=== PATIENT | female | born 1965 | race Caucasian/White ===

== ENCOUNTER 2021-09-07 16:03 | Emergency (ER) | payer SELFPAY ==
[2021-09-07] VITALS (8 sets, daily range): BP systolic 116–138; BP diastolic 60–84; PULSE 90–114; RESP 12–18; TEMP 36.9; O2SAT 91–95; BMI 22.0
[2021-09-07 17:12] LABS: Add Manual Diff / Slide Review NO; Basophils Absolute Auto 100 /uL (0-100); Basophils Percent Auto 1.6 % (0-2); Eosinophils Absolute Auto 100 /uL (0-450); Eosinophils Percent Auto 0.9 % (2-4); Hematocrit 34.8 % (36-46); Hemoglobin 11.6 g/dL (12.0-16.0); Lymphocytes Absolute Auto 1200 /uL (1100-4500); Mean Corpuscular HGB Conc 33.4 % (30-36); Mean Corpuscular Hemoglobin 32.6 PG (26-34); Mean Corpuscular Volume 97.5 fL (80-100); Monocytes Absolute Auto 1000 /uL (0-900); Monocytes Percent Auto 12.6 % (3-14); Neutrophils Absolute Auto 5400 /uL (1500-7000); Neutrophils Percent Auto 69.9 % (50-75); Platelet Count 157 X10^3/uL (150-400); Red Blood Cell Count 3.56 X10^6/uL (4.0-5.2); Red Cell Distribution Width 15.1 % (11.6-14.8); White Blood Cell Count 7.7 X10^3/uL (4.5-11.0)
[2021-09-07 17:26] LABS: INR 1.6 (0.9-1.3); Prothrombin Time 17.4 SECONDS (10.1-12.7)
[2021-09-07 17:29] LABS: PTT Partial Thromboplastin Tim 41 SECONDS (26.4-36.2)
--- NOTE | 2021-09-07 17:29 | DI.US.S_ITS ---
PROCEDURE: US ABDOMEN LIMITED INDICATIONS: eval for GB pathology TECHNIQUE: Real-time focused scanning was performed of the abdomen, with image documentation. COMPARISON: [facility], CT, CT ABDOMEN PELVIS W CON, 09/07/2021, 17:50. FINDINGS: Liver: Increased echogenicity with nodular contour. Measures approximately 16.4 cm in length. No detectable flow within the portal vein, which may be secondary to poor penetration versus thrombus. Gallbladder: Wall thickening, measuring 3.9 mm. Layering sludge within the gallbladder. The CBD measures up to 3.6 mm. Pancreas: Not well seen. Ascites is noted. IMPRESSION: 1. Increase echogenicity of the liver, suggesting hepatic steatosis. 2. Nodular contour of the liver, suggesting cirrhosis. 3. Poor penetration versus portal vein thrombus. 4. Gallbladder wall thickening, which is nonspecific. 5. Layering sludge. Dictated by: Jono Kiser M.D. on 09/07/2021 at 18:52 Approved by: Jono Kiser M.D. on 09/07/2021 at 19:00
--- NOTE | 2021-09-07 17:29 | DI.RAD.S_ITS ---
PROCEDURE: XR ANKLE LT MIN 3V INDICATIONS: pain after fall TECHNIQUE: 3 views of the ankle were acquired. COMPARISON: None. FINDINGS: Bones: No fractures or dislocations. Ankle mortise is normally aligned. No suspicious bony lesions. The talar dome demonstrates no isabel abnormality. Soft tissues: Generalized soft tissue swelling is seen. IMPRESSION: Soft tissue swelling is seen, without an acute bony abnormality seen by plain film. If there is point tenderness (or other clinical suspicion for a fracture not seen on these images) then a dedicated CT or a short-term followup plain film series could be considered for further evaluation, as clinically appropriate. Dictated by: Angelo Baez M.D. on 09/07/2021 at 16:58 Approved by: Angelo Baez M.D. on 09/07/2021 at 16:59
--- NOTE | 2021-09-07 17:30 | DI.CT.S_ITS ---
PROCEDURE: CT ABDOMEN PELVIS W CON INDICATIONS: Abdominal distension after fall TECHNIQUE: After the administration of intravenous contrast, axial sections acquired from the lung bases to the pubic symphysis. Coronal and sagittal reformats were performed. For radiation dose reduction, the following was used: automated exposure control, adjustment of mA and/or kV according to patient size. COMPARISON: None. FINDINGS: Image quality: Excellent. Lung bases: Unremarkable. Heart: No significant findings. ABDOMEN: Liver: Liver is diffusely hypoattenuating with coarsened parenchymal texture but no evidence of focal mass lesion. Portal vein is patent. The intrahepatic IVC however is quite stenotic, in multiple venous collateral vessels are noted adjacent to the distal esophagus, and adjacent to the spleen6. Large tangle of collateral mesenteric vessels noted in the right lower quadrant as well Gallbladder: Unremarkable. Biliary ducts: Unremarkable. Pancreas: Unremarkable. Spleen: Unremarkable. Adrenal Glands: Unremarkable. Kidneys and Ureters: Unremarkable. Stomach and Bowel: Within the cecum, there is a well-defined cystic structure measuring 5 x 3.2 cm which extends into the appendix, with appendiceal distention up to 1.4 cm. Peritoneum: Large amount of free fluid present in the abdomen and pelvis Ventral Wall: No hernias. Abdominal Nodes: No retroperitoneal or mesenteric adenopathy by size criteria. Vessels: Aorta and inferior vena cava are normal in size. PELVIS: Pelvic Organs: Unremarkable. Bladder: Unremarkable. Pelvic Nodes: No enlarged lymph nodes. Miscellaneous: No hernias are seen. Bones: Unremarkable. IMPRESSION: 1. Irregular hepatic parenchyma, large volume ascites, and mesenteric/para esophageal collateral vessels are all consistent with hepatic cirrhosis and portal venous hypertension. Additionally, however, the intrahepatic IVC appears are quite stenotic and this could reflect sequelae of hepatic venous outflow obstruction as well. 2. Well-defined cystic structure in the cecum extending into the appendix associated with fluid distension of the appendix, without periappendiceal inflammatory change. Differential would include appendiceal mucocele Approved by: Cuba Rodas M.D. on 09/07/2021 at 17:59
[2021-09-07 17:35] LABS: Alanine Aminotransferase 26 IU/L (<35); Albumin 3.3 g/dL (3.5-5.0); Albumin Globulin Ratio 0.7 (1.0-2.8); Alkaline Phosphatase 327 U/L (38-126); Ammonia (NH3) 9 umol/L (9-30); Aspartate Aminotransferase 226 IU/L (14-36); BUN Creatinine Ratio 11.5 (6-22); Bilirubin Total 7.5 mg/dL (0.2-1.3); Blood Urea Nitrogen 9 mg/dL (7-17); Calcium 8.3 mg/dL (8.4-10.2); Carbon Dioxide 29 mmol/L (22-32); Chloride 100 mmol/L (98-107); Estimated Glomerular Filt Rate > 60.0 mL/min (>60); Glucose 109 mg/dL (70-100); HEMOLYSIS < 15 (0-50); Potassium 3.6 mmol/L (3.4-5.1); Sodium 139 mmol/L (137-145); Total Protein 8.3 g/dL (6.3-8.2)
--- NOTE | 2021-09-07 18:53 | ED.ABDPAIN ---
HPI - Abdominal Pain General Chief Complaint: Trauma Stated Complaint: distensed belly after fall 2 weeks ago Time Seen by Provider: 09/07/21 18:44 Source: patient Mode of arrival: Ambulatory Limitations: no limitations History of Present Illness HPI narrative: Patient is a 56-year-old female with no past medical history but does admit to drinking vodka cranberry 1-3 drinks daily presenting today with increased abdominal distention. She actually says that 9-10 days ago she slipped and fell down the stairs. She was outside on the porch and fell down a few stairs after caring some wood. She took her boyfriend with her down the stairs. She hurt her left ankle but is still ambulatory on it no head injury no loss of consciousness. She has not had any nausea or vomiting. However over last 2 days she has had increased abdominal distension, boyfriend thought her eyes looked yellow as well. She says he has lower extremity edema. Her left ankle still hurts to walk she is worried that she may have internal bleeding. Has some shortness of breath. sHe says she feels again but knows that she is not. He has no prior history of ascites or cirrhosis. Related Data Allergies Allergy/AdvReac Type Severity Reaction Status Date / Time No Known Drug Allergies Allergy Verified 09/07/21 16:36 Review of Systems Review of Systems Narrative: GENERAL: Denies chills, fatigue, malaise, fever, sweats, travel HEENT: Denies sinus pain, ear pain, sore throat, difficulty swallowing, neck pain RESPIRATORY: Denies dyspnea, cough, wheezing, hemoptysis, sputum. CARDIOVASCULAR: Denies chest pain, palpitations, orthopnea, edema GASTROINTESTINAL: Abdominal distension : Denies dysuria, frequency, incontinence, hematuria, urinary retention, flank pain. MUSCULOSKELETAL: Denies weakness, joint pain, or bony pain SKIN: No rash, no erythema, no pruritus NEUROLOGIC: Denies weakness, dizziness, headache, numbness, change in speech, confusion PSYCHIATRIC: No concerning psychosocial issues. 12 point review of systems is negative except for those stated above and HPI Patient History Social History Smoking Status: Never smoker Smoking Status: Never smoker alcohol intake frequency: 0-2 drinks per day Substance Use Type: does not use Exam Initial Vital Signs Initial Vital Signs: Vital Signs Temperature 98.5 F 11/24/21 16:32 Pulse Rate 114 H 09/07/21 16:32 Respiratory Rate 18 09/07/21 16:32 Blood Pressure 136/84 09/07/21 16:32 Pulse Oximetry 95 09/07/21 16:32 GENERAL: Alert 56-year-old female appears mildly jaundiced awake alert and oriented x4 in no acute distress. HEENT: Head atraumatic,EOMI, pupils reactive, face symmetric, moist mucous membranes CARDIOVASCULAR: Regular rate and rhythm without murmurs, rubs or gallops. RESPIRATORY: Breath sounds equal bilaterally, no wheezes rales or rhonchi. ABDOMEN: Soft, distension,+ fluid wave : No CVA tenderness EXTREMITIES: Normal range of motion, no clubbing or edema. Neurovascularly intact NEUROLOGICAL: Alert and oriented x4.Normal gait and speech. SKIN: Jaundiced no erythema no abscess Procedures Paracentesis Local Anesthetic: lidocaine 1% Amount of anesthesia used (mL): 3 Fluid: clear and sent to lab for analysis Post Procedure Exam: awake, alert, normal BP, normal HR and normal SpO2 Patient Tolerated Procedure: Well Complications: none (At site needed 3 sutures to stop leakage and bleeding) Course Orders Ordered: ED Orders 09/07/21 17:03 Ammonia (NH3) Stat Complete Blood Count AUTO DIFF Stat Comprehensive Metabolic Panel Stat ETOH [Ethanol (ETOH)] Stat Lactate (Lactic Acid) Stat Partial Thromboplastin Time Stat Prothrombin Time INR Stat 09/07/21 17:29 US abdomen limited Stat XR ankle LT min 3V Stat 09/07/21 17:30 CT abdomen pelvis w con Stat 09/07/21 21:15 Albumin Body Fluid Stat Body Fluid Culture Stat Cell Count w Diff Body Fluid Stat 09/07/21 21:40 Ethanol (ETOH) Stat Vital Signs Vital signs: Vital Signs - 8 hr 09/07/21 19:47 09/07/21 20:00 09/07/21 20:30 Pulse Rate 108 H 106 H 107 H Respiratory Rate 12 15 14 Blood Pressure 138/80 127/68 124/72 Pulse Oximetry 94 93 94 09/07/21 21:00 09/07/21 21:30 09/07/21 22:00 Pulse Rate 109 H 111 H 112 H Respiratory Rate 15 14 15 Blood Pressure 128/71 116/66 119/60 Pulse Oximetry 94 91 92 09/07/21 22:30 Pulse Rate 90 Respiratory Rate 14 Blood Pressure 116/60 Pulse Oximetry 93 MDM - Abdominal Pain Lab Data Result diagrams: 09/07/21 17:03 09/07/21 17:03 Labs: Lab Results 09/07/21 09/07/21 09/07/21 Range/Units 17:03 17:03 17:03 WBC 7.7 (4.5-11.0) X10^3/uL RBC 3.56 L (4.0-5.2) X10^6/uL Hgb 11.6 L (12.0-16.0) g/dL Hct 34.8 L (36-46) % MCV 97.5 (80-100) fL MCH 32.6 (26-34) PG MCHC 33.4 (30-36) % RDW 15.1 H (11.6-14.8) % Plt Count 157 (150-400) X10^3/uL Neut % (Auto) 69.9 (50-75) % Lymph % (Auto) 15.0 L (25-40) % [place] % (Auto) 12.6 (3-14) % Eos % (Auto) 0.9 L (2-4) % Baso % (Auto) 1.6 (0-2) % Neut # (Auto) 5400 (4679-3678) /uL Lymph # (Auto) 1200 (9534-8372) /uL [place] # (Auto) 1000 H (0-900) /uL Eos # (Auto) 100 (0-450) /uL Baso # (Auto) 100 (0-100) /uL PT 17.4 H (10.1-12.7) SECONDS INR 1.6 H (0.9-1.3) APTT 41 H (26.4-36.2) SECONDS Sodium 139 (137-145) mmol/L Potassium 3.6 (3.4-5.1) mmol/L Chloride 100 (98-107) mmol/L Carbon Dioxide 29 (22-32) mmol/L BUN 9 (7-17) mg/dL Creatinine 0.78 (0.52-1.04) mg/dL Estimated GFR > 60.0 (>60) mL/min BUN/Creatinine Ratio 11.5 (6-22) Glucose 109 H (70-100) mg/dL Lactate (0.7-2.1) mmol/L Calcium 8.3 L (8.4-10.2) mg/dL Total Bilirubin 7.5 H (0.2-1.3) mg/dL AST 226 H (14-36) IU/L ALT 26 (<35) IU/L Alkaline Phosphatase 327 H (38-126) U/L Ammonia (9-30) umol/L Total Protein 8.3 H (6.3-8.2) g/dL Albumin 3.3 L (3.5-5.0) g/dL Globulin 5.0 H (1.7-4.1) g/dL Albumin/Globulin Ratio 0.7 L (1.0-2.8) Fluid Color Fluid Appearance Fluid RBC /uL Fld Tot Nucleated Cell /uL Fluid Polynuclear WBCs % Fluid Mononuclear WBCs % Fluid Eosinophils % Fluid Other Cells % Body Fluid Clot Fluid Albumin g/dL Ethyl Alcohol ( - 10) mg/dL 09/07/21 09/07/21 09/07/21 Range/Units 17:03 17:03 17:03 WBC (4.5-11.0) X10^3/uL RBC (4.0-5.2) X10^6/uL Hgb (12.0-16.0) g/dL Hct (36-46) % MCV (80-100) fL MCH (26-34) PG MCHC (30-36) % RDW (11.6-14.8) % Plt Count (150-400) X10^3/uL Neut % (Auto) (50-75) % Lymph % (Auto) (25-40) % [place] % (Auto) (3-14) % Eos % (Auto) (2-4) % Baso % (Auto) (0-2) % Neut # (Auto) (4783-7080) /uL Lymph # (Auto) (1862-5855) /uL [place] # (Auto) (0-900) /uL Eos # (Auto) (0-450) /uL Baso # (Auto) (0-100) /uL PT (10.1-12.7) SECONDS INR (0.9-1.3) APTT (26.4-36.2) SECONDS Sodium (137-145) mmol/L Potassium (3.4-5.1) mmol/L Chloride (98-107) mmol/L Carbon Dioxide (22-32) mmol/L BUN (7-17) mg/dL Creatinine (0.52-1.04) mg/dL Estimated GFR (>60) mL/min BUN/Creatinine Ratio (6-22) Glucose (70-100) mg/dL Lactate 3.2 H (0.7-2.1) mmol/L Calcium (8.4-10.2) mg/dL Total Bilirubin (0.2-1.3) mg/dL AST (14-36) IU/L ALT (<35) IU/L Alkaline Phosphatase (38-126) U/L Ammonia 9 (9-30) umol/L Total Protein (6.3-8.2) g/dL Albumin (3.5-5.0) g/dL Globulin (1.7-4.1) g/dL Albumin/Globulin Ratio (1.0-2.8) Fluid Color Fluid Appearance Fluid RBC /uL Fld Tot Nucleated Cell /uL Fluid Polynuclear WBCs % Fluid Mononuclear WBCs % Fluid Eosinophils % Fluid Other Cells % Body Fluid Clot Fluid Albumin g/dL Ethyl Alcohol 192 H ( - 10) mg/dL 09/07/21 09/07/21 09/07/21 Range/Units 21:15 21:40 21:40 WBC (4.5-11.0) X10^3/uL RBC (4.0-5.2) X10^6/uL Hgb (12.0-16.0) g/dL Hct (36-46) % MCV (80-100) fL MCH (26-34) PG MCHC (30-36) % RDW (11.6-14.8) % Plt Count (150-400) X10^3/uL Neut % (Auto) (50-75) % Lymph % (Auto) (25-40) % [place] % (Auto) (3-14) % Eos % (Auto) (2-4) % Baso % (Auto) (0-2) % Neut # (Auto) (4021-3819) /uL Lymph # (Auto) (2052-1058) /uL [place] # (Auto) (0-900) /uL Eos # (Auto) (0-450) /uL Baso # (Auto) (0-100) /uL PT (10.1-12.7) SECONDS INR (0.9-1.3) APTT (26.4-36.2) SECONDS Sodium (137-145) mmol/L Potassium (3.4-5.1) mmol/L Chloride (98-107) mmol/L Carbon Dioxide (22-32) mmol/L BUN (7-17) mg/dL Creatinine (0.52-1.04) mg/dL Estimated GFR (>60) mL/min BUN/Creatinine Ratio (6-22) Glucose (70-100) mg/dL Lactate 2.3 H (0.7-2.1) mmol/L Calcium (8.4-10.2) mg/dL Total Bilirubin (0.2-1.3) mg/dL AST (14-36) IU/L ALT (<35) IU/L Alkaline Phosphatase (38-126) U/L Ammonia (9-30) umol/L Total Protein (6.3-8.2) g/dL Albumin (3.5-5.0) g/dL Globulin (1.7-4.1) g/dL Albumin/Globulin Ratio (1.0-2.8) Fluid Color Yellow Fluid Appearance Clear Fluid RBC < 1000 /uL Fld Tot Nucleated Cell 91 /uL Fluid Polynuclear WBCs 1 % Fluid Mononuclear WBCs 80 % Fluid Eosinophils 0 % Fluid Other Cells 19 % Body Fluid Clot No clots present Fluid Albumin < 1.0 g/dL Ethyl Alcohol 157 H ( - 10) mg/dL Imaging Data US - abdomen: Radiologist's Impression: PROCEDURE: US ABDOMEN LIMITED ? INDICATIONS:? eval for GB pathology ? TECHNIQUE:? Real-time focused scanning was performed of the abdomen, with image documentation.? ? COMPARISON:? [facility], CT, CT ABDOMEN PELVIS W CON, 09/07/2021, 17:50. ? FINDINGS:? Liver:? Increased echogenicity with nodular contour.? Measures approximately 16.4 cm in length. No detectable flow within the portal vein, which may be secondary to poor penetration versus thrombus. ? Gallbladder:? Wall thickening, measuring 3.9 mm.? Layering sludge within the gallbladder. The CBD measures up to 3.6 mm. ? Pancreas:? Not well seen. ? Ascites is noted. ? IMPRESSION:? 1. Increase echogenicity of the liver, suggesting hepatic steatosis. 2. Nodular contour of the liver, suggesting cirrhosis.? 3. Poor penetration versus portal vein thrombus.? 4. Gallbladder wall thickening, which is nonspecific.? 5.? Layering sludge.? ? Dictated by: Jono Kiser M.D. on 09/07/2021 at 18:52 ? ? Approved by: Jono Kiser M.D. on 09/07/2021 at 19:00 ? CT scan - abdomen/pelvis: Radiologist's Impression: PROCEDURE:? CT ABDOMEN PELVIS W CON ? INDICATIONS:? Abdominal distension after fall ? TECHNIQUE:? After the administration of intravenous contrast, axial sections acquired from the lung bases to the pubic symphysis.? Coronal and sagittal reformats were performed.? For radiation dose reduction, the following was used:? automated exposure control, adjustment of mA and/or kV according to patient size.? ? COMPARISON:? None. ? FINDINGS:? Image quality:? Excellent.? ? Lung bases:? Unremarkable. Heart:? No significant findings. ? ABDOMEN: Liver:? Liver is diffusely hypoattenuating with coarsened parenchymal texture but no evidence of focal mass lesion.? Portal vein is patent.? The intrahepatic IVC however is quite stenotic, in multiple venous collateral vessels are noted adjacent to the distal esophagus, and adjacent to the spleen6.? Large tangle of collateral mesenteric vessels noted in the right lower quadrant as well Gallbladder:? Unremarkable.? ? Biliary ducts:? Unremarkable.? ? Pancreas:? Unremarkable.? ? Spleen:? Unremarkable.? ? Adrenal Glands:? Unremarkable.? ? Kidneys and Ureters:? Unremarkable.? ? ? Stomach and Bowel:? Within the cecum, there is a well-defined cystic structure measuring 5 x 3.2 cm which extends into the appendix, with appendiceal distention up to 1.4 cm. Peritoneum:? Large amount of free fluid present in the abdomen and pelvis ? Ventral Wall: ? No hernias.? Abdominal Nodes:? No retroperitoneal or mesenteric adenopathy by size criteria.? Vessels:? Aorta and inferior vena cava are normal in size.? ? PELVIS: Pelvic Organs:? Unremarkable.? ? Bladder:? Unremarkable.? ? Pelvic Nodes: No enlarged lymph nodes.? Miscellaneous: No hernias are seen. ? ? ? Bones:? Unremarkable.? IMPRESSION:? ? 1. Irregular hepatic parenchyma, large volume ascites, and mesenteric/para esophageal collateral vessels are all consistent with hepatic cirrhosis and portal venous hypertension.? Additionally, however, the intrahepatic IVC appears are quite stenotic and this could reflect sequelae of hepatic venous outflow obstruction as well. ? 2. Well-defined cystic structure in the cecum extending into the appendix associated with fluid distension of the appendix, without periappendiceal inflammatory change.? Differential would include appendiceal mucocele? Approved by: Cuba Rodas M.D. on 09/07/2021 at 17:59? Extremity x-ray #1: Radiologist's Impression: PROCEDURE:? XR ANKLE LT MIN 3V ? INDICATIONS:? pain after fall ? TECHNIQUE:? 3 views of the ankle were acquired.? ? COMPARISON:? None. ? FINDINGS:? ? Bones:? No fractures or dislocations.? Ankle mortise is normally aligned.? No suspicious bony lesions.? The talar dome demonstrates no isabel abnormality.? ? Soft tissues:? Generalized soft tissue swelling is seen. ? ? IMPRESSION:? Soft tissue swelling is seen, without an acute bony abnormality seen by plain film. ? If there is point tenderness (or other clinical suspicion for a fracture not seen on these images) then a dedicated CT or a short-term followup plain film series could be considered for further evaluation, as clinically appropriate. ? MDM Narrative Medical decision making narrative: Patient likely has cirrhosis with portal vein hypertension secondary to alcohol use with new onset ascites. She states that she really does not drink excessively and does not even drink every night, however her current alcohol level is 192. Abdomen is distended at paracentesis is easily performed revealing clear yellow fluid with SAAG 3.3. Cytology and culture are pending. She tolerated procedure very well. She is new to the area with out close follow-up. I have discussed with her that she needs to cut back her alcohol use and to do it slowly so that she does not go through withdrawal. Ultrasound do show evidence of cirrhosis portal venous hypertension. Patient was discharged however after reviewing his imaging more carefully there is concern for possible portal vein thrombosis. She has never previously had ascites. Patient's called in the morning and recommended to come back for specific study of portal vein and Doppler. Discharge Plan Departure Patient Disposition: Home Clinical Impression: Abdominal ascites Instructions: DI for Ascites, Abdominal Paracentesis Activity Restrictions/Additional Instructions: *You have been diagnosed with aside *What to do: You have fluid on her abdomen which is unrelated to your fall. Is more likely related to alcohol use. I recommend decreasing alcohol use slowly, so that you do not have a withdrawal seizure. He will need to have sutures taken out in about 5 days You may change her dressing in about 3 days you may shower with it. This fluid will reaccumulate. You will need to have close follow-up with GI. *Continue to take medications as directed *Follow up with your primary care provider in 2-3 days Please start calling and setting up for primary care and GI. *Return to ER if you should have increasing abdominal pain, fever, seizures or any new, worsening or concerning symptoms Referrals: [facility] [Outside] Jorge Fitzpatrick MD [Non-Staff] - Justin Rushing MD [Physician] -
[2021-09-07 19:07] LABS: Ethanol (ETOH) 192 mg/dL; Lactate (Lactic Acid) 3.2 mmol/L (0.7-2.1)
[2021-09-07 20:57] LABS: Reflexed Lactate in 2 Hours Y
[2021-09-07 21:52] LABS: Albumin Body Fluid < 1.0 g/dL
[2021-09-07 21:58] LABS: Body Fluid Tot Nucleated Cells 91 /uL
[2021-09-07 21:59] LABS: Body Fluid Red Blood Cells < 1000 /uL
[2021-09-07 22:00] LABS: Body Fluid Appearance CLEAR; Body Fluid Clotted? NO CLOTS PRESENT; Body Fluid Color YELLOW
[2021-09-07 22:02] LABS: Ethanol (ETOH) 157 mg/dL; Lactate 2HR (Lactic Acid Rflx) 2.3 mmol/L (0.7-2.1)
[2021-09-07 22:19] LABS: Eosinophils Body Fluid 0 %; Mononuclear WBC Body Fluid 80 %; Polynuclear WBC Body Fluid 1 %
[2021-09-07 22:20] LABS: Other Cells Body Fluid 19 %
== END 2021-09-07 23:02 | disposition home or self-care (01) ==
PROVIDERS: Emergency Medicine; Emergency Provider Emergency Medicine
DX: R18.8 Other ascites (principal); Y90.6 Blood alcohol level of 120-199 mg/100 ml; F10.929 Alcohol use, unspecified with intoxication, unspecified
CPT/HCPCS: 36415; 49082; 73610; 74177; 76705; 80053; 80320; 82042; 82140; 83605; 85025; 85610; 85730; 87070; 87075; 87205; 89051; 99284; Q9967

== ENCOUNTER 2021-09-08 12:35 | Emergency (ER) | payer OTHER, SELFPAY ==
[2021-09-08 12:50] VITALS: BP 154/74; PULSE 126; RESP 20; TEMP 36.2; O2SAT 97; BMI 21.2
--- NOTE | 2021-09-08 12:50 | ED_ITS ---
HPI - General Adult General Chief complaint: Recheck/Abnormal Lab/Rx Stated complaint: R/O Possible Liver Blood Clots Time Seen by Provider: 09/08/21 12:36 History of Present Illness HPI narrative: 56-year-old woman with no significant previously diagnosed medical issues, alcohol use disorder who presented to the emergency room yesterday with complaints of ascites and lower extremity edema with some ankle pain after recent fall. Were gave yesterday demonstrated hyperbilirubinemia with a bili at 7.5 elevated AST, ALT out [place]. Lactic acid was elevated as well. Alcohol level was 157. With the abnormal liver studies and ultrasound of the abdomen was ordered that showed increased echogenicity of the liver with a nodular contour suggesting cirrhosis. Poor penetration verses possible portal vein thrombosis. Nonspecific gallbladder wall thickening and layering sludge. CT scan followed and showed a patent portal vein however the intrahepatic inferior vena cava was quite stenotic with multiple venous collateral vessels noted along the distal esophagus an adjacent to the spleen with a ?large tangle of collateral mesenteric vessels noted in the right upper quadrant as well. Also noted was irregular hepatic parenchyma large volume ascites. Paracentesis was performed, unclear how much fluid was removed. After additional review there remains concern for possible portal venous thrombosis and we called the patient and asked her to come back for specific portal vein study with Doppler Related Data Allergies Allergy/AdvReac Type Severity Reaction Status Date / Time No Known Drug Allergies Allergy Verified 09/07/21 16:36 Review of Systems Review of Systems Narrative: Denies fevers, cough, chills, vomiting, diarrhea. Specifically no bloody vomiting or black diarrhea. She notes that her abdominal ascites has not significantly changed. She is not having any dizziness and not currently having any alcohol cravings Remainder of complete review of systems is otherwise unremarkable except for that included in the HPI. Patient History Medical History (Updated 09/08/21 @ 15:16 by Yajaira Galloway MD) Abdominal ascites Cirrhosis Social History Smoking Status: Never smoker Smoking Status: Never smoker alcohol intake frequency: 0-2 drinks per day Substance Use Type: does not use Exam Narrative Exam Narrative: General: Alert appropriate in no acute distress Respiratory: Able to speak in full sentences, no obvious respiratory distress Skin: Mild jaundice, mild scleral icterus, telangiectasias over her skin. Neurologic: Grossly intact no obvious asymmetries or abnormalities Psych: appropriate insight and affect, cooperative Initial Vital Signs Initial Vital Signs: Vital Signs Temperature 97.2 F L 09/08/21 12:50 Pulse Rate 126 H 09/08/21 12:50 Respiratory Rate 20 09/08/21 12:50 Blood Pressure 154/74 H 09/08/21 12:50 Pulse Oximetry 97 09/08/21 12:50 Course Orders Ordered: ED Orders 09/08/21 12:56 Ammonia (NH3) Stat Complete Blood Count AUTO DIFF Stat Comprehensive Metabolic Panel Stat ETOH [Ethanol (ETOH)] Stat Lactate (Lactic Acid) Stat Lipase Stat Magnesium Stat 09/08/21 13:18 COVID19 - ADMIT (GASKET MAKER swab/PCR) Stat 09/08/21 13:35 Blood Culture Stat 09/08/21 13:48 US abdomen limited Stat Discontinued Medications Lorazepam (Lorazepam 0.5 Mg Tablet) 2 mg PO NOW ONE Stop: 09/08/21 12:59 Last Admin: 09/08/21 13:08 Dose: 2 mg Documented by: LESLEY Vital Signs Vital signs: Vital Signs - 8 hr 09/08/21 12:50 09/08/21 13:00 09/08/21 13:30 Temperature 97.2 F L Pulse Rate 126 H 108 H 113 H Respiratory Rate 20 Blood Pressure 154/74 H 142/69 H 149/84 H Pulse Oximetry 97 97 96 09/08/21 14:00 09/08/21 14:30 Temperature Pulse Rate 110 H 106 H Respiratory Rate Blood Pressure 136/73 134/77 Pulse Oximetry 96 96 Medical Decision Making Lab Data Result diagrams: 09/08/21 12:56 09/08/21 12:56 Labs: Lab Results 09/08/21 09/08/21 09/08/21 Range/Units 12:56 12:56 12:56 WBC 8.7 (4.5-11.0) X10^3/uL RBC 3.58 L (4.0-5.2) X10^6/uL Hgb 11.7 L (12.0-16.0) g/dL Hct 35.0 L (36-46) % MCV 97.8 (80-100) fL MCH 32.7 (26-34) PG MCHC 33.4 (30-36) % RDW 15.5 H (11.6-14.8) % Plt Count 156 (150-400) X10^3/uL Neut % (Auto) 74.9 (50-75) % Lymph % (Auto) 13.2 L (25-40) % [place] % (Auto) 11.0 (3-14) % Eos % (Auto) 0.2 L (2-4) % Baso % (Auto) 0.7 (0-2) % Neut # (Auto) 6500 (0688-0451) /uL Lymph # (Auto) 1200 (1209-5073) /uL [place] # (Auto) 1000 H (0-900) /uL Eos # (Auto) 0 (0-450) /uL Baso # (Auto) 100 (0-100) /uL Sodium 136 L (137-145) mmol/L Potassium 3.8 (3.4-5.1) mmol/L Chloride 102 (98-107) mmol/L Carbon Dioxide 25 (22-32) mmol/L BUN 8 (7-17) mg/dL Creatinine 0.70 (0.52-1.04) mg/dL Estimated GFR > 60.0 (>60) mL/min BUN/Creatinine Ratio 11.4 (6-22) Glucose 88 (70-100) mg/dL Lactate (0.7-2.1) mmol/L Calcium 8.1 L (8.4-10.2) mg/dL Magnesium (1.6-2.3) mg/dL Total Bilirubin 7.3 H (0.2-1.3) mg/dL AST 203 H (14-36) IU/L ALT 23 (<35) IU/L Alkaline Phosphatase 299 H (38-126) U/L Ammonia 13 (9-30) umol/L Total Protein 7.9 (6.3-8.2) g/dL Albumin 3.3 L (3.5-5.0) g/dL Globulin 4.6 H (1.7-4.1) g/dL Albumin/Globulin Ratio 0.7 L (1.0-2.8) Lipase (23-300) U/L Ethyl Alcohol 39 H ( - 10) mg/dL SARS-CoV-2 (PCR) (Negative) 09/08/21 09/08/21 09/08/21 Range/Units 12:56 12:56 13:18 WBC (4.5-11.0) X10^3/uL RBC (4.0-5.2) X10^6/uL Hgb (12.0-16.0) g/dL Hct (36-46) % MCV (80-100) fL MCH (26-34) PG MCHC (30-36) % RDW (11.6-14.8) % Plt Count (150-400) X10^3/uL Neut % (Auto) (50-75) % Lymph % (Auto) (25-40) % [place] % (Auto) (3-14) % Eos % (Auto) (2-4) % Baso % (Auto) (0-2) % Neut # (Auto) (9995-0185) /uL Lymph # (Auto) (1053-7356) /uL [place] # (Auto) (0-900) /uL Eos # (Auto) (0-450) /uL Baso # (Auto) (0-100) /uL Sodium (137-145) mmol/L Potassium (3.4-5.1) mmol/L Chloride (98-107) mmol/L Carbon Dioxide (22-32) mmol/L BUN (7-17) mg/dL Creatinine (0.52-1.04) mg/dL Estimated GFR (>60) mL/min BUN/Creatinine Ratio (6-22) Glucose (70-100) mg/dL Lactate 2.8 H (0.7-2.1) mmol/L Calcium (8.4-10.2) mg/dL Magnesium 1.6 (1.6-2.3) mg/dL Total Bilirubin (0.2-1.3) mg/dL AST (14-36) IU/L ALT (<35) IU/L Alkaline Phosphatase (38-126) U/L Ammonia (9-30) umol/L Total Protein (6.3-8.2) g/dL Albumin (3.5-5.0) g/dL Globulin (1.7-4.1) g/dL Albumin/Globulin Ratio (1.0-2.8) Lipase 1022 H (23-300) U/L Ethyl Alcohol ( - 10) mg/dL SARS-CoV-2 (PCR) Negative (Negative) MDM Narrative Medical decision making narrative: 56-year-old woman with a history of newly diagnosed ascites presumably from alcoholic cirrhosis with probable portal vein hypertension causing significant hepatic abnormalities. She is new to the area and will be reaching out for both the primary care physician by calling [facility] and setting up appointments to gastroenterology. Workup yesterday in retrospect was concerning for possible portal vein thrombosis. She was called and asked to return today for ultrasound with Doppler. This was performed and her portal vein was patent. Findings reviewed with the patient along with the importance of stopping drinking, using the Ativan that was prescribed with her emergency department visit last night. Questions were answered and she is safe for home discharge Discharge Plan Departure Patient Disposition: Home Clinical Impression: Abdominal ascites, Cirrhosis, Alcohol use disorder Instructions: DI for Cirrhosis Activity Restrictions/Additional Instructions: Thank you for coming back today. We wanted make sure that you did not have a portal vein thrombosis. Your ultrasound today does show an open portal vein. You do need to follow-up with a primary care physician. You can call [phone] to see which providers in [place] may be accepting new patients. You can call [facility] gastroenterology and let them know your in the emergency department diagnosed with new ascites with cirrhosis and need to be seen and evaluated. Phone numbers below Please do all the can to stay away from alcohol completely. If you have worsening symptoms please feel free to return to the ER Referrals: Jorge Fitzpatrick MD [Non-Staff] -
[2021-09-08 13:00] VITALS: BP 142/69; PULSE 108; O2SAT 97
[2021-09-08 13:05] LABS: Add Manual Diff / Slide Review NO; Basophils Absolute Auto 100 /uL (0-100); Basophils Percent Auto 0.7 % (0-2); Eosinophils Absolute Auto 0 /uL (0-450); Eosinophils Percent Auto 0.2 % (2-4); Hemoglobin 11.7 g/dL (12.0-16.0); Lymphocytes Absolute Auto 1200 /uL (1100-4500); Lymphocytes Percent Auto 13.2 % (25-40); Mean Corpuscular HGB Conc 33.4 % (30-36); Mean Corpuscular Hemoglobin 32.7 PG (26-34); Mean Corpuscular Volume 97.8 fL (80-100); Monocytes Absolute Auto 1000 /uL (0-900); Neutrophils Absolute Auto 6500 /uL (1500-7000); Neutrophils Percent Auto 74.9 % (50-75); Platelet Count 156 X10^3/uL (150-400); Red Blood Cell Count 3.58 X10^6/uL (4.0-5.2); Red Cell Distribution Width 15.5 % (11.6-14.8); White Blood Cell Count 8.7 X10^3/uL (4.5-11.0)
[2021-09-08] MEDS: LORazepam 0.5 MG TABLET 2 MG PO (13:08)
[2021-09-08 13:15] LABS: Ammonia (NH3) 13 umol/L (9-30); Lipase 1022 U/L (23-300); Magnesium 1.6 mg/dL (1.6-2.3)
[2021-09-08 13:16] LABS: Alanine Aminotransferase 23 IU/L (<35); Albumin 3.3 g/dL (3.5-5.0); Albumin Globulin Ratio 0.7 (1.0-2.8); Alkaline Phosphatase 299 U/L (38-126); Aspartate Aminotransferase 203 IU/L (14-36); BUN Creatinine Ratio 11.4 (6-22); Bilirubin Total 7.3 mg/dL (0.2-1.3); Blood Urea Nitrogen 8 mg/dL (7-17); Calcium 8.1 mg/dL (8.4-10.2); Carbon Dioxide 25 mmol/L (22-32); Chloride 102 mmol/L (98-107); Estimated Glomerular Filt Rate > 60.0 mL/min (>60); Ethanol (ETOH) 39 mg/dL; Globulin 4.6 g/dL (1.7-4.1); Glucose 88 mg/dL (70-100); HEMOLYSIS 34 (0-50); Potassium 3.8 mmol/L (3.4-5.1); Sodium 136 mmol/L (137-145); Total Protein 7.9 g/dL (6.3-8.2)
[2021-09-08 13:17] LABS: Lactate (Lactic Acid) 2.8 mmol/L (0.7-2.1)
[2021-09-08 13:30] VITALS: BP 149/84; PULSE 113; O2SAT 96
--- NOTE | 2021-09-08 13:48 | DI.US.S_ITS ---
PROCEDURE: US ABDOMEN LIMITED INDICATIONS: POSSIBLE PORTAL VEIN THROMBOSIS TECHNIQUE: Real-time focused scanning was performed of the abdomen, with image documentation. COMPARISON: [facility], , US ABDOMEN LIMITED, 09/07/2021, 18:05. FINDINGS: Liver: The liver is enlarged measuring 20.5 cm. Hepatic parenchymal density is increased consistent with cirrhosis. The main portal vein is 1.9 cm with hepatopetal flow. Gallbladder/biliary: Layering gallbladder sludge is seen. No gallbladder wall thickening. The common bile duct measures 6.3 mm. Pancreas: Not well seen due to overlying bowel gas. Miscellaneous: Ascites is present. IMPRESSION: 1. Cirrhosis with sequela of portal venous hypertension including ascites. 2. Ascites. Dictated by: Kyle Breen M.D. on 09/08/2021 at 15:09 Approved by: Kyle Breen M.D. on 09/08/2021 at 15:11
[2021-09-08 14:00] VITALS: BP 136/73; PULSE 110; O2SAT 96
[2021-09-08 14:30] VITALS: BP 134/77; PULSE 106; O2SAT 96
[2021-09-08 14:36] LABS: COVID19 - ADMIT (NP swab/PCR) Negative (Negative)
[2021-09-08 15:00] LABS: Reflexed Lactate in 2 Hours Y
--- NOTE | 2021-09-08 15:33 | PC.NURSE ---
Went to check on patient at discharge and patient did stumble and admitted to feeling off balance. Educated patient not to drive and to get ride from significant other. Patient acknowledged this teaching. Notified Provider and Charge of education.
== END 2021-09-08 15:35 | disposition home or self-care (01) ==
PROVIDERS: Emergency Provider Emergency Medicine
DX: R18.8 Other ascites (principal); K74.60 Unspecified cirrhosis of liver; F10.10 Alcohol abuse, uncomplicated; Y90.1 Blood alcohol level of 20-39 mg/100 ml; Z20.822 Contact with and (suspected) exposure to COVID-19
CPT/HCPCS: 36415; 76705; 80053; 80320; 82140; 83605; 83690; 83735; 85025; 87040; 87635; 99283; 99284; C9803

== ENCOUNTER 2021-09-12 14:41 | Emergency (ER) | payer SELFPAY ==
[2021-09-12 14:44] VITALS: BP 125/58; PULSE 98; RESP 20; TEMP 36.5; O2SAT 98
--- NOTE | 2021-09-12 18:14 | PC.NURSE ---
I called patient to bring her back to a room and no answer from the lobby. charge aware
== END 2021-09-12 18:14 | disposition left against medical advice (07) ==
PROVIDERS: Emergency Provider Emergency Medicine
DX: Z53.21 Procedure and treatment not carried out due to patient leaving prior to being seen by health care provider (principal)
CPT/HCPCS: 99281

== ENCOUNTER 2021-09-13 13:18 | Emergency (ER) | payer SELFPAY ==
[2021-09-13 13:28] VITALS: BP 160/65; PULSE 108; RESP 15; TEMP 36.3; O2SAT 97; BMI 21.9
--- NOTE | 2021-09-13 15:07 | ED.RECABL ---
HPI - Recheck/Abnormal Lab/Rx General Chief Complaint: Recheck/Abnormal Lab/Rx Stated Complaint: stomach distended, ankle swollen Time Seen by Provider: 09/13/21 14:41 Source: patient Mode of arrival: Ambulatory Limitations: no limitations History of Present Illness HPI narrative: Patient seen here last week September 07 in September 08. New onset of ascites. History of alcohol use. She has stopped drinking since last week. She is here for evaluation of abdominal swelling and ankle swelling. Reviewed images with her. Regarding ultrasounds and x-rays. She does not want any ultrasound of the leg or CT scan the leg. She states feels better with walking on the ankle. However she is amenable for crutches to alleviate pressure on the ankle. Patient states her abdomen isn't quite as distended as last week. She did get paracentesis done. Laboratory studies reviewed from last week. They are reassuring. Patient here today to inquire about any medicines to help alleviate for ascites. I told her I will speak with Gastroenterology with [facility]. 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 Otherwise no new complaints. Related Data Previous Rx's Medication Instructions Recorded lorazepam 1 mg tablet (Ativan) 1 mg PO TID PRN #10 tab 09/08/21 furosemide 40 mg tablet (Lasix) 40 mg PO DAILY #20 tab 09/13/21 spironolactone 100 mg tablet 100 mg PO DAILY #20 tab 09/13/21 (Aldactone) Allergies Allergy/AdvReac Type Severity Reaction Status Date / Time No Known Drug Allergies Allergy Verified 09/13/21 13:27 Review of Systems Review of Systems Narrative: GENERAL: Denies chills, fatigue, malaise, fever, sweats. HEENT: Denies sinus pain, ear pain, sore throat RESPIRATORY: Denies dyspnea, cough CARDIOVASCULAR: Denies chest pain, palpitations GASTROINTESTINAL: Denies nausea, vomiting, abdominal pain : Denies dysuria, frequency, hematuria MUSCULOSKELETAL: Positive muscle or bony pain SKIN: Denies rash, skin lesions NEUROLOGIC: Denies weakness, numbness ROS Unobtainable: All systems reviewed & are unremarkable except as noted in HPI and below Patient History Medical History Abdominal ascites Cirrhosis Social History Smoking Status: Never smoker Smoking Status: Never smoker alcohol intake frequency: other Substance Use Type: does not use Exam Narrative Exam Narrative: GENERAL: in no distress, not toxic not dyspneic HEAD: Normocephalic. EYES: Pupils equal round slight icterus bilaterally. ENT: Mucous membranes moist. NECK: Trachea midline. CARDIOVASCULAR: Regular rate and rhythm without murmurs RESPIRATORY: Clear to auscultation. Breath sounds equal bilaterally. No wheezes, rales, or rhonchi. GASTROINTESTINAL: Abdomen soft, non-tender, no peritoneal signs, abdomen is slightly distended. Left lower quadrant stitches are clean dry intact. EXTREMITIES: No gross deformities. Left ankle mild edema with healing bruise. Able to flex and extend with ankle. No gross deformity. NEURO: AOx4. Awake alert oriented x4. Clear speech. SKIN: Warm and dry. No jaundice PSYCH: Not anxious, is cooperative Initial Vital Signs Initial Vital Signs: Vital Signs Temperature 97.4 F L 09/13/21 13:28 Pulse Rate 108 H 09/13/21 13:28 Respiratory Rate 15 09/13/21 13:28 Blood Pressure 160/65 H 09/13/21 13:28 Pulse Oximetry 97 09/13/21 13:28 Course Course Course Narrative: No new issues during course of stay Reevaluation(s) Reevaluation #1: Patient is not on any laboratory studies or imaging. She wanted to inquire about medications to alleviate swelling. Informed her weight 5 more days to have stitches removed from the left lower quadrant of the abdomen. It has only been 5 days. Consultations Consultation #1: I spoke with [facility] Gastroenterology on-call, Dr. Willson, recommends Lasix 40 mg daily, Aldactone 100 mg daily. Vital Signs Vital signs: Vital Signs - 8 hr 09/13/21 13:28 09/13/21 15:24 Temperature 97.4 F L Pulse Rate 108 H 100 H Respiratory Rate 15 16 Blood Pressure 160/65 H 141/87 H Pulse Oximetry 97 99 MDM - Recheck/Abnormal Lab/Rx Differential Diagnosis Differential diagnosis: Likely other (Ascites, wound check on the abdomen) MDM Narrative Medical decision making narrative: Appropriate for discharge home. Patient enquiring for diuretics. I did contact Gastroenterology for medication suggestions. Patient agrees with treatment plan. Does agree with crutches. Understands return 5 days for stitch removal. Return precautions reviewed with her. Not toxic at discharge. Discharge Plan Departure Patient Disposition: Home Clinical Impression: Abdominal ascites, Edema, peripheral Instructions: DI for Ascites Activity Restrictions/Additional Instructions: Be sure to call previous referrals for Gastroenterology from her previous visits. Call today. Use crutches to alleviate stress on your ankle to reduce swelling. Ice and elevate leg/ankle 20 minutes at a time for any swelling. May use compression stockings to help alleviate swelling. Return if worsening questions or concerns. Call provided orthopedic office regarding your ankle injury from previous visit. Call for appointment. Prescriptions: New furosemide [Lasix] 40 mg tablet 40 mg PO DAILY Qty: 20 0RF spironolactone [Aldactone] 100 mg tablet 100 mg PO DAILY Qty: 20 0RF No Action lorazepam [Ativan] 1 mg tablet 1 mg PO TID PRN (Reason: alcohol withdrawal) Qty: 10 0RF Referrals: Jorge Fitzpatrick MD [Non-Staff] - Eve Mccrary MD [Physician] -
[2021-09-13 15:24] VITALS: BP 141/87; PULSE 100; RESP 16; O2SAT 99
== END 2021-09-13 15:27 | disposition home or self-care (01) ==
PROVIDERS: Emergency Provider Emergency Medicine
DX: R18.8 Other ascites (principal)
CPT/HCPCS: 99281; 99282

== ENCOUNTER 2021-09-18 12:05 | Emergency (ER) | payer SELFPAY ==
[2021-09-18 12:38] VITALS: BP 129/89; PULSE 106; RESP 20; TEMP 37.2; O2SAT 95; BMI 20.8
--- NOTE | 2021-09-18 12:53 | ED.RECABL ---
HPI - Recheck/Abnormal Lab/Rx General Chief Complaint: Recheck/Abnormal Lab/Rx Stated Complaint: NEED TO REMOVE LT SIDE STITCHES Time Seen by Provider: 09/18/21 12:53 Source: patient Mode of arrival: Family Vehicle Limitations: no limitations History of Present Illness HPI narrative: 56-year-old woman presents for removal of 2 sutures that are at a left lower quadrant paracentesis site. Related Data Previous Rx's Medication Instructions Recorded lorazepam 1 mg tablet (Ativan) 1 mg PO TID PRN #10 tab 09/08/21 furosemide 40 mg tablet (Lasix) 40 mg PO DAILY #20 tab 09/13/21 spironolactone 100 mg tablet 100 mg PO DAILY #20 tab 09/13/21 (Aldactone) Allergies Allergy/AdvReac Type Severity Reaction Status Date / Time No Known Drug Allergies Allergy Verified 09/18/21 12:45 Patient History Medical History Abdominal ascites Cirrhosis Social History Smoking Status: Never smoker Smoking Status: Never smoker alcohol intake frequency: other Substance Use Type: does not use Exam Narrative Exam Narrative: Mild jaundice Mild ascites no abdominal pain 2 sutures removed from the left lower quadrant, healing nicely no persistent peritoneal drainage Initial Vital Signs Initial Vital Signs: Vital Signs Temperature 98.9 F 09/18/21 12:38 Pulse Rate 106 H 09/18/21 12:38 Respiratory Rate 20 09/18/21 12:38 Blood Pressure 129/89 09/18/21 12:38 Pulse Oximetry 95 09/18/21 12:38 Course Vital Signs Vital signs: Vital Signs - 8 hr 09/18/21 12:38 Temperature 98.9 F Pulse Rate 106 H Respiratory Rate 20 Blood Pressure 129/89 Pulse Oximetry 95 MDM - Recheck/Abnormal Lab/Rx MDM Narrative Medical decision making narrative: Sutures removed Discharge Plan Departure Patient Disposition: Home Clinical Impression: Encounter for removal of sutures Instructions: DI for Suture Removal Prescriptions: No Action furosemide [Lasix] 40 mg tablet 40 mg PO DAILY Qty: 20 0RF spironolactone [Aldactone] 100 mg tablet 100 mg PO DAILY Qty: 20 0RF lorazepam [Ativan] 1 mg tablet 1 mg PO TID PRN (Reason: alcohol withdrawal) Qty: 10 0RF
[2021-09-18 13:34] VITALS: PULSE 102; O2SAT 96
== END 2021-09-18 13:35 | disposition home or self-care (01) ==
PROVIDERS: Emergency Provider Emergency Medicine
DX: Z48.1 Encounter for planned postprocedural wound closure (principal)
CPT/HCPCS: 99281

== ENCOUNTER 2022-06-13 20:43 | Observation (INO) | payer OTHER, SELFPAY ==
[2022-06-13] VITALS (10 sets, daily range): BP systolic 118–142; BP diastolic 63–68; PULSE 76–100; RESP 16–48; TEMP 37.2; O2SAT 84–100; BMI 23.3
--- NOTE | 2022-06-13 20:48 | DI.CT.S_ITS ---
PROCEDURE: CT HEAD/BRAIN WO CON INDICATIONS: altered, multiple syncopal episodes TECHNIQUE: Noncontrast 4.5 mm thick angled axial sections acquired from the foramen magnum to the vertex, with coronal and sagittal reformats. For radiation dose reduction, the following was used: automated exposure control, adjustment of mA and/or kV according to patient size. COMPARISON: None. FINDINGS: Image quality: Excellent. CSF spaces: Basal cisterns are patent. No extra-axial fluid collections. Ventricles are normal in size and shape. Brain: No intracranial hemorrhage, mass, or mass effect. Grant-white matter interface appears preserved. Skull and face: Calvarium and visualized facial bones are intact, without suspicious lesions. Sinuses: Visualized sinuses and mastoids are clear. IMPRESSION: 1. No acute intracranial abnormality. Dictated by: Thiago Fuller M.D. on 06/13/2022 at 22:58 Approved by: Thiago Fuller M.D. on 06/13/2022 at 22:59
--- NOTE | 2022-06-13 20:48 | DI.RAD.S_ITS ---
PROCEDURE: XR CHEST 1V INDICATIONS: sepsis, syncope TECHNIQUE: One view of the chest was acquired. COMPARISON: None. FINDINGS: Surgical changes and devices: None. Lungs and pleura: Lungs are clear. No pleural effusions or pneumothorax. Mediastinum: Mediastinal contours appear normal. Heart size is normal. Bones and chest wall: No suspicious bony lesions. Overlying soft tissues appear unremarkable. IMPRESSION: 1. No acute cardiopulmonary disease. Dictated by: Thiago Fuller M.D. on 06/13/2022 at 23:18 Approved by: Thiago Fuller M.D. on 06/13/2022 at 23:18
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
[2022-06-13 21:30] LABS: COVID19 -Nasal RAPID Negative (Negative)
[2022-06-13 21:45] LABS: Add Manual Diff / Slide Review NO; Basophils Absolute Auto 100 /uL (0-100); Basophils Percent Auto 1.4 % (0-2); Eosinophils Absolute Auto 100 /uL (0-450); Eosinophils Percent Auto 2.4 % (2-4); Hematocrit 30.8 % (36-46); Hemoglobin 10.2 g/dL (12.0-16.0); Lymphocytes Absolute Auto 700 /uL (1100-4500); Lymphocytes Percent Auto 15.7 % (25-40); Mean Corpuscular HGB Conc 33.1 % (30-36); Mean Corpuscular Hemoglobin 29.2 PG (26-34); Mean Corpuscular Volume 88.2 fL (80-100); Monocytes Absolute Auto 1100 /uL (0-900); Monocytes Percent Auto 22.5 % (3-14); Neutrophils Absolute Auto 2700 /uL (1500-7000); Platelet Count 122 X10^3/uL (150-400); Red Blood Cell Count 3.49 X10^6/uL (4.0-5.2); Red Cell Distribution Width 17.3 % (11.6-14.8); White Blood Cell Count 4.7 X10^3/uL (4.5-11.0)
[2022-06-13 21:55] LABS: Alanine Aminotransferase 24 IU/L (<35); Albumin 3.5 g/dL (3.5-5.0); Albumin Globulin Ratio 0.9 (1.0-2.8); Alkaline Phosphatase 91 U/L (38-126); Aspartate Aminotransferase 84 IU/L (14-36); BUN Creatinine Ratio 22.1 (6-22); Bilirubin Total 2.5 mg/dL (0.2-1.3); Blood Urea Nitrogen 23 mg/dL (7-17); Calcium 8.4 mg/dL (8.4-10.2); Carbon Dioxide 20 mmol/L (22-32); Chloride 107 mmol/L (98-107); Creatine Kinase 602 U/L (30-135); Estimated Glomerular Filt Rate > 60 mL/min (>60); Globulin 3.8 g/dL (1.7-4.1); Glucose 85 mg/dL (70-100); HEMOLYSIS < 15 (0-50); INR 1.6 (0.9-1.3); Lactate (Lactic Acid) 1.8 mmol/L (0.7-2.1); Potassium 3.3 mmol/L (3.4-5.1); Prothrombin Time 18.5 SECONDS (10.1-12.7); Sodium 138 mmol/L (137-145); Total Protein 7.3 g/dL (6.3-8.2)
[2022-06-13 21:57] LABS: Acetaminophen < 10 ug/mL (10-30); Ethanol (ETOH) < 10 mg/dL; Salicylate < 1.0 mg/dL (<20)
[2022-06-13 22:01] LABS: Ammonia (NH3) 16 umol/L (9-30)
[2022-06-13 22:06] LABS: Troponin I 0.015 ng/mL (0.01-0.034)
[2022-06-13 22:10] LABS: CKMB % Relative Index 0.9 % (1.5-5.0); Creatine Kinase MB 5.49 ng/mL (<2.37)
[2022-06-13 22:11] LABS: Procalcitonin 0.25 ng/mL (<0.5)
[2022-06-14] VITALS (7 sets, daily range): BP systolic 119–137; BP diastolic 60–76; PULSE 76–100; RESP 17–23; TEMP 36.6–37.2; O2SAT 94–97; BMI 22.8
[2022-06-14] MEDS: HALOPERIDOL 5 MG/ML VIAL 2 MG IV (00:23)
[2022-06-14 00:44] LABS: Magnesium 1.8 mg/dL (1.6-2.3)
[2022-06-14] MEDS: THIAMINE 200 MG in SODIUM CHLORIDE 0.9% 100 ML 408 MG IV (01:02)
--- NOTE | 2022-06-14 01:54 | PC.NURSE ---
Pt still having hallucinations- states there are animals and pople in her room when pt is alone in her room. Pt asking what is reality vs not. This RN helping reorient pt to reality and what is hallucinations vs not. Pt receptive to this and remains easily redirectable. Pt cooperative with staff and answers orientation questions appropriately. Pt not diaphoretic, nauseated, endorsing anxiety or pain at this time.
--- NOTE | 2022-06-14 02:45 | DI.MRI.S_ITS ---
PROCEDURE: MR HEAD/BRAIN W CON INDICATIONS: Acute delirium, syncope TECHNIQUE: Postcontrast fat saturated axial, sagittal, and coronal sequences of the brain are performed.. COMPARISON: [facility], CT, CT HEAD/BRAIN WO CON, 06/13/2022, 20:55. FINDINGS: Image quality: Excellent. CSF spaces: Ventricles are normal in size and shape. Basal cisterns are patent. No extra-axial fluid collections. Brain: No intracranial bleeds or mass effects. Grant-white matter interface appears intact. No abnormal intracranial enhancement. Skull and face: Calvarial marrow enhancement is normal. Orbits appear normal. Sinuses: Sinuses and mastoids are clear. IMPRESSION: IV contrast enhanced only examination is within normal limits Dictated by: Isac Spangler M.D. on 06/14/2022 at 10:41 Approved by: Isac Spangler M.D. on 06/14/2022 at 10:42
[2022-06-14] MEDS: LACTATED RINGERS 1,000 ML 42 ML IV (03:20)
[2022-06-14 05:30] LABS: Add Manual Diff / Slide Review NO; Basophils Absolute Auto 100 /uL (0-100); Basophils Percent Auto 1.2 % (0-2); Eosinophils Absolute Auto 100 /uL (0-450); Eosinophils Percent Auto 2.6 % (2-4); Hematocrit 29.9 % (36-46); Hemoglobin 10.1 g/dL (12.0-16.0); Lymphocytes Absolute Auto 1300 /uL (1100-4500); Lymphocytes Percent Auto 27.7 % (25-40); Mean Corpuscular HGB Conc 33.7 % (30-36); Mean Corpuscular Hemoglobin 29.3 PG (26-34); Mean Corpuscular Volume 86.9 fL (80-100); Monocytes Absolute Auto 900 /uL (0-900); Monocytes Percent Auto 18.8 % (3-14); Neutrophils Absolute Auto 2300 /uL (1500-7000); Neutrophils Percent Auto 49.7 % (50-75); Platelet Count 125 X10^3/uL (150-400); Red Blood Cell Count 3.44 X10^6/uL (4.0-5.2); Red Cell Distribution Width 17.8 % (11.6-14.8); White Blood Cell Count 4.7 X10^3/uL (4.5-11.0)
[2022-06-14 05:34] LABS: INR 1.6 (0.9-1.3); Prothrombin Time 18.6 SECONDS (10.1-12.7)
[2022-06-14 05:48] LABS: Gamma Glutamyl Transpeptidase 185 U/L (12-43)
[2022-06-14 05:51] LABS: Alanine Aminotransferase 24 IU/L (<35); Albumin 3.2 g/dL (3.5-5.0); Albumin Globulin Ratio 0.9 (1.0-2.8); Alkaline Phosphatase 83 U/L (38-126); Amylase 49 U/L (30-110); Aspartate Aminotransferase 82 IU/L (14-36); BUN Creatinine Ratio 20.4 (6-22); Bilirubin Total 2.4 mg/dL (0.2-1.3); Blood Urea Nitrogen 19 mg/dL (7-17); Calcium 8.5 mg/dL (8.4-10.2); Carbon Dioxide 24 mmol/L (22-32); Chloride 109 mmol/L (98-107); Estimated Glomerular Filt Rate > 60 mL/min (>60); Globulin 3.5 g/dL (1.7-4.1); Glucose 73 mg/dL (70-100); HEMOLYSIS < 15 (0-50); Lactate Dehydrogenase 482 U/L (313-618); Lipase 133 U/L (23-300); Magnesium 1.8 mg/dL (1.6-2.3); Potassium 3.6 mmol/L (3.4-5.1); Sodium 140 mmol/L (137-145); Total Protein 6.7 g/dL (6.3-8.2)
[2022-06-14 05:54] LABS: Troponin I 0.012 ng/mL (0.01-0.034)
[2022-06-14 05:59] LABS: NT-proBNP (BNP-Adult 18+) 275 pg/mL (<125)
--- NOTE | 2022-06-14 06:51 | PC.NURSE ---
Admit/NOC Shift Note- Patient arrived to room via stretcher at 0305. Patient confused with hallucinations, and implusiviness, patient unable to answer admit questions at this time. siezure pads p[laced on bed. CIWA at 0 at this time. Bed alarm activated and patient room in view of nurses station for safety. Bed alarm activated. Call woodall within reach. Will continue to monitor.
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
--- NOTE | 2022-06-14 07:55 | DI.US.S_ITS ---
PROCEDURE: US ABDOMEN LIMITED INDICATIONS: CIRRHOSIS, LOOK FOR ASCITES AND AT LIVER PER TECHNIQUE: Real-time scanning was performed of the abdominal and retroperitoneal organs, with image documentation. COMPARISON: [facility], CT, CT ABDOMEN PELVIS W CON, 09/07/2021, 17:50. [facility], US, US ABDOMEN LIMITED, 09/08/2021, 14:23. FINDINGS: Liver: Upper limits normal in size measuring 17.4 cm in length. Heterogeneous echotexture. Liver surface appears nodular. There is hepatofugal (reversed) flow in the main portal vein. Concern for nonocclusive thrombus in the main portal vein. No obvious hepatic mass. Gallbladder: Contracted. Suspect small stones and/or sludge. Normal gallbladder wall thickness. No pericholecystic fluid. Negative sonographic Maxwell's sign. Biliary ducts: Intrahepatic bile ducts are non-dilated. Extrahepatic bile duct caliber measures 6 mm. Normal is 6-7 mm or less in diameter, or 10 mm or less post-cholecystectomy. Pancreas: Visualized portions of the pancreas are sonographically normal. Pancreatic head is not well seen. Miscellaneous: No free abdominal fluid identified. IMPRESSION: 1. Cirrhotic liver morphology. No obvious hepatic mass. 2. Suspect nonocclusive thrombus in the main portal vein. Portal vein demonstrates hepatofugal (reversed flow) consistent with portal hypertension. -This could be further evaluated with multiphase liver CT. 3. No ascites identified. 4. Contracted gallbladder. Likely small stones and/or sludge. Dictated by: Rell Arcos M.D. on 06/14/2022 at 9:53 Approved by: Rell Arcos M.D. on 06/14/2022 at 10:06
[2022-06-14] MEDS: ENOXAPARIN 40 MG/0.4 ML SYRINGE SUBCUT (09:09)
[2022-06-14] MEDS: cefTRIAXone 2,000 MG in SODIUM CHLORIDE 0.9% 100 ML 200 MG IV (09:10)
[2022-06-14] MEDS: MULTIVITAMIN 1 TABLET 1 TAB PO (09:10)
[2022-06-14] MEDS: LACTULOSE 20 GM/30 ML SOLUTION PO ×2 (09:10→20:02)
[2022-06-14] MEDS: FOLIC ACID 1 MG TABLET PO (09:10)
[2022-06-14] MEDS: THIAMINE 100 MG TABLET PO (09:10)
--- NOTE | 2022-06-14 10:11 | DI.CT.S_ITS ---
PROCEDURE: CT CHEST, MULTIPHASE ABDOMEN/LIVER, PELVIS W/WO CON INDICATIONS: assess for esophageal/gastric varices, portal v thrombus TECHNIQUE: Non-contrast images of the abdomen were obtained. After the administration of intravenous contrast, 5 mm thick sections acquired from the lung apices to the symphysis in portal venous phase. Arterial and delayed phase images of the abdomen also obtained. 5 mm coronal and sagittal reformats were performed, with additional 7 mm MIP reformats through the lungs. For radiation dose reduction, the following was used: automated exposure control, adjustment of mA and/or kV according to patient size. COMPARISON: [facility], CT, CT ABDOMEN PELVIS W CON, 09/07/2021, 17:50. [facility], US, US ABDOMEN LIMITED, 06/14/2022, 9:15. FINDINGS: Image quality: Excellent. CHEST: Lungs and pleura: No consolidation or substantial ground-glass opacity. 3 millimeter nodule lateral right upper lobe (8/51). No pleural effusions or pneumothorax. Central and peripheral airways appear patent and normal in caliber. Mediastinum: Heart size is normal. No pericardial effusion. No mediastinal or hilar adenopathy by size criteria. Thoracic aorta and central pulmonary arteries are normal in size. Esophagus is normal in caliber. No hiatal hernia. Chest wall: No axillary or supraclavicular adenopathy by size criteria. ABDOMEN: Solid organs: Morphologic changes of cirrhosis are present as before. No suspicious focal liver lesion identified. Gallbladder is largely collapsed with tiny layering stones/gravel present. Biliary system is non dilated. Pancreas enhances normally. Spleen is normal in size and enhancement. No adrenal nodules. Kidneys demonstrate normal size and enhancement, without hydronephrosis. Mildly hyperdense material present within both renal collecting systems on the noncontrast images, nonspecific. Peritoneum and bowel: Bowel loops demonstrate normal wall thickness and caliber. Trace perihepatic free fluid. No free air. Nodes and vessels: No retroperitoneal or mesenteric adenopathy by size criteria. Aorta and inferior vena cava are normal in size. No portal vein thrombus visualized. Upper abdominal varices are present including adjacent to the lower esophagus, at the gastrohepatic ligament, near the splenic hilum, left retroperitoneal, left abdomen. Probable portal-systemic shunt involving branches of the superior mesenteric vein and the right ovarian vein with a mass/collection of varices at the right lower abdomen/upper pelvis as before. Miscellaneous: No ventral hernias. PELVIS: Genitourinary: Bladder wall thickness is normal. Miscellaneous: No inguinal hernias or adenopathy. Bones: No suspicious bony lesions. No vertebral body compression fractures. IMPRESSION: 1. Abdominal/pelvic varices are present as above. 2. No portal vein thrombus visualized. 3. Morphologic changes of cirrhosis. No suspicious focal liver lesion is visualized. 4. Cholelithiasis. 5. A 3 millimeter pulmonary nodule is present at the right upper lobe. Have the patient is considered low risk, imaging follow-up is not necessary per Fleischner society guidelines. If the patient is considered high risk, an optional 12 month follow-up chest CT could be obtained. 6. Mildly hyperdense material is present within both renal collecting systems on the noncontrast images, nonspecific. If the patient has received intravenous contrast for a recent study, this could represent excretion of previously administered contrast. Otherwise, the etiology or significance of this finding is uncertain. Correlation with patient's symptoms and urinalysis for hematuria may be helpful. No hydronephrosis. Dictated by: Rene Loya M.D. on 06/14/2022 at 11:56 Approved by: Rene Loya M.D. on 06/14/2022 at 12:53
[2022-06-14 10:25] LABS: UR Morphine/Opiate cutoff 300 Negative (Negative); Ur Creatinine Normal (Normal); Ur Specific Gravity Normal (Normal); Urine Amphetamines Negative (Negative); Urine Cocaine Negative (Negative); Urine Methamphetamines Negative (Negative); Urine pH Normal (Normal)
[2022-06-14 10:26] LABS: Urine Barbiturates Negative (Negative); Urine Benzodiazepines Negative (Negative); Urine MDMA Negative (Negative); Urine Methadone Negative (Negative); Urine Oxycodone Negative (Negative); Urine Phencyclidine Negative (Negative); Urine Tricyclic Antidepressant Negative (Negative)
[2022-06-14] MEDS: METHYLPREDNISOLONE IV (12:03)
[2022-06-14] MEDS: SODIUM CHLORIDE 0.9% IV (12:03)
[2022-06-14 12:34] LABS: Troponin I < 0.012 ng/mL (0.01-0.034)
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
--- NOTE | 2022-06-14 16:45 | PC.NURSE ---
Pt AxOx3-4 and calm and cooperative. VSS, pt denies pain, CIWA score was -1. Pt has MRI, US abd, and CT chest and abd today. There was found some clotts on her portal so pt may transfer to ICU tomorrow per MD. Pt is eating well and drinking well. No AMS, syncope episode. Pt's orientation has improved so much since she was admitted. Otherwis, no changes. Continue monitor.
[2022-06-15 01:40] VITALS: BP 122/65; PULSE 78; RESP 18; TEMP 36.8; O2SAT 96
--- NOTE | 2022-06-15 01:50 | PC.NURSE ---
Pt awakened by AIRPORT LOCATION MANAGER for vitals check. Pt with disorganized thinking-walking around the room and checking the drawers trying to find the happy birthday banner agreed that if she can't find it then there is nothing she can do about it. Calm and cooperative but appears very distracted though re-directable. VS checked, Pt returned to bed and fresh sheet and blanket placed on Pt for comfort. Pt denies needs at this time but agrees to call for assistance as needed. Bed alarm on for safety. Oriented to place, self.
[2022-06-15 05:40] VITALS: BP 132/64; PULSE 75; RESP 18; TEMP 36.8; O2SAT 96
[2022-06-15 05:47] LABS: INR 1.6 (0.9-1.3); Prothrombin Time 18.1 SECONDS (10.1-12.7)
[2022-06-15 05:48] LABS: Add Manual Diff / Slide Review NO; Basophils Absolute Auto 100 /uL (0-100); Basophils Percent Auto 1.8 % (0-2); Eosinophils Absolute Auto 0 /uL (0-450); Eosinophils Percent Auto 0.4 % (2-4); Hematocrit 31.6 % (36-46); Hemoglobin 10.4 g/dL (12.0-16.0); Lymphocytes Absolute Auto 800 /uL (1100-4500); Lymphocytes Percent Auto 18.4 % (25-40); Mean Corpuscular Hemoglobin 29.1 PG (26-34); Mean Corpuscular Volume 88.2 fL (80-100); Monocytes Absolute Auto 800 /uL (0-900); Monocytes Percent Auto 17.8 % (3-14); Neutrophils Absolute Auto 2800 /uL (1500-7000); Neutrophils Percent Auto 61.6 % (50-75); Platelet Count 147 X10^3/uL (150-400); Red Blood Cell Count 3.58 X10^6/uL (4.0-5.2); Red Cell Distribution Width 17.5 % (11.6-14.8); White Blood Cell Count 4.6 X10^3/uL (4.5-11.0)
[2022-06-15 05:52] LABS: Alanine Aminotransferase 25 IU/L (<35); Albumin 3.4 g/dL (3.5-5.0); Albumin Globulin Ratio 0.9 (1.0-2.8); Alkaline Phosphatase 81 U/L (38-126); Aspartate Aminotransferase 72 IU/L (14-36); BUN Creatinine Ratio 17.3 (6-22); Bilirubin Total 1.5 mg/dL (0.2-1.3); Blood Urea Nitrogen 13 mg/dL (7-17); Calcium 8.5 mg/dL (8.4-10.2); Carbon Dioxide 23 mmol/L (22-32); Chloride 108 mmol/L (98-107); Estimated Glomerular Filt Rate > 60 mL/min (>60); Globulin 3.9 g/dL (1.7-4.1); Glucose 99 mg/dL (70-100); HEMOLYSIS < 15 (0-50); Potassium 3.5 mmol/L (3.4-5.1); Sodium 139 mmol/L (137-145); Total Protein 7.3 g/dL (6.3-8.2)
[2022-06-15 08:00] VITALS: BP 137/56; PULSE 81; RESP 16; TEMP 36.9; O2SAT 97
[2022-06-15] MEDS: ENOXAPARIN 40 MG/0.4 ML SYRINGE SUBCUT (08:40)
[2022-06-15] MEDS: FOLIC ACID 1 MG TABLET PO (08:40)
[2022-06-15] MEDS: MULTIVITAMIN 1 TABLET 1 TAB PO (08:40)
[2022-06-15] MEDS: THIAMINE 100 MG TABLET PO (08:40)
[2022-06-15] MEDS: cefTRIAXone 1,000 MG in SODIUM CHLORIDE 0.9% 100 ML 200 MG IV (08:40)
[2022-06-15] MEDS: LACTULOSE 20 GM/30 ML SOLUTION PO (08:41)
[2022-06-15] MEDS: POTASSIUM CHLORIDE 20 MEQ TAB 40 MEQ PO (09:15)
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
--- NOTE | 2022-06-15 12:30 | PC.NURSE ---
Pt is AxOx4, independent and cooperative. VSS, orientation is intact and CIWA-0. Pt is medically stable and denies pain. Pt is eating well and voiding well. D/c instruction given to pt and significant other. Pt is now ready d/c home.
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
== END 2022-06-15 13:23 | disposition home or self-care (01) ==
LOC: ED 06-14 02:35 → AC 06-14 03:54 → ICU 06-20 08:12
PROVIDERS: Student in an Organized Health Care Education/Training Program; Admitting Provider Nurse Practitioner Family; Emergency Provider Emergency Medicine; Referring Provider Emergency Medicine; Visit Provider Nurse Practitioner Family
DX: K72.00 Acute and subacute hepatic failure without coma (principal); K70.30 Alcoholic cirrhosis of liver without ascites; N39.0 Urinary tract infection, site not specified; F10.139 Alcohol abuse with withdrawal, unspecified; Y90.0 Blood alcohol level of less than 20 mg/100 ml; Z20.822 Contact with and (suspected) exposure to COVID-19
CPT/HCPCS: 36415; 70450; 70552; 71045; 71260; 74177; 76705; 80053; 80305; 80320; 80329; 82140; 82150; 82550; 82553; 82977; 83605; 83615; 83690; 83735; 83880; 84145; 84484; 85025; 85610; 87040; 87086; 87635; 93005; 96365; 96366; 96367; 96372; 96375; 99284; C9803; G0378; G0480; J0696; J1630; J1650; J2930; Q9967

== ENCOUNTER → 2022-10-27 10:15 | Outpatient (CLI) | payer OTHER, MEDICAID, SELFPAY ==
[2022-06-14 03:16] VITALS: BMI 22.8
== END ==
PROVIDERS: Visit Provider Student in an Organized Health Care Education/Training Program
DX: N39.0 Urinary tract infection, site not specified (principal)
CPT/HCPCS: 81002; 87077; 87086; 87186

== ENCOUNTER → 2023-05-14 14:41 | Outpatient (CLI) | payer OTHER, SELFPAY ==
[2022-06-14 03:16] VITALS: BMI 22.8
== END ==
PROVIDERS: Visit Provider Nurse Practitioner Family
DX: N39.0 Urinary tract infection, site not specified (principal)
CPT/HCPCS: 87077; 87086; 87186

== ENCOUNTER 2023-06-17 21:52 | Emergency (ER) | payer OTHER, SELFPAY ==
[2022-06-14 03:16] VITALS: BMI 22.8
[2023-06-17 22:04] VITALS: BP 133/72; PULSE 100; RESP 18; TEMP 36.6; O2SAT 94; BMI 21.2
[2023-06-17 22:09] VITALS: O2SAT 95
[2023-06-17 22:10] VITALS: BP 135/66; PULSE 95; O2SAT 92
--- NOTE | 2023-06-17 22:29 | PC.NURSE ---
Pt reports itching her left leg sometime tonight then subsequently has had a small, pinpoint spot on her left outer thigh begin to bleed and has continued to bleed. Pt tried pressure, ice, and bandages but nothing has stopped the bleeding. Pt is lightheaded. Denies SOB, chest pain or any blood thinners including aspirin. Pressure bandage applied by this RN. After 5 minutes bandage was showing some blood so this RN applied more pressure bandage and leg is elevated on pillows. Encouraged to use call light for needs.
[2023-06-17 22:30] VITALS: PULSE 90; O2SAT 94
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
[2023-06-17 23:00] VITALS: PULSE 89; O2SAT 93
== END 2023-06-17 23:30 | disposition home or self-care (01) ==
PROVIDERS: Emergency Provider Emergency Medicine
DX: S71.112A Laceration without foreign body, left thigh, initial encounter (principal); X58.XXXA Exposure to other specified factors, initial encounter
CPT/HCPCS: 99281; 99282

== ENCOUNTER → 2023-07-19 17:19 | Outpatient (CLI) | payer SELFPAY ==
[2022-06-14 03:16] VITALS: BMI 22.8
--- NOTE | 2023-07-19 17:23 | DI.RAD.S_ITS ---
PROCEDURE: XR FOOT LT MIN 3V INDICATIONS: Left foot pain TECHNIQUE: 3 views of the foot were acquired. COMPARISON: None. FINDINGS: Bones: No fractures or dislocations. Normal alignment on nonweightbearing view. Mild 1st MTP joint space narrowing. Remainder of the joint spaces are maintained. No suspicious bony lesions. Soft tissues: No tibiotalar joint effusion. Achilles tendon appears normal. No significant soft tissue swelling or radiopaque foreign body. IMPRESSION: No acute osseous abnormality. Dictated by: Elizabeth Viera M.D. on 07/20/2023 at 9:09 Approved by: Elizabeth Viera M.D. on 07/20/2023 at 9:12
== END ==
PROVIDERS: Referring Provider Nurse Practitioner Family; Visit Provider Nurse Practitioner Family
DX: M79.672 Pain in left foot (principal)
CPT/HCPCS: 73630

== ENCOUNTER → 2024-03-02 09:26 | Outpatient (CLI) | payer OTHER, SELFPAY ==
[2022-06-14 03:16] VITALS: BMI 22.8
== END ==
PROVIDERS: Visit Provider Physician Assistant Medical
DX: R10.9 Unspecified abdominal pain (principal); R30.0 Dysuria
CPT/HCPCS: 87077; 87086; 87186

== ENCOUNTER → 2024-08-07 15:46 | Outpatient (CLI) | payer BC, SELFPAY ==
[2022-06-14 03:16] VITALS: BMI 22.8
== END ==
PROVIDERS: Visit Provider Physician Assistant Medical
DX: R30.0 Dysuria (principal); N30.01 Acute cystitis with hematuria
CPT/HCPCS: 87077; 87086; 87186

== ENCOUNTER → 2024-10-15 10:19 | Outpatient (CLI) | payer SELFPAY ==
[2022-06-14 03:16] VITALS: BMI 22.8
== END ==
PROVIDERS: Visit Provider Nurse Practitioner Family
DX: J02.9 Acute pharyngitis, unspecified (principal)
CPT/HCPCS: 87070

== ENCOUNTER 2024-12-25 18:29 | Emergency (ER) | payer BC, SELFPAY ==
[2022-06-14 03:16] VITALS: BMI 22.8
[2024-12-25] VITALS (12 sets, daily range): BP systolic 109–136; BP diastolic 53–73; PULSE 77–107; RESP 15–18; TEMP 36.3; O2SAT 91–97; BMI 21.6
--- NOTE | 2024-12-25 18:45 | DI.RAD.S_ITS ---
PROCEDURE: XR CHEST 1V INDICATIONS: chest pain TECHNIQUE: One view of the chest was acquired. COMPARISON: [facility], CR, XR CHEST 1V, 06/13/2022, 20:55. FINDINGS: Surgical changes and devices: None. Lungs and pleura: Lungs are clear. No pleural effusions or pneumothorax. Mediastinum: Mediastinal contours appear normal. Heart size is normal. Bones and chest wall: No suspicious bony lesions. Overlying soft tissues appear unremarkable. IMPRESSION: No acute cardiopulmonary abnormality is seen. Dictated by: Rell Arcos M.D. on 12/25/2024 at 19:19 Approved by: Rell Arcos M.D. on 12/25/2024 at 19:20
--- NOTE | 2024-12-25 18:46 | DI.CT.S_ITS ---
PROCEDURE: CT HEAD/BRAIN WO CON INDICATIONS: fall. + LOC, laceration TECHNIQUE: Noncontrast 4.5 mm thick angled axial sections acquired from the foramen magnum to the vertex, with coronal and sagittal reformats. For radiation dose reduction, the following was used: automated exposure control, adjustment of mA and/or kV according to patient size. COMPARISON: [facility], CT, CT HEAD/BRAIN WO CON, 06/13/2022, 20:55. FINDINGS: Image quality: Diagnostic. CSF spaces: Basal cisterns are patent. No extra-axial fluid collections. Ventricles are normal in size and shape. Brain: No midline shift. No intracranial masses or hemorrhage. Grant-white matter interface is normal. Skull and face: Calvarium and visualized facial bones are intact, without suspicious lesions. Left parietal occipital scalp hematoma. Sinuses: Visualized sinuses and mastoids are clear. IMPRESSION: 1. No acute intracranial process. 2. Left parietal occipital scalp hematoma. Dictated by: Giselle Weldon M.D. on 12/25/2024 at 19:59 Approved by: Giselle Weldon M.D. on 12/25/2024 at 19:59
--- NOTE | 2024-12-25 18:52 | EKG_ITS ---
[address] [address] Test Date: 2024-12-25 Pat Name: Alba Barboza Department: Room: Gender: Female Compliance Advisor: [place]ISH : [id number] Requested By: Order Number: [id number] Reading MD: Eric Cook Measurements Intervals [place] Rate: 67 P: 54 TN: 176 QRS: 7 QRSD: 88 T: 7 QT: 418 QTc: 441 Interpretive Statements Normal sinus rhythm Possible Inferior infarct , age undetermined Cannot rule out Anterior infarct , age undetermined Electronically Signed On 12-27-2024 18:28:55 PDT by Eric Cook
--- NOTE | 2024-12-25 19:41 | PC.NURSE ---
Pt refusing IV and labs at this time. States I just fell and bumped my head. Dr. Mckeon made aware. Pt to imaging at this time via ED stretcher with oil bay technician.
--- NOTE | 2024-12-25 20:26 | ED.GENADULT ---
HPI - General Adult General Chief complaint: Syncope Stated complaint: Fall, hit head, no blood thinners Time Seen by Provider: 12/25/24 20:26 Source: patient Mode of arrival: Ambulatory History of Present Illness HPI narrative: patient is a 59-year-old female with a past medical history of alcohol abuse, hypertension, recurrent falls, comes into the ED from home for evaluation of mechanical trip and fall. She states that she slipped in the tub fell hit the back of her head, states that she did have about 10 minutes of LOC, states that she is currently on antibiotics for UTI, she states that she does drink alcoholic beverages more than 3 times a day did admit to drinking today. Her only complaint at this time is that she had bleeding to the back of her head. She states that she is only here because she needs the back of her head fixed. She states that she did not have any syncopal or presyncopal symptoms before or after the fall. She states that it was purely mechanical trip and fall. Related Data Previous Rx's Medication Instructions Recorded amoxicillin 500 mg capsule 500 mg PO TID #21 caps 12/08/24 sulfamethoxazole 800 1 tab PO BID #14 tabs 12/08/24 mg-trimethoprim 160 mg tablet (Bactrim DS) tolterodine 2 mg capsule,extended 2 mg PO BEDTIME #30 caps 12/08/24 release 24 hr (Detrol LA) Allergies Allergy/AdvReac Type Severity Reaction Status Date / Time No Known Drug Allergies Allergy Verified 12/25/24 18:40 Review of Systems Review of Systems Narrative: General: Mechanical trip and fall, Denies fever, chills, weight loss HEENT: Bleeding from back of head, after mechanical trip and fall Denies headache, eye drainage, eye irritation, head trauma, sore throat, voice change Cardiovascular: Denies any chest pain, palpitations, tachycardia Respiratory: Denies any shortness of breath, cough, wheeze, stridor GI/: Denies any abdominal pain, nausea, vomiting, diarrhea, bright red blood per rectum, melanotic stools, urinary frequency, urinary retention, dysuria, hematuria MSK: Denies any joint pain, muscle pains, swelling Skin: Denies any rashes, lesions, discoloration Neuro: Denies any headache, lightheadedness, dizziness, fainting, weakness Psych: Denies SI/HI Patient History Medical History Stress incontinence Acute maxillary sinusitis Well adult exam Alcohol abuse Portal hypertension Cirrhosis Abdominal ascites Social History household members: significant other Smoking Status: Never smoker Smoking Status: Never smoker alcohol intake frequency: other Alcohol type: wine Exam Narrative Exam Narrative: General: Cooperative, comfortable, well-developed, not in acute distress HEENT: Patient with 1 cm laceration not actively bleeding to the posterior aspect of the head, ecchymosis noted to the left side of the face however no palpable step-offs, extraocular eye motions all intact. There is no tenderness to palpation of the midline spine. She has no focal deficits Neck: Active full range of motion, atraumatic Chest: Normal to inspection, negative crepitus, no overlying erythema ecchymosis Respiratory: Normal respiratory effort, not in acute respiratory distress, clear to auscultation bilaterally negative cough, wheeze, tachypnea, rhonchi, rales Cardiology: Regular rate rhythm negative gallop, murmur, rubs GI/: Normal to inspection, soft, nonrigid, no tenderness to palpation, exam deferred MSK: Full range of active range of motion of all 4 extremities, atraumatic, there is no tenderness to palpation of any bony prominences Skin: No rashes lesions noted Neuro: NIH of 0, no focal deficits moving all 4 extremities spontaneously Alert awake oriented x3, cranial nerves intact, able to answer all questions appropriately follows commands appropriately Psych: Cooperative, negative suicidal or homicidal ideations Initial Vital Signs Initial Vital Signs: Vital Signs Temperature 97.4 F L 12/25/24 18:32 Pulse Rate 83 12/25/24 18:32 Respiratory Rate 15 12/25/24 18:32 Blood Pressure 113/67 12/25/24 18:32 Pulse Oximetry 97 12/25/24 18:32 Oxygen Delivery Method Room Air 12/25/24 18:32 Procedures Laceration Repair Laceration 1: Time of procedure: 23:03 Site: scalp Side (If applicable): left Size (cm): 1 Description: linear Depth: simple, single layer Local Anesthetic: lidocaine 1% Amount of anesthesia used (mL): 5 Pre-repair: wound explored, irrigated extensively and deep structures intact Skin layer closed with: stevan (2) Course Orders Ordered: ED Orders 12/25/24 18:45 XR chest 1V Stat EKG-12 Lead Stat 12/25/24 18:46 CT head/brain wo con Stat 12/25/24 20:58 Complete Blood Count AUTO DIFF Stat Comprehensive Metabolic Panel Stat ETOH [Ethanol (ETOH)] Stat Lipase Stat Magnesium Stat NT-proBNP (BNP-Adult 18+) Stat PTT Partial Thromboplastin Mikel Stat Prothrombin Time INR Stat Troponin & CK Cardiac Panel Stat Discontinued Medications Aspirin (Aspirin 81 Mg Chew Tab) 324 mg PO NOW ONE Stop: 12/25/24 18:46 Lidocaine HCl (Lidocaine 2% Inj Mdv 20ml) 10 ml INJ INTRA-OP ONE Stop: 12/25/24 20:47 Last Admin: 12/25/24 21:12 Dose: 10 ml Documented By: EVE Vital Signs Vital signs: Vital Signs - 8 hr 12/25/24 18:32 12/25/24 19:37 Temperature 97.4 F L Pulse Rate 83 81 Respiratory Rate 15 18 Blood Pressure 113/67 136/73 Pulse Oximetry 97 97 Oxygen Delivery Method Room Air Room Air Medical Decision Making Differential Diagnosis Differential Diagnosis: Intracranial hemorrhage, closed head injury, scalp laceration Lab Data 12/25/24 20:58 12/25/24 20:58 Labs: Lab Results 12/25/24 Range/Units 20:58 WBC 4.3 L (4.5-11.0) X10^3/uL RBC 3.76 L (4.0-5.2) X10^6/uL Hgb 11.9 L (12.0-16.0) g/dL Hct 35.8 L (36-46) % MCV 95.2 (80-100) fL MCH 31.7 (26-34) PG MCHC 33.3 (30-36) % RDW 16.5 H (11.6-14.8) % Plt Count 55 L (150-400) X10^3/uL Neut % (Auto) 51.5 (50-75) % Lymph % (Auto) 29.1 (25-40) % [place] % (Auto) 17.0 H (3-14) % Eos % (Auto) 0.3 L (2-4) % Baso % (Auto) 2.1 H (0-2) % Neut # (Auto) 2200 (8696-3526) /uL Lymph # (Auto) 1200 (7819-5986) /uL [place] # (Auto) 700 (0-900) /uL Eos # (Auto) 0 (0-450) /uL Baso # (Auto) 100 (0-100) /uL PT 17.2 H (9.4-12.5) SECONDS INR 1.5 H (0.9-1.3) APTT 52 H (25.1-36.5) SECONDS Sodium 143 (137-145) mmol/L Potassium 4.2 (3.4-5.1) mmol/L Chloride 108 H (98-107) mmol/L Carbon Dioxide 27 (22-32) mmol/L BUN 20 H (7-17) mg/dL Creatinine 1.03 (0.52-1.04) mg/dL Estimated GFR > 60 (>60) mL/min BUN/Creatinine Ratio 19.4 (6-22) Glucose 115 H (70-100) mg/dL Calcium 8.7 (8.4-10.2) mg/dL Magnesium 1.5 L (1.6-2.3) mg/dL Total Bilirubin 2.4 H (0.2-1.3) mg/dL AST 109 H (14-36) IU/L ALT 25 (<35) IU/L Alkaline Phosphatase 111 (38-126) U/L Total Creatine Kinase 135 (30-135) U/L Troponin I 0.021 (0.01-0.034) ng/mL NT-Pro-B Natriuret Pep 32 (<125) pg/mL Total Protein 6.5 (6.3-8.2) g/dL Albumin 2.9 L (3.5-5.0) g/dL Globulin 3.6 (1.7-4.1) g/dL Albumin/Globulin Ratio 0.8 L (1.0-2.8) Lipase 438 H (23-300) U/L Ethyl Alcohol 270 H ( - 10) mg/dL Imaging Data CT scan - head: Radiologist's Impression: [address] [address] [address] Scan Report Signed Patient: Alba Barboza MR#: [id number] : 1965 Acct:[id number] Age/Sex: 59 / F Date of Service: 12/25/24 Loc: ED Accession Number: [id number] Procedure: CT head/brain wo con Ordering Provider: Eric Peña D.O. PROCEDURE: CT HEAD/BRAIN WO CON INDICATIONS: fall. + LOC, laceration TECHNIQUE: Noncontrast 4.5 mm thick angled axial sections acquired from the foramen magnum to the vertex, with coronal and sagittal reformats. For radiation dose reduction, the following was used: automated exposure control, adjustment of mA and/or kV according to patient size. COMPARISON: [facility], CT, CT HEAD/BRAIN WO CON, 06/13/2022, 20:55. FINDINGS: Image quality: Diagnostic. CSF spaces: Basal cisterns are patent. No extra-axial fluid collections. Ventricles are normal in size and shape. Brain: No midline shift. No intracranial masses or hemorrhage. Grant-white matter interface is normal. Skull and face: Calvarium and visualized facial bones are intact, without suspicious lesions. Left parietal occipital scalp hematoma. Sinuses: Visualized sinuses and mastoids are clear. IMPRESSION: 1. No acute intracranial process. 2. Left parietal occipital scalp hematoma. Chest x-ray: Radiologist's Impression: [place] [address] XRay Report Signed Patient: Alba Barboza MR#: [id number] : 1965 Acct:[id number] Age/Sex: 59 / F Date of Service: 12/25/24 Loc: ED Accession Number: [id number] Procedure: XR chest 1V Ordering Provider: Eric Peña D.O. PROCEDURE: XR CHEST 1V INDICATIONS: chest pain TECHNIQUE: One view of the chest was acquired. COMPARISON: [facility], CR, XR CHEST 1V, 06/13/2022, 20:55. FINDINGS: Surgical changes and devices: None. Lungs and pleura: Lungs are clear. No pleural effusions or pneumothorax. Mediastinum: Mediastinal contours appear normal. Heart size is normal. Bones and chest wall: No suspicious bony lesions. Overlying soft tissues appear unremarkable. IMPRESSION: No acute cardiopulmonary abnormality is seen. ECG Data Interpretation: EKG interpreted by ED physician sinus at 67 beats per minute QTC [address] changes no STEMI MDM Narrative Medical decision making narrative: 59-year-old female with a past medical history of alcohol abuse, hypertension, recurrent falls secondary to this presents from home for evaluation mechanical trip and fall. Was in the bathroom slipped hit the back of her head she does admit to losing consciousness for about 10 seconds, patient had EKG performed which did not show any ischemic changes CT of the head without any acute fractures or intracranial bleeding did note left parietal hematoma she states that she only came in to fix the cut on the back of her head, she states that she did not have any syncopal or presyncopal symptoms no chest pain shortness of breath prior or before the event. Patient had 1 cm laceration to the posterior aspect of the scalp, did have this repaired with 2 stevan. Lab work was consistent with slightly elevated liver function tests consistent with history of alcohol abuse, alcohol is 270 here however patient has at bedside states will take patient home. She was given strict return precautions she verbalized understanding of this and agrees to being discharged home with outpatient follow up. Discharge Plan Departure Patient Disposition: Home Clinical Impression: Closed head injury, Laceration of scalp, Alcohol abuse Instructions: DI for Laceration Repair -- [place] Activity Restrictions/Additional Instructions: You have 2 stevan that were placed in the emergency department that need to be removed in 5-7 days Please follow up with the primary care doctor Please read the discharge instructions sheet carefully and bring all papers to all doctor follow-up visits, as it may contain information that your doctor may want to see. Disease processes change and evolve, if your symptoms worsen or if you develop any new symptoms that are concerning to you please return for evaluation. Your evaluation today does not show any evidence of any life-threatening/serious illnesses requiring admission to the hospital or surgery. Please follow-up with your doctor for re-evaluation in approximately 1 day. Seek immediate medical attention for any worrisome symptoms. *If you do not have a primary care provider please contact the [facility] Resource line at [phone]. They will ask some questions about your medical history and help get you set up with a doctor in the community. Prescriptions: No Action amoxicillin 500 mg capsule 500 mg PO TID Qty: 21 0RF sulfamethoxazole-trimethoprim [Bactrim DS] 800-160 mg tablet 1 tab PO BID Qty: 14 0RF Rx Instructions: Take at onset of UTI symptoms tolterodine [Detrol LA] 2 mg capsule,extended release 24hr 2 mg PO BEDTIME Qty: 30 2RF Referrals: Doug Trevino DO [Primary Care Provider] - Stand Alone Forms: Patient Portal/API/Survey
[2024-12-25 21:10] LABS: Add Manual Diff / Slide Review NO; Basophils Absolute Auto 100 /uL (0-100); Basophils Percent Auto 2.1 % (0-2); Eosinophils Absolute Auto 0 /uL (0-450); Eosinophils Percent Auto 0.3 % (2-4); Hematocrit 35.8 % (36-46); Hemoglobin 11.9 g/dL (12.0-16.0); Lymphocytes Absolute Auto 1200 /uL (1100-4500); Lymphocytes Percent Auto 29.1 % (25-40); Mean Corpuscular HGB Conc 33.3 % (30-36); Mean Corpuscular Hemoglobin 31.7 PG (26-34); Mean Corpuscular Volume 95.2 fL (80-100); Monocytes Absolute Auto 700 /uL (0-900); Neutrophils Absolute Auto 2200 /uL (1500-7000); Neutrophils Percent Auto 51.5 % (50-75); Platelet Count 55 X10^3/uL (150-400); Red Blood Cell Count 3.76 X10^6/uL (4.0-5.2); Red Cell Distribution Width 16.5 % (11.6-14.8); White Blood Cell Count 4.3 X10^3/uL (4.5-11.0)
[2024-12-25] MEDS: LIDOCAINE 2% INJ MDV 20ML 10 ML INJ (21:12)
[2024-12-25 21:17] LABS: INR 1.5 (0.9-1.3); Prothrombin Time 17.2 SECONDS (9.4-12.5)
[2024-12-25 21:20] LABS: PTT Partial Thromboplastin Tim 52 SECONDS (25.1-36.5)
[2024-12-25 21:23] LABS: Alanine Aminotransferase 25 IU/L (<35); Albumin 2.9 g/dL (3.5-5.0); Albumin Globulin Ratio 0.8 (1.0-2.8); Alkaline Phosphatase 111 U/L (38-126); Aspartate Aminotransferase 109 IU/L (14-36); BUN Creatinine Ratio 19.4 (6-22); Bilirubin Total 2.4 mg/dL (0.2-1.3); Blood Urea Nitrogen 20 mg/dL (7-17); Calcium 8.7 mg/dL (8.4-10.2); Carbon Dioxide 27 mmol/L (22-32); Chloride 108 mmol/L (98-107); Creatine Kinase 135 U/L (30-135); Estimated Glomerular Filt Rate > 60 mL/min (>60); Globulin 3.6 g/dL (1.7-4.1); Glucose 115 mg/dL (70-100); HEMOLYSIS < 15 (0-50); Lipase 438 U/L (23-300); Magnesium 1.5 mg/dL (1.6-2.3); Potassium 4.2 mmol/L (3.4-5.1); Sodium 143 mmol/L (137-145); Total Protein 6.5 g/dL (6.3-8.2)
[2024-12-25 21:26] LABS: Ethanol (ETOH) 270 mg/dL
[2024-12-25 21:34] LABS: NT-proBNP (BNP-Adult 18+) 32 pg/mL (<125); Troponin I 0.021 ng/mL (0.01-0.034)
--- NOTE | 2024-12-25 21:52 | PC.NURSE ---
Ambulatory to restroom without difficulty or assistance
== END 2024-12-25 23:15 | disposition home or self-care (01) ==
PROVIDERS: Emergency Provider Student in an Organized Health Care Education/Training Program; PCP Family Medicine
DX: S06.9X1A Unspecified intracranial injury with loss of consciousness of 30 minutes or less, initial encounter (principal); S01.01XA Laceration without foreign body of scalp, initial encounter; R07.9 Chest pain, unspecified; F10.129 Alcohol abuse with intoxication, unspecified; Y90.8 Blood alcohol level of 240 mg/100 ml or more
CPT/HCPCS: 12001; 70450; 71045; 80053; 80320; 82550; 83690; 83735; 83880; 84484; 85025; 85610; 85730; 93005; 99283; 99284

== ENCOUNTER 2024-12-29 16:18 | Inpatient (IN) | payer BC, SELFPAY ==
[2022-06-14 03:16] VITALS: BMI 22.8
[2024-12-29] VITALS (29 sets, daily range): BP systolic 101–137; BP diastolic 46–63; PULSE 68–96; RESP 11–23; TEMP 36.6; O2SAT 92–98; BMI 21.6
[2024-12-29 17:00] LABS: Add Manual Diff / Slide Review NO; Basophils Absolute Auto 100 /uL (0-100); Basophils Percent Auto 1.3 % (0-2); Eosinophils Absolute Auto 100 /uL (0-450); Eosinophils Percent Auto 1.6 % (2-4); Hematocrit 33.3 % (36-46); Hemoglobin 11.2 g/dL (12.0-16.0); Lymphocytes Absolute Auto 1100 /uL (1100-4500); Lymphocytes Percent Auto 20.6 % (25-40); Mean Corpuscular HGB Conc 33.6 % (30-36); Mean Corpuscular Hemoglobin 32.4 PG (26-34); Mean Corpuscular Volume 96.7 fL (80-100); Monocytes Absolute Auto 1100 /uL (0-900); Neutrophils Absolute Auto 3100 /uL (1500-7000); Neutrophils Percent Auto 56.5 % (50-75); Platelet Count 73 X10^3/uL (150-400); Red Blood Cell Count 3.45 X10^6/uL (4.0-5.2); Red Cell Distribution Width 16.9 % (11.6-14.8); White Blood Cell Count 5.5 X10^3/uL (4.5-11.0)
[2024-12-29 17:13] LABS: Acetaminophen < 10 ug/mL (10-30); Alanine Aminotransferase 27 IU/L (<35); Albumin 3.4 g/dL (3.5-5.0); Albumin Globulin Ratio 0.9 (1.0-2.8); Alkaline Phosphatase 103 U/L (38-126); Aspartate Aminotransferase 97 IU/L (14-36); BUN Creatinine Ratio 15.3 (6-22); Bilirubin Total 3.1 mg/dL (0.2-1.3); Blood Urea Nitrogen 21 mg/dL (7-17); Calcium 8.8 mg/dL (8.4-10.2); Carbon Dioxide 21 mmol/L (22-32); Chloride 101 mmol/L (98-107); Estimated Glomerular Filt Rate 45 mL/min (>60); Ethanol (ETOH) 79 mg/dL; Globulin 3.6 g/dL (1.7-4.1); Glucose 92 mg/dL (70-100); HEMOLYSIS < 15 (0-50); Potassium 3.6 mmol/L (3.4-5.1); Salicylate < 1.0 mg/dL (<20); Sodium 134 mmol/L (137-145)
[2024-12-29 17:30] LABS: Free T4, Direct Thyroxine 1.75 ng/dL (0.78-2.19)
[2024-12-29 17:33] LABS: Appearance Urine UA CLEAR; Bilirubin Urine UA NEGATIVE (NEGATIVE); Color Urine UA YELLOW; Glucose Urine UA NEGATIVE (Negative); Ketones Urine UA NEGATIVE (NEGATIVE); Leukocyte Esterase Urine UA TRACE (NEGATIVE); Nitrite Urine UA NEGATIVE (Negative); Occult Blood Urine UA 3+ (Negative); Protein Urine UA TRACE (Negative)
[2024-12-29 17:40] LABS: Amorphous Sediment Urine 1+; Bacteria Urine Few (2-10); Culture Indicated Urine Cult Not Indicated; RBC Urine 10-30/HPF (0-5/HPF); Squamous Epithelial Cell Urine 1-5 /HPF (0-5/HPF); Urine Volume 10mL (spun); WBC Urine 1-5/HPF (0-5/HPF)
[2024-12-29 17:44] LABS: UR Morphine/Opiate cutoff 300 Negative (Negative); Ur Creatinine Normal (Normal); Ur Specific Gravity Normal (Normal); Urine Amphetamines Negative (Negative); Urine Barbiturates Negative (Negative); Urine Benzodiazepines Positive (Negative); Urine Cocaine Negative (Negative); Urine MDMA Negative (Negative); Urine Methamphetamines Negative (Negative); Urine Phencyclidine Negative (Negative); Urine Tetrahydrocannabinol Negative (Negative); Urine pH Normal (Normal)
[2024-12-29 17:44] LABS: Thyroid Stimulating Hormone 4.18 uIU/mL (0.47-4.68)
[2024-12-29 17:45] LABS: Urine Methadone Negative (Negative); Urine Oxycodone Negative (Negative); Urine Tricyclic Antidepressant Negative (Negative)
--- NOTE | 2024-12-29 18:05 | DI.CT.S_ITS ---
PROCEDURE: CT HEAD/BRAIN WO CON INDICATIONS: hallucinations and falls TECHNIQUE: Noncontrast 4.5 mm thick angled axial sections acquired from the foramen magnum to the vertex, with coronal and sagittal reformats. For radiation dose reduction, the following was used: automated exposure control, adjustment of mA and/or kV according to patient size. COMPARISON: [facility], CT, CT HEAD/BRAIN WO CON, 12/25/2024, 19:13. FINDINGS: Image quality: Diagnostic. CSF spaces: Basal cisterns are patent. No extra-axial fluid collections. The ventricles are symmetric in size and shape. Brain: No intracranial bleeds or masses. There is cerebral volume loss for age, with resultant ventricular and sulcal prominence. There are periventricular and deep white matter chronic small vessel ischemic changes. There is intracranial internal carotid artery atherosclerosis. Skull and face: Decreased size of left scalp hematoma with suture material. Calvarium and visualized facial bones appear intact, without suspicious lesions. Sinuses: Visualized sinuses and mastoids are clear. IMPRESSION: No acute intracranial pathology. Dictated by: Quentin Franco M.D. on 12/29/2024 at 18:34 Approved by: Quentin Franco M.D. on 12/29/2024 at 18:38
[2024-12-29 18:47] LABS: Lactate (Lactic Acid) 2.1 mmol/L (0.7-2.1)
--- NOTE | 2024-12-29 18:47 | ED_ITS ---
HPI - Psych <Kira Crow DO - Last Filed: 01/05/25 08:13> General Chief Complaint: Psychiatric Symptoms Stated Complaint: hallucinations, possible alcohol related, UTI Time Seen by Provider: 12/29/24 18:05 Source: patient and family Mode of arrival: Ambulatory History of Present Illness HPI Narrative: Patient is a 59-year-old female history of alcohol use presenting to day with hallucinations. 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 Has been has noticed increased use of alcohol over the last 1 month studying and taking this course has really been stressful. She reports that she drinks short in a she only had 2 glasses today. She recognizes that she would to cut back. She was seen evaluated 4 days ago, she had a trip and fall at that time. reports that she has been falling a lot more she was unsteady on her feet. She seems to be hearing and seeing things that are there. She thinks that it is due to a UTI. Which has happened in the past. She had an alcohol level 270 on her last ED visit. Related Data Previous Rx's Medication Instructions Recorded tolterodine 2 mg capsule,extended 2 mg PO BEDTIME #30 caps 12/08/24 release 24 hr (Detrol LA) amoxicillin 500 mg tablet 500 mg PO TID #1 tab 01/03/25 folic acid 1 mg tablet 1 mg PO DAILY #30 tabs 01/03/25 sulfamethoxazole 800 1 tab PO BID #1 tab 01/03/25 mg-trimethoprim 160 mg tablet thiamine HCl (vitamin B1) 100 mg 100 mg PO DAILY #30 tabs 01/03/25 tablet Allergies Allergy/AdvReac Type Severity Reaction Status Date / Time No Known Drug Allergies Allergy Verified 12/25/24 18:40 Patient History <Kira Crow DO - Last Filed: 01/05/25 08:13> Medical History Abdominal ascites Acute maxillary sinusitis Alcohol abuse Alcohol withdrawal Cirrhosis Portal hypertension Stress incontinence Well adult exam Social History household members: significant other Smoking Status: Never smoker alcohol intake: current Smoking Status: Never smoker alcohol intake frequency: other Alcohol type: wine Exam <Kira Crow DO - Last Filed: 01/05/25 08:13> Initial Vital Signs Initial Vital Signs: Vital Signs Temperature 97.8 F 12/29/24 16:22 Pulse Rate 68 12/29/24 16:22 Respiratory Rate 18 12/29/24 16:22 Blood Pressure 115/61 12/29/24 16:22 Pulse Oximetry 97 12/29/24 16:22 Oxygen Delivery Method Room Air 12/29/24 16:22 GENERAL: Alert 59-year-old and in [no acute] distress. HEENT: Head atraumatic,EOMI, pupils reactive, face symmetric, [moist] mucous membranes CARDIOVASCULAR: Regular rate and rhythm without murmurs, rubs or gallops. RESPIRATORY: Breath sounds equal bilaterally, no wheezes rales or rhonchi. ABDOMEN: Soft, nontender. Normoactive bowel sounds all 4 quadrants. No guarding or rebound. EXTREMITIES: Normal range of motion, no clubbing or edema. Neurovascularly intact NEUROLOGICAL: Alert and oriented x4.Normal gait and speech. Cranial nerves II through XII grossly intact. SKIN: Warm, dry, no laceration, no petechiae, no rashes or lesions. <Kike Arce MD - Last Filed: 12/31/24 07:44> Initial Vital Signs Initial Vital Signs: Vital Signs Temperature 97.8 F 12/29/24 16:22 Pulse Rate 68 12/29/24 16:22 Respiratory Rate 18 12/29/24 16:22 Blood Pressure 115/61 12/29/24 16:22 Pulse Oximetry 97 12/29/24 16:22 Oxygen Delivery Method Room Air 12/29/24 16:22 Course <Kira Crow DO - Last Filed: 01/05/25 08:13> Orders Ordered: Discontinued Medications Acetaminophen (Acetaminophen 325 Mg Tablet) 650 mg PO Q4H PRN PRN Reason: Fever/Mild Pain (1-3) Last Admin: 12/31/24 08:17 Dose: 650 mg Documented By: Admin: 12/30/24 13:40 Dose: 650 mg Documented By: GRETA Al Hydrox/Mg Hydrox/Simethicone (Mag Hydrox/Alum/Simeth 30 Ml Udc) 30 ml PO Q6HR PRN PRN Reason: Dyspepsia Last Admin: 12/30/24 09:22 Dose: 30 ml Documented By: LEO Clonidine HCl (Clonidine 0.1 Mg Tablet) 0.1 mg PO Q4HR PRN PRN Reason: Alcohol Withdrawal Last Admin: 12/31/24 22:37 Dose: 0.1 mg Documented By: Folic Acid (Folic Acid 1 Mg Tablet) 1 mg PO DAILY [facility] Last Admin: 12/30/24 09:25 Dose: 1 mg Documented By: LEO Folic Acid (Folic Acid 1 Mg Tablet) 1 mg PO DAILY [facility] Last Admin: 01/03/25 09:36 Dose: 1 mg Documented By: Admin: 01/02/25 08:14 Dose: 1 mg Documented By: Admin: 01/01/25 09:30 Dose: 1 mg Documented By: Admin: 12/31/24 08:17 Dose: 1 mg Documented By: REMY Haloperidol (Haloperidol 5 Mg Tablet) 5 mg PO Q1HR PRN PRN Reason: Hallucinations Last Admin: 12/31/24 22:37 Dose: 5 mg Documented By: Ceftriaxone Sodium 1,000 mg/ (Sodium Chloride) 100 mls @ 200 mls/hr IV NOW ONE Stop: 12/29/24 19:01 Last Infusion: 12/29/24 20:22 Dose: Infused Documented By: Admin: 12/29/24 19:18 Dose: 200 mls/hr Documented By: SB Sodium Chloride (Normal Saline 0.45%) 1,000 mls @ 100 mls/hr IV CONT [facility] Last Admin: 01/03/25 04:28 Dose: 100 mls/hr Documented By: Infusion: 01/03/25 03:54 Dose: Infused Documented By: Admin: 01/02/25 17:54 Dose: 100 mls/hr Documented By: Infusion: 01/01/25 07:24 Dose: Infused Documented By: Admin: 12/31/24 21:24 Dose: 100 mls/hr Documented By: Infusion: 12/31/24 08:57 Dose: Infused Documented By: Admin: 12/30/24 22:57 Dose: 100 mls/hr Documented By: Infusion: 12/30/24 21:05 Dose: Infused Documented By: Admin: 12/30/24 11:05 Dose: 100 mls/hr Documented By: GRETA Thiamine HCl 500 mg/ Sodium (Chloride) 105 mls @ 420 mls/hr IV Q8H [facility] Stop: 01/04/25 05:14 Last Infusion: 01/03/25 04:57 Dose: Infused Documented By: Admin: 01/03/25 04:42 Dose: 420 mls/hr Documented By: Infusion: 01/02/25 20:47 Dose: Infused Documented By: Admin: 01/02/25 20:27 Dose: 420 mls/hr Documented By: Infusion: 01/02/25 14:03 Dose: Infused Documented By: Admin: 01/02/25 13:26 Dose: 420 mls/hr Documented By: Infusion: 01/02/25 08:15 Dose: Infused Documented By: Admin: 01/02/25 07:38 Dose: 420 mls/hr Documented By: Infusion: 01/01/25 22:02 Dose: Infused Documented By: Admin: 01/01/25 21:47 Dose: 420 mls/hr Documented By: Infusion: 01/01/25 17:50 Dose: Infused Documented By: Admin: 01/01/25 14:26 Dose: 420 mls/hr Documented By: BT Lorazepam (Lorazepam 2 Mg/Ml Inj) 1 mg IV NOW ONE Stop: 12/29/24 19:01 Last Admin: 12/29/24 19:18 Dose: 1 mg Documented By: SB Lorazepam (Lorazepam 1 Mg Tablet) 2 mg PO Q8HR [facility] Last Admin: 01/01/25 14:02 Dose: Not Given Documented By: Admin: 01/01/25 06:49 Dose: Not Given Documented By: Admin: 12/31/24 20:19 Dose: Not Given Documented By: Admin: 12/31/24 14:14 Dose: Not Given Documented By: Admin: 12/31/24 05:48 Dose: Not Given Documented By: Admin: 12/30/24 22:00 Dose: Not Given Documented By: Admin: 12/30/24 16:10 Dose: Not Given Documented By: GRETA Lorazepam (Lorazepam 2 Mg/Ml Inj) 2 mg IV NOW ONE Stop: 12/30/24 09:14 Last Admin: 12/30/24 09:24 Dose: 2 mg Documented By: LEO Lorazepam (Lorazepam 1 Mg Tablet) 0 mg PO CIWAPRN PRN; Protocol PRN Reason: Alcohol Withdrawal Last Admin: 12/31/24 22:40 Dose: 2 mg Documented By: Multivitamins (Multivitamin 1 Tablet) 1 tab PO DAILY [facility] Last Admin: 12/30/24 11:05 Dose: 1 tab Documented By: GRETA Multivitamins (Multivitamin 1 Tablet) 1 tab PO DAILY [facility] Last Admin: 01/03/25 09:35 Dose: 1 tab Documented By: Admin: 01/02/25 08:14 Dose: 1 tab Documented By: Admin: 01/01/25 09:30 Dose: 1 tab Documented By: Admin: 12/31/24 08:17 Dose: 1 tab Documented By: REMY Naloxone HCl (Naloxone 0.4 Mg/Ml Vial) 0.2 mg IV Q2MIN PRN PRN Reason: Opiate Reversal Ondansetron HCl (Ondansetron 4 Mg/2 Ml Inj) 4 mg IV Q8HR PRN PRN Reason: Nausea And Vomiting Pantoprazole Sodium (Pantoprazole Dr 20 Mg Tablet) 20 mg PO 0600 [facility] Last Admin: 01/03/25 06:10 Dose: 20 mg Documented By: Admin: 01/02/25 07:42 Dose: 20 mg Documented By: Admin: 01/01/25 06:49 Dose: Not Given Documented By: Admin: 12/31/24 05:48 Dose: 20 mg Documented By: Admin: 12/30/24 11:05 Dose: 20 mg Documented By: GRETA Phenobarbital (Phenobarbital 65 Mg/Ml Vial) 130 mg IV NOW ONE Stop: 12/29/24 19:01 Last Admin: 12/29/24 19:18 Dose: 130 mg Documented By: RICCARDO Phenobarbital (Phenobarbital 65 Mg/Ml Vial) 130 mg IV NOW ONE Stop: 12/30/24 02:47 Last Admin: 12/30/24 02:59 Dose: 130 mg Documented By: MAO Phenobarbital (Phenobarbital 32.4 Mg Tablet) 64.8 mg PO Q6H [facility] Stop: 01/01/25 21:01 Phenobarbital (Phenobarbital 32.4 Mg Tablet) 32.4 mg PO Q6H [facility] Stop: 01/02/25 21:01 Phenobarbital (Phenobarbital 32.4 Mg Tablet) 129.6 mg PO NOW ONE Stop: 01/01/25 09:31 Last Admin: 01/01/25 10:54 Dose: Not Given Documented By: REMY Phenobarbital (Phenobarbital 65 Mg/Ml Vial) 65 mg IV Q6H [facility] Stop: 01/01/25 23:01 Last Admin: 01/02/25 01:49 Dose: Not Given Documented By: Admin: 01/01/25 17:50 Dose: 65 mg Documented By: BT Phenobarbital (Phenobarbital 65 Mg/Ml Vial) 32.5 mg IV Q6H [facility] Stop: 01/02/25 23:01 Last Admin: 01/02/25 22:40 Dose: 32.5 mg Documented By: Admin: 01/02/25 17:29 Dose: 32.5 mg Documented By: Admin: 01/02/25 12:06 Dose: 32.5 mg Documented By: Admin: 01/02/25 07:38 Dose: 32.5 mg Documented By: BT Phenobarbital (Phenobarbital 65 Mg/Ml Vial) 130 mg IV NOW ONE Stop: 01/01/25 12:01 Last Admin: 01/01/25 11:55 Dose: 130 mg Documented By: REMY Sodium Chloride (Sodium Chloride 0.9% Flush) 10 ml IV PRN PRN PRN Reason: Flush Sodium Chloride (Sodium Chloride 0.9% Flush) 10 ml IV BID [facility] Last Admin: 01/03/25 09:00 Dose: 10 ml Documented By: Admin: 01/02/25 20:28 Dose: 10 ml Documented By: Admin: 01/02/25 08:14 Dose: 10 ml Documented By: Admin: 01/01/25 21:51 Dose: 10 ml Documented By: Admin: 01/01/25 09:30 Dose: 10 ml Documented By: Admin: 12/31/24 20:19 Dose: 10 ml Documented By: Admin: 12/31/24 08:22 Dose: Not Given Documented By: REMY Thiamine HCl (Thiamine 100 Mg Tablet) 100 mg PO DAILY [facility] Stop: 01/02/25 09:01 Last Admin: 12/30/24 09:25 Dose: 100 mg Documented By: LEO Thiamine HCl (Thiamine 100 Mg Tablet) 100 mg PO DAILY [facility] Stop: 01/03/25 09:01 Last Admin: 01/01/25 09:30 Dose: 100 mg Documented By: Admin: 12/31/24 08:17 Dose: 100 mg Documented By: BT Vital Signs Vital signs: Vital Signs - 8 hr 12/30/24 01:00 12/30/24 01:00 12/30/24 01:20 Pulse Rate 77 70 Respiratory Rate 14 16 Blood Pressure 109/53 L Pulse Oximetry 95 95 Oxygen Delivery Method Room Air 12/30/24 01:30 12/30/24 01:40 12/30/24 01:40 Pulse Rate 73 72 Respiratory Rate 15 15 Blood Pressure 97/51 L Pulse Oximetry 95 95 Oxygen Delivery Method 12/30/24 02:00 12/30/24 02:00 12/30/24 02:30 Pulse Rate 74 75 Respiratory Rate 12 27 H Blood Pressure 98/50 L Pulse Oximetry 95 96 Oxygen Delivery Method 12/30/24 02:56 12/30/24 02:56 12/30/24 03:00 Pulse Rate 97 H Respiratory Rate 13 Blood Pressure 111/51 L 126/59 L Pulse Oximetry 96 Oxygen Delivery Method 12/30/24 03:00 12/30/24 03:30 12/30/24 03:45 Pulse Rate 106 H 86 91 H Respiratory Rate 18 13 18 Blood Pressure Pulse Oximetry 96 94 97 Oxygen Delivery Method Room Air 12/30/24 03:46 12/30/24 03:46 12/30/24 04:00 Pulse Rate 91 H Respiratory Rate 19 Blood Pressure 113/58 L 109/54 L Pulse Oximetry 97 Oxygen Delivery Method Room Air 12/30/24 04:00 12/30/24 04:30 12/30/24 05:00 Pulse Rate 93 H 80 Respiratory Rate 14 14 Blood Pressure 97/53 L Pulse Oximetry 94 94 Oxygen Delivery Method Room Air Room Air 12/30/24 05:00 12/30/24 05:30 12/30/24 06:00 Pulse Rate 94 H 85 Respiratory Rate 20 16 Blood Pressure 97/61 Pulse Oximetry 93 94 Oxygen Delivery Method Room Air 12/30/24 06:00 12/30/24 06:30 12/30/24 07:00 Pulse Rate 99 H 83 83 Respiratory Rate 17 16 14 Blood Pressure Pulse Oximetry 96 93 94 Oxygen Delivery Method 12/30/24 07:00 12/30/24 07:30 12/30/24 08:00 Pulse Rate 80 89 Respiratory Rate 15 17 Blood Pressure 124/58 L Pulse Oximetry 94 96 Oxygen Delivery Method 12/30/24 08:00 12/30/24 08:30 Pulse Rate 80 Respiratory Rate 17 Blood Pressure 123/57 L Pulse Oximetry 97 Oxygen Delivery Method <Kike Arce MD - Last Filed: 12/31/24 07:44> Orders Ordered: Discontinued Medications Acetaminophen (Acetaminophen 325 Mg Tablet) 650 mg PO Q4H PRN PRN Reason: Fever/Mild Pain (1-3) Last Admin: 12/31/24 08:17 Dose: 650 mg Documented By: Admin: 12/30/24 13:40 Dose: 650 mg Documented By: GRETA Al Hydrox/Mg Hydrox/Simethicone (Mag Hydrox/Alum/Simeth 30 Ml Udc) 30 ml PO Q6HR PRN PRN Reason: Dyspepsia Last Admin: 12/30/24 09:22 Dose: 30 ml Documented By: LEO Clonidine HCl (Clonidine 0.1 Mg Tablet) 0.1 mg PO Q4HR PRN PRN Reason: Alcohol Withdrawal Last Admin: 12/31/24 22:37 Dose: 0.1 mg Documented By: Folic Acid (Folic Acid 1 Mg Tablet) 1 mg PO DAILY [facility] Last Admin: 12/30/24 09:25 Dose: 1 mg Documented By: LEO Folic Acid (Folic Acid 1 Mg Tablet) 1 mg PO DAILY [facility] Last Admin: 01/03/25 09:36 Dose: 1 mg Documented By: Admin: 01/02/25 08:14 Dose: 1 mg Documented By: Admin: 01/01/25 09:30 Dose: 1 mg Documented By: Admin: 12/31/24 08:17 Dose: 1 mg Documented By: REMY Haloperidol (Haloperidol 5 Mg Tablet) 5 mg PO Q1HR PRN PRN Reason: Hallucinations Last Admin: 12/31/24 22:37 Dose: 5 mg Documented By: MS Ceftriaxone Sodium 1,000 mg/ (Sodium Chloride) 100 mls @ 200 mls/hr IV NOW ONE Stop: 12/29/24 19:01 Last Infusion: 12/29/24 20:22 Dose: Infused Documented By: Admin: 12/29/24 19:18 Dose: 200 mls/hr Documented By: SB Sodium Chloride (Normal Saline 0.45%) 1,000 mls @ 100 mls/hr IV CONT [facility] Last Admin: 01/03/25 04:28 Dose: 100 mls/hr Documented By: Infusion: 01/03/25 03:54 Dose: Infused Documented By: Admin: 01/02/25 17:54 Dose: 100 mls/hr Documented By: Infusion: 01/01/25 07:24 Dose: Infused Documented By: Admin: 12/31/24 21:24 Dose: 100 mls/hr Documented By: Infusion: 12/31/24 08:57 Dose: Infused Documented By: Admin: 12/30/24 22:57 Dose: 100 mls/hr Documented By: Infusion: 12/30/24 21:05 Dose: Infused Documented By: Admin: 12/30/24 11:05 Dose: 100 mls/hr Documented By: GRETA Thiamine HCl 500 mg/ Sodium (Chloride) 105 mls @ 420 mls/hr IV Q8H [facility] Stop: 01/04/25 05:14 Last Infusion: 01/03/25 04:57 Dose: Infused Documented By: Admin: 01/03/25 04:42 Dose: 420 mls/hr Documented By: Infusion: 01/02/25 20:47 Dose: Infused Documented By: Admin: 01/02/25 20:27 Dose: 420 mls/hr Documented By: Infusion: 01/02/25 14:03 Dose: Infused Documented By: Admin: 01/02/25 13:26 Dose: 420 mls/hr Documented By: Infusion: 01/02/25 08:15 Dose: Infused Documented By: Admin: 01/02/25 07:38 Dose: 420 mls/hr Documented By: Infusion: 01/01/25 22:02 Dose: Infused Documented By: Admin: 01/01/25 21:47 Dose: 420 mls/hr Documented By: Infusion: 01/01/25 17:50 Dose: Infused Documented By: Admin: 01/01/25 14:26 Dose: 420 mls/hr Documented By: BT Lorazepam (Lorazepam 2 Mg/Ml Inj) 1 mg IV NOW ONE Stop: 12/29/24 19:01 Last Admin: 12/29/24 19:18 Dose: 1 mg Documented By: SB Lorazepam (Lorazepam 1 Mg Tablet) 2 mg PO Q8HR [facility] Last Admin: 01/01/25 14:02 Dose: Not Given Documented By: Admin: 01/01/25 06:49 Dose: Not Given Documented By: Admin: 12/31/24 20:19 Dose: Not Given Documented By: Admin: 12/31/24 14:14 Dose: Not Given Documented By: Admin: 12/31/24 05:48 Dose: Not Given Documented By: Admin: 12/30/24 22:00 Dose: Not Given Documented By: Admin: 12/30/24 16:10 Dose: Not Given Documented By: GRETA Lorazepam (Lorazepam 2 Mg/Ml Inj) 2 mg IV NOW ONE Stop: 12/30/24 09:14 Last Admin: 12/30/24 09:24 Dose: 2 mg Documented By: LEO Lorazepam (Lorazepam 1 Mg Tablet) 0 mg PO CIWAPRN PRN; Protocol PRN Reason: Alcohol Withdrawal Last Admin: 12/31/24 22:40 Dose: 2 mg Documented By: Multivitamins (Multivitamin 1 Tablet) 1 tab PO DAILY [facility] Last Admin: 12/30/24 11:05 Dose: 1 tab Documented By: GRETA Multivitamins (Multivitamin 1 Tablet) 1 tab PO DAILY [facility] Last Admin: 01/03/25 09:35 Dose: 1 tab Documented By: Admin: 01/02/25 08:14 Dose: 1 tab Documented By: Admin: 01/01/25 09:30 Dose: 1 tab Documented By: Admin: 12/31/24 08:17 Dose: 1 tab Documented By: REMY Naloxone HCl (Naloxone 0.4 Mg/Ml Vial) 0.2 mg IV Q2MIN PRN PRN Reason: Opiate Reversal Ondansetron HCl (Ondansetron 4 Mg/2 Ml Inj) 4 mg IV Q8HR PRN PRN Reason: Nausea And Vomiting Pantoprazole Sodium (Pantoprazole Dr 20 Mg Tablet) 20 mg PO 0600 [facility] Last Admin: 01/03/25 06:10 Dose: 20 mg Documented By: Admin: 01/02/25 07:42 Dose: 20 mg Documented By: Admin: 01/01/25 06:49 Dose: Not Given Documented By: Admin: 12/31/24 05:48 Dose: 20 mg Documented By: Admin: 12/30/24 11:05 Dose: 20 mg Documented By: GRETA Phenobarbital (Phenobarbital 65 Mg/Ml Vial) 130 mg IV NOW ONE Stop: 12/29/24 19:01 Last Admin: 12/29/24 19:18 Dose: 130 mg Documented By: RICCARDO Phenobarbital (Phenobarbital 65 Mg/Ml Vial) 130 mg IV NOW ONE Stop: 12/30/24 02:47 Last Admin: 12/30/24 02:59 Dose: 130 mg Documented By: MAO Phenobarbital (Phenobarbital 32.4 Mg Tablet) 64.8 mg PO Q6H [facility] Stop: 01/01/25 21:01 Phenobarbital (Phenobarbital 32.4 Mg Tablet) 32.4 mg PO Q6H [facility] Stop: 01/02/25 21:01 Phenobarbital (Phenobarbital 32.4 Mg Tablet) 129.6 mg PO NOW ONE Stop: 01/01/25 09:31 Last Admin: 01/01/25 10:54 Dose: Not Given Documented By: BT Phenobarbital (Phenobarbital 65 Mg/Ml Vial) 65 mg IV Q6H [facility] Stop: 01/01/25 23:01 Last Admin: 01/02/25 01:49 Dose: Not Given Documented By: Admin: 01/01/25 17:50 Dose: 65 mg Documented By: REMY Phenobarbital (Phenobarbital 65 Mg/Ml Vial) 32.5 mg IV Q6H [facility] Stop: 01/02/25 23:01 Last Admin: 01/02/25 22:40 Dose: 32.5 mg Documented By: Admin: 01/02/25 17:29 Dose: 32.5 mg Documented By: Admin: 01/02/25 12:06 Dose: 32.5 mg Documented By: Admin: 01/02/25 07:38 Dose: 32.5 mg Documented By: BT Phenobarbital (Phenobarbital 65 Mg/Ml Vial) 130 mg IV NOW ONE Stop: 01/01/25 12:01 Last Admin: 01/01/25 11:55 Dose: 130 mg Documented By: REMY Sodium Chloride (Sodium Chloride 0.9% Flush) 10 ml IV PRN PRN PRN Reason: Flush Sodium Chloride (Sodium Chloride 0.9% Flush) 10 ml IV BID [facility] Last Admin: 01/03/25 09:00 Dose: 10 ml Documented By: Admin: 01/02/25 20:28 Dose: 10 ml Documented By: Admin: 01/02/25 08:14 Dose: 10 ml Documented By: Admin: 01/01/25 21:51 Dose: 10 ml Documented By: Admin: 01/01/25 09:30 Dose: 10 ml Documented By: Admin: 12/31/24 20:19 Dose: 10 ml Documented By: Admin: 12/31/24 08:22 Dose: Not Given Documented By: REMY Thiamine HCl (Thiamine 100 Mg Tablet) 100 mg PO DAILY [facility] Stop: 01/02/25 09:01 Last Admin: 12/30/24 09:25 Dose: 100 mg Documented By: LEO Thiamine HCl (Thiamine 100 Mg Tablet) 100 mg PO DAILY [facility] Stop: 01/03/25 09:01 Last Admin: 01/01/25 09:30 Dose: 100 mg Documented By: Admin: 12/31/24 08:17 Dose: 100 mg Documented By: REMY Vital Signs Vital signs: Vital Signs - 8 hr 12/30/24 01:00 12/30/24 01:00 12/30/24 01:20 Pulse Rate 77 70 Respiratory Rate 14 16 Blood Pressure 109/53 L Pulse Oximetry 95 95 Oxygen Delivery Method Room Air 12/30/24 01:30 12/30/24 01:40 12/30/24 01:40 Pulse Rate 73 72 Respiratory Rate 15 15 Blood Pressure 97/51 L Pulse Oximetry 95 95 Oxygen Delivery Method 12/30/24 02:00 12/30/24 02:00 12/30/24 02:30 Pulse Rate 74 75 Respiratory Rate 12 27 H Blood Pressure 98/50 L Pulse Oximetry 95 96 Oxygen Delivery Method 12/30/24 02:56 12/30/24 02:56 12/30/24 03:00 Pulse Rate 97 H Respiratory Rate 13 Blood Pressure 111/51 L 126/59 L Pulse Oximetry 96 Oxygen Delivery Method 12/30/24 03:00 12/30/24 03:30 12/30/24 03:45 Pulse Rate 106 H 86 91 H Respiratory Rate 18 13 18 Blood Pressure Pulse Oximetry 96 94 97 Oxygen Delivery Method Room Air 12/30/24 03:46 12/30/24 03:46 12/30/24 04:00 Pulse Rate 91 H Respiratory Rate 19 Blood Pressure 113/58 L 109/54 L Pulse Oximetry 97 Oxygen Delivery Method Room Air 12/30/24 04:00 12/30/24 04:30 12/30/24 05:00 Pulse Rate 93 H 80 Respiratory Rate 14 14 Blood Pressure 97/53 L Pulse Oximetry 94 94 Oxygen Delivery Method Room Air Room Air 12/30/24 05:00 12/30/24 05:30 12/30/24 06:00 Pulse Rate 94 H 85 Respiratory Rate 20 16 Blood Pressure 97/61 Pulse Oximetry 93 94 Oxygen Delivery Method Room Air 12/30/24 06:00 12/30/24 06:30 12/30/24 07:00 Pulse Rate 99 H 83 83 Respiratory Rate 17 16 14 Blood Pressure Pulse Oximetry 96 93 94 Oxygen Delivery Method 12/30/24 07:00 12/30/24 07:30 12/30/24 08:00 Pulse Rate 80 89 Respiratory Rate 15 17 Blood Pressure 124/58 L Pulse Oximetry 94 96 Oxygen Delivery Method 12/30/24 08:00 12/30/24 08:30 Pulse Rate 80 Respiratory Rate 17 Blood Pressure 123/57 L Pulse Oximetry 97 Oxygen Delivery Method MDM - Psych <Kira Crow, - Last Filed: 01/05/25 08:13> Lab Data 12/31/24 05:00 12/29/24 16:47 Labs: Lab Results 12/29/24 12/29/24 12/29/24 Range/Units 16:47 17:20 17:20 WBC 5.5 (4.5-11.0) X10^3/uL RBC 3.45 L (4.0-5.2) X10^6/uL Hgb 11.2 L (12.0-16.0) g/dL Hct 33.3 L (36-46) % MCV 96.7 (80-100) fL MCH 32.4 (26-34) PG MCHC 33.6 (30-36) % RDW 16.9 H (11.6-14.8) % Plt Count 73 L (150-400) X10^3/uL Neut % (Auto) 56.5 (50-75) % Lymph % (Auto) 20.6 L (25-40) % [place] % (Auto) 20.0 H (3-14) % Eos % (Auto) 1.6 L (2-4) % Baso % (Auto) 1.3 (0-2) % Neut # (Auto) 3100 (2938-5190) /uL Lymph # (Auto) 1100 (1872-2417) /uL [place] # (Auto) 1100 H (0-900) /uL Eos # (Auto) 100 (0-450) /uL Baso # (Auto) 100 (0-100) /uL Sodium 134 L (137-145) mmol/L Potassium 3.6 (3.4-5.1) mmol/L Chloride 101 (98-107) mmol/L Carbon Dioxide 21 L (22-32) mmol/L BUN 21 H (7-17) mg/dL Creatinine 1.37 H (0.52-1.04) mg/dL Estimated GFR 45 L (>60) mL/min BUN/Creatinine Ratio 15.3 (6-22) Glucose 92 (70-100) mg/dL Lactate (0.7-2.1) mmol/L Calcium 8.8 (8.4-10.2) mg/dL Total Bilirubin 3.1 H (0.2-1.3) mg/dL AST 97 H (14-36) IU/L ALT 27 (<35) IU/L Alkaline Phosphatase 103 (38-126) U/L Total Protein 7.0 (6.3-8.2) g/dL Albumin 3.4 L (3.5-5.0) g/dL Globulin 3.6 (1.7-4.1) g/dL Albumin/Globulin Ratio 0.9 L (1.0-2.8) TSH 4.18 (0.47-4.68) uIU/mL Free T4 1.75 (0.78-2.19) ng/dL Urine Color Yellow Urine Appearance Clear Urine pH 6.0 Normal (4.5-8.0) Ur Specific [place] 1.020 (1.000-1.035) Urine Protein Trace H (Negative) Urine Glucose (UA) Negative (Negative) g/dL Urine Ketones Negative (NEGATIVE) Urine Occult Blood 3+ H (Negative) Urine Nitrate Negative (Negative) Urine Bilirubin Negative (NEGATIVE) Urine Urobilinogen 1.0 (0.2) E.U./dL Ur Leukocyte Esterase Trace H (NEGATIVE) Urine RBC 10-30/hpf H (0-5/HPF) Urine WBC 1-5/hpf (0-5/HPF) Ur Squamous Epith Cells 1-5 /hpf (0-5/HPF) Amorphous Sediment 1+ Urine Bacteria Few (2-10) H (None) Ur Culture Indicated? Cult not indicated Vol Urine Centrifuged 10ml (spun) Salicylates < 1.0 (<20) mg/dL U Opiates 300ng/mL cut Negative (Negative) Ur Oxycodone Screen Negative (Negative) Urine Methadone Screen Negative (Negative) Acetaminophen < 10 (10-30) ug/mL Ur Barbiturates Screen Negative (Negative) U Tricyclic Antidepress Negative (Negative) Ur Phencyclidine Scrn Negative (Negative) Ur Amphetamines Screen Negative (Negative) U Methamphetamines Scrn Negative (Negative) Ur MDMA Scrn (Ecstasy) Negative (Negative) U Benzodiazepines Scrn Positive H (Negative) Urine Cocaine Screen Negative (Negative) U Marijuana (THC) Screen Negative (Negative) Urine Specific [place] Normal (Normal) Ethyl Alcohol 79 H ( - 10) mg/dL Ur Creatinine Normal (Normal) 12/29/24 12/29/24 Range/Units 18:28 20:18 WBC (4.5-11.0) X10^3/uL RBC (4.0-5.2) X10^6/uL Hgb (12.0-16.0) g/dL Hct (36-46) % MCV (80-100) fL MCH (26-34) PG MCHC (30-36) % RDW (11.6-14.8) % Plt Count (150-400) X10^3/uL Neut % (Auto) (50-75) % Lymph % (Auto) (25-40) % [place] % (Auto) (3-14) % Eos % (Auto) (2-4) % Baso % (Auto) (0-2) % Neut # (Auto) (8904-1716) /uL Lymph # (Auto) (3931-5779) /uL [place] # (Auto) (0-900) /uL Eos # (Auto) (0-450) /uL Baso # (Auto) (0-100) /uL Sodium (137-145) mmol/L Potassium (3.4-5.1) mmol/L Chloride (98-107) mmol/L Carbon Dioxide (22-32) mmol/L BUN (7-17) mg/dL Creatinine (0.52-1.04) mg/dL Estimated GFR (>60) mL/min BUN/Creatinine Ratio (6-22) Glucose (70-100) mg/dL Lactate 2.1 1.4 (0.7-2.1) mmol/L Calcium (8.4-10.2) mg/dL Total Bilirubin (0.2-1.3) mg/dL AST (14-36) IU/L ALT (<35) IU/L Alkaline Phosphatase (38-126) U/L Total Protein (6.3-8.2) g/dL Albumin (3.5-5.0) g/dL Globulin (1.7-4.1) g/dL Albumin/Globulin Ratio (1.0-2.8) TSH (0.47-4.68) uIU/mL Free T4 (0.78-2.19) ng/dL Urine Color Urine Appearance Urine pH (4.5-8.0) Ur Specific [place] (1.000-1.035) Urine Protein (Negative) Urine Glucose (UA) (Negative) g/dL Urine Ketones (NEGATIVE) Urine Occult Blood (Negative) Urine Nitrate (Negative) Urine Bilirubin (NEGATIVE) Urine Urobilinogen (0.2) E.U./dL Ur Leukocyte Esterase (NEGATIVE) Urine RBC (0-5/HPF) Urine WBC (0-5/HPF) Ur Squamous Epith Cells (0-5/HPF) Amorphous Sediment Urine Bacteria (None) Ur Culture Indicated? Vol Urine Centrifuged Salicylates (<20) mg/dL U Opiates 300ng/mL cut (Negative) Ur Oxycodone Screen (Negative) Urine Methadone Screen (Negative) Acetaminophen (10-30) ug/mL Ur Barbiturates Screen (Negative) U Tricyclic Antidepress (Negative) Ur Phencyclidine Scrn (Negative) Ur Amphetamines Screen (Negative) U Methamphetamines Scrn (Negative) Ur MDMA Scrn (Ecstasy) (Negative) U Benzodiazepines Scrn (Negative) Urine Cocaine Screen (Negative) U Marijuana (THC) Screen (Negative) Urine Specific [place] (Normal) Ethyl Alcohol ( - 10) mg/dL Ur Creatinine (Normal) Imaging Data CT scan - head: Radiologist's Impression: PROCEDURE: CT HEAD/BRAIN WO CON INDICATIONS: hallucinations and falls TECHNIQUE: Noncontrast 4.5 mm thick angled axial sections acquired from the foramen magnum to the vertex, with coronal and sagittal reformats. For radiation dose reduction, the following was used: automated exposure control, adjustment of mA and/or kV according to patient size. COMPARISON: [facility], CT, CT HEAD/BRAIN WO CON, 12/25/2024, 19:13. FINDINGS: Image quality: Diagnostic. CSF spaces: Basal cisterns are patent. No extra-axial fluid collections. The ventricles are symmetric in size and shape. Brain: No intracranial bleeds or masses. There is cerebral volume loss for age, with resultant ventricular and sulcal prominence. There are periventricular and deep white matter chronic small vessel ischemic changes. There is intracranial internal carotid artery atherosclerosis. Skull and face: Decreased size of left scalp hematoma with suture material. Calvarium and visualized facial bones appear intact, without suspicious lesions. Sinuses: Visualized sinuses and mastoids are clear. IMPRESSION: No acute intracranial pathology. Dictated by: Quentin Franco M.D. on 12/29/2024 at 18:34 MDM Narrative Medical decision making narrative: MDM CC: Hallucinations Complicating co-morbidities: Alcohol abuse Data collected from: and patient Medical records reviewed: Previous ED visits Differential considered: Sepsis UTI alcohol withdrawal Exam documented above, pertinent findings include: Patient is a awake alert answering questions but does have obvious tremor no significant jaundice abdomen is flat and nontender no lower extremity edema Lab Test results independently reviewed as above. Pertinent findings: WBC 5.5 hemoglobin 11.2 hematocrit 33.3 platelets 73 previously 50 ft Sodium 134 potassium 3.6 chloride 101 carbon dioxide 21 BUN 21 creatinine 1.37 previously 1.0 Lactate 2.1 repeat 1.4 Bilirubin is 3.1, previously 2.4 AST 97, ALT 27 Urine drug screen positive for benzos Alcohol 79 previously 270, Tylenol negative salicylate negative Independently reviewed EKG as above Imaging studies independently reviewed: CT head no acute intracranial process Consultations: [ ] Treatments: [ ] Re-evaluations: [ ] Discussion: Patient 59-year-old female presenting today with hallucinations. She does have some obvious tremors. She was given phenobarb and Ativan which seems to help her sleep. She is having some tremors. No sign of severe sepsis she does have elevated bilirubin liver enzymes consistent with an alcoholic hepatitis. She was nontender no nausea or vomiting. Alcohol level is ND which is lower than what it was previously. Discussion with patient about detox. She initially wanted detox and was willing to go. After discussion with centers they are concerned with her increase number of falls and may not be a good candidate for outpatient detox. Patient is unclear if she wants to stop drinking at this time Patient was sitting up eating some food she was shaking reports that she has shakes when she does not eat however I suspect this is more from alcohol withdrawal and she was having tremors. She was given another dose phenobarbital. Before medication she ambulated to the restroom she did require some help. <Kike Arce MD - Last Filed: 12/31/24 07:44> Lab Data Labs: Lab Results 12/29/24 12/29/24 12/29/24 Range/Units 16:47 17:20 17:20 WBC 5.5 (4.5-11.0) X10^3/uL RBC 3.45 L (4.0-5.2) X10^6/uL Hgb 11.2 L (12.0-16.0) g/dL Hct 33.3 L (36-46) % MCV 96.7 (80-100) fL MCH 32.4 (26-34) PG MCHC 33.6 (30-36) % RDW 16.9 H (11.6-14.8) % Plt Count 73 L (150-400) X10^3/uL Neut % (Auto) 56.5 (50-75) % Lymph % (Auto) 20.6 L (25-40) % Swift % (Auto) 20.0 H (3-14) % Eos % (Auto) 1.6 L (2-4) % Baso % (Auto) 1.3 (0-2) % Neut # (Auto) 3100 (3273-3489) /uL Lymph # (Auto) 1100 (3866-1873) /uL [place] # (Auto) 1100 H (0-900) /uL Eos # (Auto) 100 (0-450) /uL Baso # (Auto) 100 (0-100) /uL Sodium 134 L (137-145) mmol/L Potassium 3.6 (3.4-5.1) mmol/L Chloride 101 (98-107) mmol/L Carbon Dioxide 21 L (22-32) mmol/L BUN 21 H (7-17) mg/dL Creatinine 1.37 H (0.52-1.04) mg/dL Estimated GFR 45 L (>60) mL/min BUN/Creatinine Ratio 15.3 (6-22) Glucose 92 (70-100) mg/dL Lactate (0.7-2.1) mmol/L Calcium 8.8 (8.4-10.2) mg/dL Total Bilirubin 3.1 H (0.2-1.3) mg/dL AST 97 H (14-36) IU/L ALT 27 (<35) IU/L Alkaline Phosphatase 103 (38-126) U/L Total Protein 7.0 (6.3-8.2) g/dL Albumin 3.4 L (3.5-5.0) g/dL Globulin 3.6 (1.7-4.1) g/dL Albumin/Globulin Ratio 0.9 L (1.0-2.8) TSH 4.18 (0.47-4.68) uIU/mL Free T4 1.75 (0.78-2.19) ng/dL Urine Color Yellow Urine Appearance Clear Urine pH 6.0 Normal (4.5-8.0) Ur Specific [place] 1.020 (1.000-1.035) Urine Protein Trace H (Negative) Urine Glucose (UA) Negative (Negative) g/dL Urine Ketones Negative (NEGATIVE) Urine Occult Blood 3+ H (Negative) Urine Nitrate Negative (Negative) Urine Bilirubin Negative (NEGATIVE) Urine Urobilinogen 1.0 (0.2) E.U./dL Ur Leukocyte Esterase Trace H (NEGATIVE) Urine RBC 10-30/hpf H (0-5/HPF) Urine WBC 1-5/hpf (0-5/HPF) Ur Squamous Epith Cells 1-5 /hpf (0-5/HPF) Amorphous Sediment 1+ Urine Bacteria Few (2-10) H (None) Ur Culture Indicated? Cult not indicated Vol Urine Centrifuged 10ml (spun) Salicylates < 1.0 (<20) mg/dL U Opiates 300ng/mL cut Negative (Negative) Ur Oxycodone Screen Negative (Negative) Urine Methadone Screen Negative (Negative) Acetaminophen < 10 (10-30) ug/mL Ur Barbiturates Screen Negative (Negative) U Tricyclic Antidepress Negative (Negative) Ur Phencyclidine Scrn Negative (Negative) Ur Amphetamines Screen Negative (Negative) U Methamphetamines Scrn Negative (Negative) Ur MDMA Scrn (Ecstasy) Negative (Negative) U Benzodiazepines Scrn Positive H (Negative) Urine Cocaine Screen Negative (Negative) U Marijuana (THC) Screen Negative (Negative) Urine Specific [place] Normal (Normal) Ethyl Alcohol 79 H ( - 10) mg/dL Ur Creatinine Normal (Normal) 12/29/24 12/29/24 Range/Units 18:28 20:18 WBC (4.5-11.0) X10^3/uL RBC (4.0-5.2) X10^6/uL Hgb (12.0-16.0) g/dL Hct (36-46) % MCV (80-100) fL MCH (26-34) PG MCHC (30-36) % RDW (11.6-14.8) % Plt Count (150-400) X10^3/uL Neut % (Auto) (50-75) % Lymph % (Auto) (25-40) % Swift % (Auto) (3-14) % Eos % (Auto) (2-4) % Baso % (Auto) (0-2) % Neut # (Auto) (3522-0272) /uL Lymph # (Auto) (2003-5367) /uL [place] # (Auto) (0-900) /uL Eos # (Auto) (0-450) /uL Baso # (Auto) (0-100) /uL Sodium (137-145) mmol/L Potassium (3.4-5.1) mmol/L Chloride (98-107) mmol/L Carbon Dioxide (22-32) mmol/L BUN (7-17) mg/dL Creatinine (0.52-1.04) mg/dL Estimated GFR (>60) mL/min BUN/Creatinine Ratio (6-22) Glucose (70-100) mg/dL Lactate 2.1 1.4 (0.7-2.1) mmol/L Calcium (8.4-10.2) mg/dL Total Bilirubin (0.2-1.3) mg/dL AST (14-36) IU/L ALT (<35) IU/L Alkaline Phosphatase (38-126) U/L Total Protein (6.3-8.2) g/dL Albumin (3.5-5.0) g/dL Globulin (1.7-4.1) g/dL Albumin/Globulin Ratio (1.0-2.8) TSH (0.47-4.68) uIU/mL Free T4 (0.78-2.19) ng/dL Urine Color Urine Appearance Urine pH (4.5-8.0) Ur Specific [place] (1.000-1.035) Urine Protein (Negative) Urine Glucose (UA) (Negative) g/dL Urine Ketones (NEGATIVE) Urine Occult Blood (Negative) Urine Nitrate (Negative) Urine Bilirubin (NEGATIVE) Urine Urobilinogen (0.2) E.U./dL Ur Leukocyte Esterase (NEGATIVE) Urine RBC (0-5/HPF) Urine WBC (0-5/HPF) Ur Squamous Epith Cells (0-5/HPF) Amorphous Sediment Urine Bacteria (None) Ur Culture Indicated? Vol Urine Centrifuged Salicylates (<20) mg/dL U Opiates 300ng/mL cut (Negative) Ur Oxycodone Screen (Negative) Urine Methadone Screen (Negative) Acetaminophen (10-30) ug/mL Ur Barbiturates Screen (Negative) U Tricyclic Antidepress (Negative) Ur Phencyclidine Scrn (Negative) Ur Amphetamines Screen (Negative) U Methamphetamines Scrn (Negative) Ur MDMA Scrn (Ecstasy) (Negative) U Benzodiazepines Scrn (Negative) Urine Cocaine Screen (Negative) U Marijuana (THC) Screen (Negative) Urine Specific [place] (Normal) Ethyl Alcohol ( - 10) mg/dL Ur Creatinine (Normal) MDM Narrative Medical decision making narrative: MDM CC: Hallucinations Complicating co-morbidities: Alcohol abuse Data collected from: and patient Medical records reviewed: Previous ED visits Differential considered: Sepsis UTI alcohol withdrawal Exam documented above, pertinent findings include: Patient is a awake alert answering questions but does have obvious tremor no significant jaundice abdomen is flat and nontender no lower extremity edema Lab Test results independently reviewed as above. Pertinent findings: WBC 5.5 hemoglobin 11.2 hematocrit 33.3 platelets 73 previously 50 ft Sodium 134 potassium 3.6 chloride 101 carbon dioxide 21 BUN 21 creatinine 1.37 previously 1.0 Lactate 2.1 repeat 1.4 Bilirubin is 3.1, previously 2.4 AST 97, ALT 27 Urine drug screen positive for benzos Alcohol 79 previously 270, Tylenol negative salicylate negative Independently reviewed EKG as above Imaging studies independently reviewed: CT head no acute intracranial process Consultations: Spoke with hospitalist, will admit Treatments: phenobarbital Ativan Re-evaluations: See below Discussion: Patient 59-year-old female presenting today with hallucinations. She does have some obvious tremors. She was given phenobarb and Ativan which seems to help her sleep. She is having some tremors. No sign of severe sepsis she does have elevated bilirubin liver enzymes consistent with an alcoholic hepatitis. She was nontender no nausea or vomiting. Alcohol level is ND which is lower than what it was previously. Discussion with patient about detox. She initially wanted detox and was willing to go. After discussion with centers they are concerned with her increase number of falls and may not be a good candidate for outpatient detox. Patient is unclear if she wants to stop drinking at this time Patient was sitting up eating some food she was shaking reports that she has shakes when she does not eat however I suspect this is more from alcohol withdrawal and she was having tremors. She was given another dose phenobarbital. Before medication she ambulated to the restroom she did require some help. December 30, 2024 at 7:00 a.m.. Yazmin: sign out from Dr Crow , patient was given phenobarbital and Ativan, however is high fall risk. Considered admission for possible withdrawals however patient and will need to review with disposition and their desires for admission or discharge home. 7:30 a.m.. Patient resting comfortably. I did awake her and she agrees at this time to wait for for treatment plan. 8:17 a.m.. Spoke with patient and . They both agree for admission for alcohol withdrawal. Patient is not stable for outpatient detox at this time. Patient has had multiple visits in the past 1 week for alcohol-related visits. CIWA score of 0. No auditory or visual hallucinations. 8:30 a.m.. Spoke with hospitalist, dr khan, will admit pt. Currently patient awake alert oriented x4. No hallucinations. CIWA score is 0. Discharge Plan Departure Patient Disposition: Admitted as Observation Clinical Impression: Alcohol withdrawal Qualifiers: Complication of substance-induced condition: with perceptual disturbance Q ualified Code(s): F10.932 - Alcohol use, unspecified with withdrawal with perceptual disturbance UTI (urinary tract infection) Qualifiers: Urinary tract infection type: site unspecified Hematuria presence: with hematuria Qualified Code(s): N39.0 - Urinary tract infection, site not specified Admit Date/Time: 12/30/24 08:37 Admit Provider: Kvng Khan
[2024-12-29] MEDS: PHENobarbital 65 MG/ML VIAL 130 MG IV (19:18)
[2024-12-29] MEDS: cefTRIAXone 1,000 MG in SODIUM CHLORIDE 0.9% 100 ML 200 MG IV (19:18)
[2024-12-29] MEDS: LORazepam 2 MG/ML INJ 1 MG IV (19:18)
--- NOTE | 2024-12-29 19:31 | PC.NURSE ---
Pt tells this RN I do want to go to detox. VECTOR CONTROL ASSISTANT Courtney and provider Mignon made aware.
--- NOTE | 2024-12-29 19:53 | CM.SWNOTE ---
ED FIRING PIN GAUGER Assessment Note: FIRING PIN GAUGER - Clinic Director Assessment FIRING PIN GAUGER - Clinic Director Assessment Start: 12/29/24 19:31 Freq: Status: Active Protocol: Document 12/29/24 19:32 MW (Rec: 12/29/24 19:42 MW Desktop) FIRING PIN GAUGER/Clinic Director Assessment Time Spent with Patient Start date 12/29/24 Visit Start Time 16:22 End date 12/29/24 Visit End Time 16:45 Total time Care Management spent on 23 minutes patient visit-in minutes Mental Health Screening Include Onset, Duration, Intensity Presenting Problem Patient presented to the ED with her for concerns of hallucinations which pt believes to be from severe UTIs. Patient explains she has recurrrent UTIs, she counted 4 in the past to be very severe. Precipitating Event(s) Patient and report having recent falls as recent as , 12/25 which ended with 2 stevan in her scalp. Today, patient reports having a fall today where she experienced a laceration on her hand. Patient states she was having hallucinations as recent as this morning where she had a republican in my house and she has hx of seeing aliens coming from the [place]. Patient reports patient having issues with etoh consumption, She had a BAL 270 on , 12/25 and she has been dry since then. Patient reports having a big glass of wine today, 12/29 at 1400. On average, patient reports drinking 2 glasses of wine/day. No recreational drug use or hard liquor consumption. Patient Strengths Patient is supported by at bedside, she is self-aware. Current Behavioral Health Provider(s) None reported. Include Facility, Provider, Ph. # Psych. Hx Mental Health and Chemical None reported. Dependency Family Hx of Behavioral Abuse None reported. Psychiatric Hospitalizations (date(s)/ None reported. location) Psychosocial information & Support Patient is a 59yo female, Systems resident of [place], with her . School/Work Patient states she is in school. Substance Abuse Screening Include Onset, Duration, Intensity Rehab Facilities? ((Date(s), Location(s) None reported. ) History of Withdrawal? Seizures? No hx reported. Longest Period of Sobriety 10 - 11 months Legal Concerns Legal Matters - Outstanding Issues None reported. Mental Status Orientation (Person/Place/Time) AOx3 Affect (Congruent with Mood?) Full range, congruent with mood Thought Content - Specify/Describe Visual hallucinations: Seeing Obsessions, Delusions, Hallucinations family in the house, seeing dogs in the closet. Hx of seeing aliens coming from the [place] and having a concert on our rocks. Thought Processes (Hylfqzu-Asjbvimu-Yzua Logical, thought blocking, Gqkobuyr-Tjrbcoia-Kentdtknvq- tangential Mvmefxaftizfkk-Smowxjw-Puodgpuqjigk- Thought Blocking) Speech (Zuglwt-Avgz-Vkufzit-Rapid-Soft- Rapid Loud-Pressured) Motor (Zmtswh-Wpmgvxoaa-Ojti-Other) Excessive, shaky Insight (Sotn-Bqis-Skpy/Limited) Fair/limited Judgement (Ceaq-Veda-Wvei/Limited) Poor/limited Impulse Control (Adequate-Impaired) Impaired Memory (Rfwcdrvsr-Yzcqdf-Byxjir, Remote Impaired-Intact) Concentration (Intact-Impaired) Intact Attention (Intact-Impaired) Intact Behavior (Appropriate-Inappropriate) Appropriate Additional Comment Patient is calm, cooperative and communicative during assessment. Risk Assessment Suicidal Ideation (Plan) No Homicidal Ideation (Plan) No Intervention Intervention Reviewed chart and discussed with ED Provider pt's medical status and discharge needs. ED FIRING PIN GAUGER meets with patient. Patient endorses hallucinations and symptoms congruent with ETOH withdrawal . ED FIRING PIN GAUGER and patient discuss goals of care. Patient explains they are agreeable to referral to ETOH detox at this time. At this time, it is the opinion of this FIRING PIN GAUGER that patient would benefit from ETOH detox. FIRING PIN GAUGER informs ED provider, Dr. Crow, who indicates agreement. FIRING PIN GAUGER informs BRIGITTE Rodriguez. Plan RA Plan Once patient is medically clear, ED staff will attempt to find detox placement for patient. JMUANA Cohen
--- NOTE | 2024-12-29 19:57 | CM.SWNOTE ---
ED HEEL ROOM SUPERVISOR Note: ED HEEL ROOM SUPERVISOR initiated bed search for ETOH detox placement. HEEL ROOM SUPERVISOR calls [facility], it was reported that there are beds available. Pt stated preference for [facility]. HEEL ROOM SUPERVISOR sent packet for review. HEEL ROOM SUPERVISOR calls [facility], it was reported that there are beds available. Pt open to this facility only if [place] facility not available. Plan: Pending acceptance at ETOH detox facility, ED staff to coordinate disposition as plan evolves. Courtney Rendon, SALAD MAKER
--- NOTE | 2024-12-29 20:00 | CM.SWNOTE ---
ED PARKING CONTROL OFFICER Note: PARKING CONTROL OFFICER reviewed assessment with provider who is agreeable with pt detox placement, states pt is medically cleared. ED PARKING CONTROL OFFICER initiated bed search for ETOH detox placement. PARKING CONTROL OFFICER calls [facility], it was reported that there are beds available. Pt stated preference for [facility]. PARKING CONTROL OFFICER sent packet for review. PARKING CONTROL OFFICER calls [facility], it was reported that there are beds available. Pt open to this facility only if [place] facility not available. ED PARKING CONTROL OFFICER reviewed above with ED RN, RIVER and pt/pt . Plan: Pending acceptance at ETOH detox facility, ED staff to coordinate disposition as plan evolves. DONTA CohenSW
[2024-12-29 20:09] LABS: Reflexed Lactate in 2 Hours Y
[2024-12-29 20:36] LABS: Lactate 2HR (Lactic Acid Rflx) 1.4 mmol/L (0.7-2.1)
--- NOTE | 2024-12-29 20:59 | PC.NURSE ---
android programmer called [facility] regarding intake /placement; Intake stated the provider would be reviewing the packet shortly
--- NOTE | 2024-12-29 23:38 | PC.NURSE ---
Pt is on the ED phone speaking with in-take screening @ [facility]
[2024-12-30] VITALS (33 sets, daily range): BP systolic 97–138; BP diastolic 47–67; PULSE 68–106; RESP 12–27; TEMP 36.7–36.8; O2SAT 93–100; BMI 21.6
--- NOTE | 2024-12-30 01:01 | PC.NURSE ---
Pt's went home; he took pt's jewelry home with him.
[2024-12-30] MEDS: PHENobarbital 65 MG/ML VIAL 130 MG IV (02:59)
--- NOTE | 2024-12-30 03:26 | PC.NURSE ---
Pt woke tremulous and disoriented. Stated year is 1924. Tolerated food and drink by mouth. Ambulated unsteadily to BR with stand-by assist. Pt was incontinent of urine; linens and clothes changed. Pt actively hallucinating; she inquired about a child in the room with her (pt is alone in room.) Dr Crow aware of above. Pt medicated with phenobarb for WD symptoms per order.
[2024-12-30] MEDS: MAG HYDROX/ALUM/SIMETH 30 ML UDC PO (09:22)
[2024-12-30] MEDS: LORazepam 2 MG/ML INJ IV (09:24)
[2024-12-30] MEDS: FOLIC ACID 1 MG TABLET PO (09:25)
[2024-12-30] MEDS: THIAMINE 100 MG TABLET PO (09:25)
[2024-12-30] MEDS: SODIUM CHLORIDE 0.45% 1,000 ML 100 ML IV ×2 (11:05→22:57)
[2024-12-30] MEDS: PANTOPRAZOLE DR 20 MG TABLET PO (11:05)
[2024-12-30] MEDS: MULTIVITAMIN 1 TABLET 1 TAB PO (11:05)
[2024-12-30] MEDS: ACETAMINOPHEN 325 MG TABLET 650 MG PO (13:40)
--- NOTE | 2024-12-30 14:04 | P.HP_ITS ---
History of Present Illness History of Present Illness Date Patient Seen: 12/30/24 Chief complaint: hallucinations, possible alcohol related, UTI Narrative: Chief complaint: Tremors hallucinosis secondary to alcohol withdrawal History of present illness: 59-year-old female history of heavy alcohol use head hallucinosis the day prior to today of presentation to the emergency department on 12/29 she was trying to cut back to 2 glasses of wine a day when these symptoms started. She had a fall with a closed head injury 4 days prior to this visit to the emergency room which prompted her to reduce her alcohol intake. Her previous alcohol level was 270 on 12/25 Patient was given 2 doses of phenobarbital and benzodiazepines with good resolution of symptoms and no further hallucinosis. Patient will be referred to admission for alcohol withdrawal and detoxification. Review of systems: No fever chills headache diplopia No difficulty swallowing No chest pain or shortness of breath The paresthesia or paresis Physical exam: Alert female with facial stigmata of alcoholism Neck no JVD Heart rate and rhythm regular Lungs clear Abdomen nondistended bowel sounds present nontender Extremities no cyanosis clubbing edema Patient alert and oriented x4 Neurologic nonfocal [facility] Medical History (Updated 12/30/24 @ 08:44 by Kvng Schultz MD) Alcohol withdrawal Stress incontinence Acute maxillary sinusitis Well adult exam Alcohol abuse Portal hypertension Cirrhosis Abdominal ascites Social History household members: significant other Smoking Status: Never smoker alcohol intake: current Meds Home Medications and Allergies Home Medications Medication Instructions Recorded Confirmed Type amoxicillin 500 mg capsule 500 mg PO TID #21 caps 12/08/24 12/30/24 Rx sulfamethoxazole 800 1 tab PO BID #14 tabs 12/08/24 12/30/24 Rx mg-trimethoprim 160 mg tablet (Bactrim DS) tolterodine 2 mg capsule,extended 2 mg PO BEDTIME #30 caps 12/08/24 12/30/24 Rx release 24 hr (Detrol [place]) Allergies Allergy/AdvReac Type Severity Reaction Status Date / Time No Known Drug Allergies Allergy Verified 12/25/24 18:40 Exam Vital Signs (past 8 hours): - 12/30/24 06:30 12/30/24 07:00 12/30/24 07:00 Temperature Pulse Rate 83 83 Respiratory Rate 16 14 Blood Pressure 124/58 L Pulse Oximetry 93 94 Oxygen Flow Rate 03/18/25 07:30 12/30/24 08:00 12/30/24 08:00 Temperature Pulse Rate 80 89 Respiratory Rate 15 17 Blood Pressure 123/57 L Pulse Oximetry 94 96 Oxygen Flow Rate 12/30/24 08:30 12/30/24 09:00 12/30/24 09:00 Temperature Pulse Rate 80 77 Respiratory Rate 17 13 Blood Pressure 138/62 Pulse Oximetry 97 96 Oxygen Flow Rate 12/30/24 09:27 12/30/24 09:27 12/30/24 09:30 Temperature Pulse Rate 75 81 Respiratory Rate 19 19 Blood Pressure 130/63 Pulse Oximetry 97 98 Oxygen Flow Rate 12/30/24 09:44 12/30/24 10:00 Temperature 98.0 F Pulse Rate 80 76 Respiratory Rate 18 14 Blood Pressure 130/58 L Pulse Oximetry 98 Oxygen Flow Rate 0 Oxygen Delivery Method Room Air Oxygen Flow Rate 0 Objective Labs 12/29/24 16:47 12/29/24 16:47 Labs: Laboratory Results - last 24 hr 12/29/24 12/29/24 12/29/24 16:47 17:20 17:20 WBC 5.5 RBC 3.45 L Hgb 11.2 L Hct 33.3 L MCV 96.7 MCH 32.4 MCHC 33.6 RDW 16.9 H Plt Count 73 L Neut % (Auto) 56.5 Lymph % (Auto) 20.6 L Fisher % (Auto) 20.0 H Eos % (Auto) 1.6 L Baso % (Auto) 1.3 Neut # (Auto) 3100 Lymph # (Auto) 1100 Fisher # (Auto) 1100 H Eos # (Auto) 100 Baso # (Auto) 100 Sodium 134 L Potassium 3.6 Chloride 101 Carbon Dioxide 21 L BUN 21 H Creatinine 1.37 H Estimated GFR 45 L BUN/Creatinine Ratio 15.3 Glucose 92 Lactate Calcium 8.8 Total Bilirubin 3.1 H AST 97 H ALT 27 Alkaline Phosphatase 103 Total Protein 7.0 Albumin 3.4 L Globulin 3.6 Albumin/Globulin Ratio 0.9 L TSH 4.18 Free T4 1.75 Urine Color Yellow Urine Appearance Clear Urine pH 6.0 Normal Ur Specific [place] 1.020 Urine Protein Trace H Urine Glucose (UA) Negative Urine Ketones Negative Urine Occult Blood 3+ H Urine Nitrate Negative Urine Bilirubin Negative Urine Urobilinogen 1.0 Ur Leukocyte Esterase Trace H Urine RBC 10-30/hpf H Urine WBC 1-5/hpf Ur Squamous Epith Cells 1-5 /hpf Amorphous Sediment 1+ Urine Bacteria Few (2-10) H Ur Culture Indicated? Cult not indicated Vol Urine Centrifuged 10ml (spun) Salicylates < 1.0 U Opiates 300ng/mL cut Negative Ur Oxycodone Screen Negative Urine Methadone Screen Negative Acetaminophen < 10 Ur Barbiturates Screen Negative U Tricyclic Antidepress Negative Ur Phencyclidine Scrn Negative Ur Amphetamines Screen Negative U Methamphetamines Scrn Negative Ur MDMA Scrn (Ecstasy) Negative U Benzodiazepines Scrn Positive H Urine Cocaine Screen Negative U Marijuana (THC) Screen Negative Urine Specific [place] Normal Ethyl Alcohol 79 H Ur Creatinine Normal 12/29/24 12/29/24 18:28 20:18 WBC RBC Hgb Hct MCV MCH MCHC RDW Plt Count Neut % (Auto) Lymph % (Auto) Fisher % (Auto) Eos % (Auto) Baso % (Auto) Neut # (Auto) Lymph # (Auto) Fisher # (Auto) Eos # (Auto) Baso # (Auto) Sodium Potassium Chloride Carbon Dioxide BUN Creatinine Estimated GFR BUN/Creatinine Ratio Glucose Lactate 2.1 1.4 Calcium Total Bilirubin AST ALT Alkaline Phosphatase Total Protein Albumin Globulin Albumin/Globulin Ratio TSH Free T4 Urine Color Urine Appearance Urine pH Ur Specific [place] Urine Protein Urine Glucose (UA) Urine Ketones Urine Occult Blood Urine Nitrate Urine Bilirubin Urine Urobilinogen Ur Leukocyte Esterase Urine RBC Urine WBC Ur Squamous Epith Cells Amorphous Sediment Urine Bacteria Ur Culture Indicated? Vol Urine Centrifuged Salicylates U Opiates 300ng/mL cut Ur Oxycodone Screen Urine Methadone Screen Acetaminophen Ur Barbiturates Screen U Tricyclic Antidepress Ur Phencyclidine Scrn Ur Amphetamines Screen U Methamphetamines Scrn Ur MDMA Scrn (Ecstasy) U Benzodiazepines Scrn Urine Cocaine Screen U Marijuana (THC) Screen Urine Specific [place] Ethyl Alcohol Ur Creatinine Assessment & Plan Assessment & Plan narrative: Acute alcohol withdrawal with hallucinosis and delirium with response to phenobarbital and lorazepam in the emergency department. -CIWA protocol as well as scheduled taper prophylaxis with benzodiazepine therapy -IV thiamine for prophylaxis against development Wernicke-Korsakoff syndrome -had discussion with acute inpatient alcohol rehab and alcoholics anonymous to which the patient seemed receptive Acute alcoholic hepatitis -monitor liver enzymes DVT prophylaxis with mechanical only due to risk of fall and previous head trauma status post suture laceration with stevan Full code blue Time-Based Coding :: Seventy-five minutes spent with patient and on the chart (including review of chart, obtaining history, exam, reviewing outside data, placing orders, documenting exam and treatment plan, and counseling patient) on 12/30/2024
[2024-12-31 02:00] VITALS: BP 117/54; PULSE 72; RESP 20; TEMP 36.6; O2SAT 96
[2024-12-31 05:21] LABS: Add Manual Diff / Slide Review NO; Basophils Absolute Auto 100 /uL (0-100); Basophils Percent Auto 1.9 % (0-2); Eosinophils Absolute Auto 100 /uL (0-450); Eosinophils Percent Auto 3.4 % (2-4); Hematocrit 31.4 % (36-46); Hemoglobin 10.7 g/dL (12.0-16.0); Lymphocytes Absolute Auto 1100 /uL (1100-4500); Lymphocytes Percent Auto 36.2 % (25-40); Mean Corpuscular HGB Conc 34.1 % (30-36); Mean Corpuscular Hemoglobin 32.6 PG (26-34); Mean Corpuscular Volume 95.8 fL (80-100); Monocytes Absolute Auto 700 /uL (0-900); Monocytes Percent Auto 23.9 % (3-14); Neutrophils Absolute Auto 1100 /uL (1500-7000); Neutrophils Percent Auto 34.6 % (50-75); Platelet Count 71 X10^3/uL (150-400); Red Blood Cell Count 3.28 X10^6/uL (4.0-5.2); White Blood Cell Count 3.1 X10^3/uL (4.5-11.0)
[2024-12-31] MEDS: PANTOPRAZOLE DR 20 MG TABLET PO (05:48)
[2024-12-31] MEDS: FOLIC ACID 1 MG TABLET PO (08:17)
[2024-12-31] MEDS: ACETAMINOPHEN 325 MG TABLET 650 MG PO (08:17)
[2024-12-31] MEDS: THIAMINE 100 MG TABLET PO (08:17)
[2024-12-31] MEDS: MULTIVITAMIN 1 TABLET 1 TAB PO (08:17)
[2024-12-31 10:00] VITALS: BP 104/54; PULSE 77; RESP 10; TEMP 36.6; O2SAT 94
--- NOTE | 2024-12-31 11:25 | DIET.CONS ---
Dietary Consultation Note Admission Date: 12/30/2024 08:37 Assessment: 59 y F admitted for alcohol withdrawal. Dietitian consulted for malnutrition. Attempted to meet with pt x2 yesterday and once this morning. Pt sleeping heavily. EMR reviewed. Pt with hx of alcohol abuse with likely inadequate protein or nutrient dense intake secondary to excessive EtOH intake. Ht: 172.72 cm Wt: 64.41 kg BMI: 21.6 UBW: 69.938 kg on 08/07/24 (-8% weight loss in 5 months, non-severe), 67.755 kg on 12/08/24 (-5% weight loss within 1 month, severe) Last BM: () MNA: Dat Score: 21 Diet: 12/30/24 Lunch General (Regular) Diet Diet Modifications: Safety Tray needed?: No Nutrition Percent Meal Consumed 75% 12/30/24 18:00 Percent Meal Consumed 50% 12/30/24 14:36 Labs: RBC 3.28 X10^6/uL (4.0-5.2) L 12/31/24 05:00 Hgb 10.7 g/dL (12.0-16.0) L 12/31/24 05:00 Hct 31.4 % (36-46) L 12/31/24 05:00 Creatinine 1.37 mg/dL (0.52-1.04) H 12/29/24 16:47 Lactate 1.4 mmol/L (0.7-2.1) 12/29/24 20:18 Nutrition Diagnosis: Unintentional weight loss r/t likely inadequate protein or nutrient dense intake secondary to excessive EtOH intake aeb 5% weight loss in 1 month (severe) Interventions: -Will continue to monitor PO intakes and add ONS if x2 PO intakes are <75% EER: 1900 kcals (30 kcals/kg per BMI) 75 g protein (1.2g/kg per hepatitis) Electronically Signed by: Erma Anthony 12/31/24 11:25 Clinical Dietitian [address] [id number]
--- NOTE | 2024-12-31 12:15 | CM.DANOTE ---
Discharge Planning/Care Management CM Discharge Assessment Start: 12/31/24 12:09 Freq: Status: Active Protocol: Document 12/31/24 12:09 JAMAR (Rec: 12/31/24 12:15 JW [id number]) Discharge Planning Assessment Assigned Manager Primary ZECHARIAH Amor DPOA/Assigned Designee Name zuly Condon Contact Information [phone] Advance Directives? Yes Advance Directives on File Yes: already in system from previous admissions History Provided By Patient,Significant Other, Medical Record Has Patient been admitted in last 30 No days? Comment In the ER 12/25/24 Prior Living Arrangements House Household Members significant other Type of transporation used prior to Drives own vehicle admit Independent with ADL's Yes Is patient alert and oriented? Yes Patient/Family Preference Drug/Alcohol Rehab Comment SO wants patient to go to D/A rehab, patient denies being an alcoholic, says she plans to cut down. Barriers to Discharge No Discharge Plan Home Transportation Arrangement Family or significant other. Referrals Initiated None needed,Other Additional Comment Following closely in case this changes. ED Psychiatric Symptoms Assessment Start: 12/29/24 16:32 Freq: Q2H Status: Discharge Protocol: Document 12/29/24 17:26 SB (Rec: 12/29/24 17:35 SB [id number]) Psychiatric Symptoms Assessment Symptoms/Complaint hallucinations Onset ongoing, worsening today Duration Changing Over Time History Of Same Yes: pt reports hallucinations when she has a UTI Context Unknown Improves With Nothing Worsens With Alcohol Associated Psychiatric Symptoms Auditory Hallucinations,Visual Hallucinations Associated Symptoms Nausea,Vomiting Details of Plan Brought in by pt's . This RN speaks to pt while he is out of the room. Pt reports visual and auditory hallucinations such as seeing aliens come down and land while she is on her balcony and talking to rocks. Pt also reports seeing people have a democrat in my house. Asked if she or the people/ aliens she is seeing asks her to harm self or others and she denies. Denies SI/HI. Pt is visibly shaky. Reports n/v yesterday. Has a small lac to her RIGHT palm of hand. Bruising on her RIGHT arm and LEFT flank. Pt reports multiple falls because of my shoes. She intially denies pain, but once up walking states pain in hips and shins. She is A&Ox4 and not currently hallucinating. Last fall this am. Denies hitting head. Denies LOC. States she tripped coming off last step at home. Is ambulatory in the department. Unsteady on feet. Level of Observation Intermittent Room placement non-ligature mitigated room Level of Consciousness Alert,Awake,Follows Commands Patient Orientation Name,Age,Birthday,Month,Date, Year,Day of Week,Place, Situation Patient Behavior/Mood Anxious Ability to Follow Directions Good Patient Cognition Impaired Yes: hx of hallucinations, states recent drinking Affect Description Angry,Anxious Patient Appearance Well Groomed Hallucination Type Auditory,Visual Delusion Description Bizarre Thought Process: Other Depressive Symptoms Difficulty Sleeping,Increased Irritability Suicidal Ideation None Suicide Plan No Plan Homicidal Ideation None Nausea/Vomiting None Document 12/29/24 19:26 SB (Rec: 12/29/24 19:34 SB [id number]) Psychiatric Symptoms Assessment Symptoms/Complaint hallucinations Duration Changing Over Time History Of Same Yes Context Recent Alcohol Abuse Worsens With Alcohol Associated Psychiatric Symptoms Auditory Hallucinations,Visual Hallucinations Details of Plan Pt currently denies auditory and visual hallucinations. She is CIWA of 11. Medicated as per DEC. Pt reports to this RN she would like to go to detox . TABLEAU ARCHITECT and provider made aware. Level of Observation Intermittent Level of Consciousness Alert,Awake,Follows Commands Patient Orientation Name,Age,Birthday,Month,Year, Day of Week,Place,Situation Patient Behavior/Mood Anxious Ability to Follow Directions Good Affect Description Anxious Patient Appearance Well Groomed Hallucination Type Command,Visual Delusion Description Bizarre Depressive Symptoms Difficulty Sleeping,Increased Irritability Suicidal Ideation None Suicide Plan No Plan Homicidal Ideation None Nausea/Vomiting None Document 12/29/24 21:00 [facility] (Rec: 12/29/24 21:09 [facility] [id number]) Psychiatric Symptoms Assessment Symptoms/Complaint Altered Mental Status Duration Changing Over Time History Of Same Yes Context Recent Alcohol Abuse Associated Psychiatric Symptoms Auditory Hallucinations,Visual Hallucinations Details of Plan Pt is currently experiencing auditory & visual hallucinations, making note of her two dogs being present in room. Per , they do not have dogs even at home. Still agreable to detox at this time. Level of Observation Intermittent Level of Consciousness Alert,Awake,Follows Commands Patient Orientation Name,Age,Birthday,Month,Date, Year,Day of Week,Place, Situation Patient Behavior/Mood Anxious,Impulsive Ability to Follow Directions Good Affect Description Anxious Patient Appearance Well Groomed Hallucination Type Auditory,Command,Visual Delusion Description Bizarre Thought Process: Disorganized Depressive Symptoms Difficulty Concentrating, Difficulty Sleeping,Difficulty Making Decisions,Increased Anxiety Suicidal Ideation None Suicide Plan No Plan Homicidal Ideation None Nausea/Vomiting None Document 12/29/24 23:00 SB (Rec: 12/29/24 23:24 SB [id number]) Psychiatric Symptoms Assessment Symptoms/Complaint Altered Mental Status Onset hallucinations periodically Duration Changing Over Time History Of Same Yes Context Recent Alcohol Abuse Associated Psychiatric Symptoms Auditory Hallucinations,Visual Hallucinations Details of Plan Pt reports feeling more calm after admin of meds. She has intermittent hallucinations. Tremors have decreased. Is still agreeable to treament at detox. Level of Observation Intermittent Room placement non-ligature mitigated room Level of Consciousness Alert,Awake,Follows Commands Patient Orientation Name,Age,Birthday,Month,Date, Place,Situation Patient Behavior/Mood Cooperative Affect Description Calm Hallucination Type Auditory,Visual Delusion Description Bizarre Depressive Symptoms Difficulty Concentrating, Increased Anxiety Suicidal Ideation None Suicide Plan No Plan Homicidal Ideation None Nausea/Vomiting None Document 12/30/24 01:00 SB (Rec: 12/30/24 01:25 SB [id number]) Psychiatric Symptoms Assessment Symptoms/Complaint Altered Mental Status Onset intermittent hallucinations Duration Changing Over Time History Of Same Yes Context Recent Alcohol Abuse Associated Psychiatric Symptoms Auditory Hallucinations,Visual Hallucinations Details of Plan Pt resting. Respirations observed. Remains on monitor. Spoke with [facility]. Plan to revaluate in morning due to bed availability. Level of Observation Intermittent Room placement non-ligature mitigated room Level of Consciousness Follows Commands Patient Behavior/Mood Cooperative Affect Description Calm Hallucination Type Auditory,Visual Suicidal Ideation None Suicide Plan No Plan Homicidal Ideation None Nausea/Vomiting None Document 12/30/24 03:00 KW (Rec: 12/30/24 03:31 KW [id number]) Psychiatric Symptoms Assessment Symptoms/Complaint Altered Mental Status Context Recent Alcohol Abuse Improves With Medication Associated Psychiatric Symptoms Visual Hallucinations Associated Symptoms Confusion Level of Observation Intermittent Room placement non-ligature mitigated room Level of Consciousness Alert,Disoriented,Follows Commands Patient Orientation Name,Age,Birthday,Month,Date, Place,Situation Patient Behavior/Mood Cooperative Ability to Follow Directions Good Affect Description Nervous Patient Appearance Well Groomed Hallucination Type Visual Suicidal Ideation None Nausea/Vomiting None Document 12/30/24 05:07 LS (Rec: 12/30/24 05:07 LS Desktop) Psychiatric Symptoms Assessment Symptoms/Complaint Altered Mental Status Document 12/30/24 08:33 KB (Rec: 12/30/24 08:42 KB [id number]) Psychiatric Symptoms Assessment Symptoms/Complaint Altered Mental Status Duration Changing Over Time History Of Same Yes Context Recent Alcohol Abuse Worsens With Alcohol Associated Psychiatric Symptoms Depression,Racing Thoughts Associated Symptoms Insomnia Level of Observation Intermittent Level of Consciousness Awake,Disoriented Patient Orientation Name,Age,Birthday,Year, Situation Patient Behavior/Mood Cooperative Ability to Follow Directions Poor Patient Cognition Impaired No Affect Description Depressed Patient Appearance Disheveled Delusion Description Not Present Thought Process: Impoverished Depressive Symptoms Difficulty Sleeping Feelings of Hopelessness No Suicidal Ideation None Suicide Plan No Plan Homicidal Ideation None Nausea/Vomiting None Document 12/30/24 09:42 KB (Rec: 12/30/24 09:44 KB [id number]) Psychiatric Symptoms Assessment Symptoms/Complaint Altered Mental Status Duration Changing Over Time History Of Same Yes Context Recent Alcohol Abuse,Recent Drug Abuse Worsens With Alcohol,Drug Use Associated Psychiatric Symptoms Auditory Hallucinations, Depression,Racing Thoughts Associated Symptoms Headache Level of Observation Intermittent Level of Consciousness Appropriate,Awake Patient Orientation Name,Age,Birthday,Year, Situation Patient Behavior/Mood Cooperative Ability to Follow Directions Poor Affect Description Anxious Patient Appearance Disheveled Hallucination Type Auditory Thought Process: Impoverished Depressive Symptoms Changes in Appetite,Difficulty Sleeping,Insomnia Suicidal Ideation None Suicide Plan No Plan Homicidal Ideation None Nausea/Vomiting None TABLEAU ARCHITECT - Rack Pusher Assessment Start: 12/29/24 19:31 Freq: Status: Discharge Protocol: Document 12/29/24 19:32 MW (Rec: 12/29/24 19:42 MW Desktop) TABLEAU ARCHITECT/Rack Pusher Assessment Start date 12/29/24 Visit Start Time 16:22 End date 12/29/24 Visit End Time 16:45 Total time Care Management spent on 23 minutes patient visit-in minutes Presenting Problem Patient presented to the ED with her for concerns of hallucinations which pt believes to be from severe UTIs. Patient explains she has recurrrent UTIs, she counted 4 in the past to be very severe. Precipitating Event(s) Patient and report having recent falls as recent as , 12/25 which ended with 2 stevan in her scalp. Today, patient reports having a fall today where she experienced a laceration on her hand. Patient states she was having hallucinations as recent as this morning where she had a democrat in my house and she has hx of seeing aliens coming from the [place]. Patient reports patient having issues with etoh consumption, She had a BAL 270 on , 12/25 and she has been dry since then. Patient reports having a big glass of wine today, 12/29 at 1400. On average, patient reports drinking 2 glasses of wine/day. No recreational drug use or hard liquor consumption. Patient Strengths Patient is supported by at bedside, she is self-aware. Current Behavioral Health Provider(s) None reported. Include Facility, Provider, Ph. # Psych. Hx Mental Health and Chemical None reported. Dependency Family Hx of Behavioral Abuse None reported. Psychiatric Hospitalizations (date(s)/ None reported. location) Psychosocial information & Support Patient is a 59yo female, Systems resident of [place], with her . School/Work Patient states she is in school. Rehab Facilities? ((Date(s), Location(s) None reported. ) History of Withdrawal? Seizures? No hx reported. Longest Period of Sobriety 10 - 11 months Legal Matters - Outstanding Issues None reported. Orientation (Person/Place/Time) AOx3 Affect (Congruent with Mood?) Full range, congruent with mood Thought Content - Specify/Describe Visual hallucinations: Seeing Obsessions, Delusions, Hallucinations family in the house, seeing dogs in the closet. Hx of seeing aliens coming from the [place] and having a concert on our rocks. Thought Processes (Xnpurcd-Uednrsrn-Dzhr Logical, thought blocking, Hjnvmtrm-Famanvck-Umxscfwrsn- tangential Zmopavdqwyjemj-Bzfdbxw-Cqyqvnlyqjsw- Thought Blocking) Speech (Ghayvs-Otpt-Hdgkrtz-Rapid-Soft- Rapid Loud-Pressured) Motor (Ienkab-Epnltcwum-Tjxp-Other) Excessive, shaky Insight (Dgut-Sgtg-Hbor/Limited) Fair/limited Judgement (Wrby-Ruyk-Mdal/Limited) Poor/limited Impulse Control (Adequate-Impaired) Impaired Memory (Jxlrpciny-Bdaffs-Lwzfjz, Remote Impaired-Intact) Concentration (Intact-Impaired) Intact Attention (Intact-Impaired) Intact Behavior (Appropriate-Inappropriate) Appropriate Additional Comment Patient is calm, cooperative and communicative during assessment. Suicidal Ideation (Plan) No Homicidal Ideation (Plan) No Intervention Reviewed chart and discussed with ED Provider pt's medical status and discharge needs. ED TABLEAU ARCHITECT meets with patient. Patient endorses hallucinations and symptoms congruent with ETOH withdrawal . ED TABLEAU ARCHITECT and patient discuss goals of care. Patient explains they are agreeable to referral to ETOH detox at this time. At this time, it is the opinion of this TABLEAU ARCHITECT that patient would benefit from ETOH detox. TABLEAU ARCHITECT informs ED provider, Dr. Crow, who indicates agreement. TABLEAU ARCHITECT informs BRIGITTE Rodriguez. RA Plan Once patient is medically clear, ED staff will attempt to find detox placement for patient.
--- NOTE | 2024-12-31 13:50 | CM.DANOTE ---
Initial DCP Assessment Note Pt is a 59 yo female, resident of [place], presents to the ER 12/29 with complaints of hallucinating, hx heavy alcohol use, states she has been trying to cut her drinking down at home. Patient with a BAL of 79, admitted for management of ETOH withdrawal and placed on CIWA protocol. PCP: Doug Trevino Payer: Teodora Castillo Spouse See requests to speak with this COMPARATIVE SOCIOLOGY PROFESSOR. Met w/patient and spouse at bedside, patient A+Ox4 throughout our visit. Patient lives independently with spouse. Discussed recent falls and patient reports these falls are not related to alcohol use, patient states she has shoes that trip her. Discussed current ETOH use; patient reports 3 glasses of white wine in the evening. Patient denies hard alcohol or illicit drug use. This COMPARATIVE SOCIOLOGY PROFESSOR asked patient if she feels her drinking is a problem in her life. Patient answers no and further states that she should cut down. Patient tells this COMPARATIVE SOCIOLOGY PROFESSOR she does not consider herself an alcoholic states she has difficulty stopping when she starts, however, only drinks in the evening and socially which patient categorizes as having a problem with drinking. Patient reports drinking since college. No hx of inpatient or outpatient treatment according to patient. Spouse in obvious distress, states patient needs to go to an inpatient treatment facility or she's not coming home. Spouse admits to also drinking. Discussed outpatient vs inpatient [facility] treatment and general what to expect. Spouse prefers [facility] in [facility]. Patient hesitant throughout the remainder of our conversation; says she will go to treatment because I know it will appease him (spouse). Explained to both patient and spouse that if patient goes through treatment to appease someone else, it is likely the treatment will have no lasting effect. It is also very likely that patient will leave treatment earlier than advised. Left patient's room to allow patient and spouse to discuss next steps. SW team will plan to follow clinical closely. Another visit before discharge may be beneficial. Plan: Discharge home anticipated, patient agreeable this visit to getting list of AA meetings. ZECHARIAH Hung Discharge Planning/Care Management CM Discharge Assessment Start: 12/31/24 12:09 Freq: Status: Active Protocol: Document 12/31/24 12:09 JAMAR (Rec: 12/31/24 12:15 JAMAR [id number]) Discharge Planning Assessment Assigned Cylinder Devalver ZECHARIAH Amor DPOA/Assigned Designee Name zuly Condon Contact Information [phone] Advance Directives? Yes Advance Directives on File Yes: already in system from previous admissions History Provided By Patient,Significant Other, Medical Record Has Patient been admitted in last 30 No days? Comment In the ER 12/25/24 Prior Living Arrangements House Household Members significant other Type of transporation used prior to Drives own vehicle admit Independent with ADL's Yes Is patient alert and oriented? Yes Patient/Family Preference Drug/Alcohol Rehab Comment SO wants patient to go to D/A rehab, patient denies being an alcoholic, says she plans to cut down. Barriers to Discharge No Discharge Plan Home Transportation Arrangement Family or significant other. Referrals Initiated None needed,Other Additional Comment Following closely in case this changes. ED Psychiatric Symptoms Assessment Start: 12/29/24 16:32 Freq: Q2H Status: Discharge Protocol: Document 12/29/24 17:26 SB (Rec: 12/29/24 17:35 SB [id number]) Psychiatric Symptoms Assessment Symptoms/Complaint hallucinations Onset ongoing, worsening today Duration Changing Over Time History Of Same Yes: pt reports hallucinations when she has a UTI Context Unknown Improves With Nothing Worsens With Alcohol Associated Psychiatric Symptoms Auditory Hallucinations,Visual Hallucinations Associated Symptoms Nausea,Vomiting Details of Plan Brought in by pt's . This RN speaks to pt while he is out of the room. Pt reports visual and auditory hallucinations such as seeing aliens come down and land while she is on her balcony and talking to rocks. Pt also reports seeing people have a democrat in my house. Asked if she or the people/ aliens she is seeing asks her to harm self or others and she denies. Denies SI/HI. Pt is visibly shaky. Reports n/v yesterday. Has a small lac to her RIGHT palm of hand. Bruising on her RIGHT arm and LEFT flank. Pt reports multiple falls because of my shoes. She intially denies pain, but once up walking states pain in hips and shins. She is A&Ox4 and not currently hallucinating. Last fall this am. Denies hitting head. Denies LOC. States she tripped coming off last step at home. Is ambulatory in the department. Unsteady on feet. Level of Observation Intermittent Room placement non-ligature mitigated room Level of Consciousness Alert,Awake,Follows Commands Patient Orientation Name,Age,Birthday,Month,Date, Year,Day of Week,Place, Situation Patient Behavior/Mood Anxious Ability to Follow Directions Good Patient Cognition Impaired Yes: hx of hallucinations, states recent drinking Affect Description Angry,Anxious Patient Appearance Well Groomed Hallucination Type Auditory,Visual Delusion Description Bizarre Thought Process: Other Depressive Symptoms Difficulty Sleeping,Increased Irritability Suicidal Ideation None Suicide Plan No Plan Homicidal Ideation None Nausea/Vomiting None Document 12/29/24 19:26 SB (Rec: 12/29/24 19:34 SB [id number]) Psychiatric Symptoms Assessment Symptoms/Complaint hallucinations Duration Changing Over Time History Of Same Yes Context Recent Alcohol Abuse Worsens With Alcohol Associated Psychiatric Symptoms Auditory Hallucinations,Visual Hallucinations Details of Plan Pt currently denies auditory and visual hallucinations. She is CIWA of 11. Medicated as per DEC. Pt reports to this RN she would like to go to detox . COMPARATIVE SOCIOLOGY PROFESSOR and provider made aware. Level of Observation Intermittent Level of Consciousness Alert,Awake,Follows Commands Patient Orientation Name,Age,Birthday,Month,Year, Day of Week,Place,Situation Patient Behavior/Mood Anxious Ability to Follow Directions Good Affect Description Anxious Patient Appearance Well Groomed Hallucination Type Command,Visual Delusion Description Bizarre Depressive Symptoms Difficulty Sleeping,Increased Irritability Suicidal Ideation None Suicide Plan No Plan Homicidal Ideation None Nausea/Vomiting None Document 12/29/24 21:00 [facility] (Rec: 12/29/24 21:09 [facility] [id number]) Psychiatric Symptoms Assessment Symptoms/Complaint Altered Mental Status Duration Changing Over Time History Of Same Yes Context Recent Alcohol Abuse Associated Psychiatric Symptoms Auditory Hallucinations,Visual Hallucinations Details of Plan Pt is currently experiencing auditory & visual hallucinations, making note of her two dogs being present in room. Per , they do not have dogs even at home. Still agreable to detox at this time. Level of Observation Intermittent Level of Consciousness Alert,Awake,Follows Commands Patient Orientation Name,Age,Birthday,Month,Date, Year,Day of Week,Place, Situation Patient Behavior/Mood Anxious,Impulsive Ability to Follow Directions Good Affect Description Anxious Patient Appearance Well Groomed Hallucination Type Auditory,Command,Visual Delusion Description Bizarre Thought Process: Disorganized Depressive Symptoms Difficulty Concentrating, Difficulty Sleeping,Difficulty Making Decisions,Increased Anxiety Suicidal Ideation None Suicide Plan No Plan Homicidal Ideation None Nausea/Vomiting None Document 12/29/24 23:00 SB (Rec: 12/29/24 23:24 SB [id number]) Psychiatric Symptoms Assessment Symptoms/Complaint Altered Mental Status Onset hallucinations periodically Duration Changing Over Time History Of Same Yes Context Recent Alcohol Abuse Associated Psychiatric Symptoms Auditory Hallucinations,Visual Hallucinations Details of Plan Pt reports feeling more calm after admin of meds. She has intermittent hallucinations. Tremors have decreased. Is still agreeable to treament at detox. Level of Observation Intermittent Room placement non-ligature mitigated room Level of Consciousness Alert,Awake,Follows Commands Patient Orientation Name,Age,Birthday,Month,Date, Place,Situation Patient Behavior/Mood Cooperative Affect Description Calm Hallucination Type Auditory,Visual Delusion Description Bizarre Depressive Symptoms Difficulty Concentrating, Increased Anxiety Suicidal Ideation None Suicide Plan No Plan Homicidal Ideation None Nausea/Vomiting None Document 12/30/24 01:00 SB (Rec: 12/30/24 01:25 SB [id number]) Psychiatric Symptoms Assessment Symptoms/Complaint Altered Mental Status Onset intermittent hallucinations Duration Changing Over Time History Of Same Yes Context Recent Alcohol Abuse Associated Psychiatric Symptoms Auditory Hallucinations,Visual Hallucinations Details of Plan Pt resting. Respirations observed. Remains on monitor. Spoke with [facility]. Plan to revaluate in morning due to bed availability. Level of Observation Intermittent Room placement non-ligature mitigated room Level of Consciousness Follows Commands Patient Behavior/Mood Cooperative Affect Description Calm Hallucination Type Auditory,Visual Suicidal Ideation None Suicide Plan No Plan Homicidal Ideation None Nausea/Vomiting None Document 12/30/24 03:00 KW (Rec: 12/30/24 03:31 KW [id number]) Psychiatric Symptoms Assessment Symptoms/Complaint Altered Mental Status Context Recent Alcohol Abuse Improves With Medication Associated Psychiatric Symptoms Visual Hallucinations Associated Symptoms Confusion Level of Observation Intermittent Room placement non-ligature mitigated room Level of Consciousness Alert,Disoriented,Follows Commands Patient Orientation Name,Age,Birthday,Month,Date, Place,Situation Patient Behavior/Mood Cooperative Ability to Follow Directions Good Affect Description Nervous Patient Appearance Well Groomed Hallucination Type Visual Suicidal Ideation None Nausea/Vomiting None Document 12/30/24 05:07 LS (Rec: 12/30/24 05:07 LS Desktop) Psychiatric Symptoms Assessment Symptoms/Complaint Altered Mental Status Document 12/30/24 08:33 KB (Rec: 12/30/24 08:42 KB [id number]) Psychiatric Symptoms Assessment Symptoms/Complaint Altered Mental Status Duration Changing Over Time History Of Same Yes Context Recent Alcohol Abuse Worsens With Alcohol Associated Psychiatric Symptoms Depression,Racing Thoughts Associated Symptoms Insomnia Level of Observation Intermittent Level of Consciousness Awake,Disoriented Patient Orientation Name,Age,Birthday,Year, Situation Patient Behavior/Mood Cooperative Ability to Follow Directions Poor Patient Cognition Impaired No Affect Description Depressed Patient Appearance Disheveled Delusion Description Not Present Thought Process: Impoverished Depressive Symptoms Difficulty Sleeping Feelings of Hopelessness No Suicidal Ideation None Suicide Plan No Plan Homicidal Ideation None Nausea/Vomiting None Document 12/30/24 09:42 KB (Rec: 12/30/24 09:44 KB [id number]) Psychiatric Symptoms Assessment Symptoms/Complaint Altered Mental Status Duration Changing Over Time History Of Same Yes Context Recent Alcohol Abuse,Recent Drug Abuse Worsens With Alcohol,Drug Use Associated Psychiatric Symptoms Auditory Hallucinations, Depression,Racing Thoughts Associated Symptoms Headache Level of Observation Intermittent Level of Consciousness Appropriate,Awake Patient Orientation Name,Age,Birthday,Year, Situation Patient Behavior/Mood Cooperative Ability to Follow Directions Poor Affect Description Anxious Patient Appearance Disheveled Hallucination Type Auditory Thought Process: Impoverished Depressive Symptoms Changes in Appetite,Difficulty Sleeping,Insomnia Suicidal Ideation None Suicide Plan No Plan Homicidal Ideation None Nausea/Vomiting None COMPARATIVE SOCIOLOGY PROFESSOR - Director Of Healthcare Systems Assessment Start: 12/29/24 19:31 Freq: Status: Discharge Protocol: Document 12/29/24 19:32 MW (Rec: 12/29/24 19:42 MW Desktop) COMPARATIVE SOCIOLOGY PROFESSOR/Director Of Healthcare Systems Assessment Start date 12/29/24 Visit Start Time 16:22 End date 12/29/24 Visit End Time 16:45 Total time Care Management spent on 23 minutes patient visit-in minutes Presenting Problem Patient presented to the ED with her for concerns of hallucinations which pt believes to be from severe UTIs. Patient explains she has recurrrent UTIs, she counted 4 in the past to be very severe. Precipitating Event(s) Patient and report having recent falls as recent as 12/25 which ended with 2 stevan in her scalp. Today, patient reports having a fall today where she experienced a laceration on her hand. Patient states she was having hallucinations as recent as this morning where she had a democrat in my house and she has hx of seeing aliens coming from the [place]. Patient reports patient having issues with etoh consumption, She had a BAL 270 on , 12/25 and she has been dry since then. Patient reports having a big glass of wine today, 12/29 at 1400. On average, patient reports drinking 2 glasses of wine/day. No recreational drug use or hard liquor consumption. Patient Strengths Patient is supported by at bedside, she is self-aware. Current Behavioral Health Provider(s) None reported. Include Facility, Provider, Ph. # Psych. Hx Mental Health and Chemical None reported. Dependency Family Hx of Behavioral Abuse None reported. Psychiatric Hospitalizations (date(s)/ None reported. location) Psychosocial information & Support Patient is a 59yo female, Systems resident of [place], with her . School/Work Patient states she is in school. Rehab Facilities? ((Date(s), Location(s) None reported. ) History of Withdrawal? Seizures? No hx reported. Longest Period of Sobriety 10 - 11 months Legal Matters - Outstanding Issues None reported. Orientation (Person/Place/Time) AOx3 Affect (Congruent with Mood?) Full range, congruent with mood Thought Content - Specify/Describe Visual hallucinations: Seeing Obsessions, Delusions, Hallucinations family in the house, seeing dogs in the closet. Hx of seeing aliens coming from the [place] and having a concert on our rocks. Thought Processes (Hnswcgf-Fuspfnzd-Bdxq Logical, thought blocking, Viygejoo-Szjytdsk-Ubeyyoqwez- tangential Xrpntxiemhphnv-Clhwsxy-Yefdfewglewz- Thought Blocking) Speech (Zaiybm-Daac-Qdbthju-Rapid-Soft- Rapid Loud-Pressured) Motor (Zxxauf-Hgyjtmowr-Gjlz-Other) Excessive, shaky Insight (Dryu-Clvy-Ljjc/Limited) Fair/limited Judgement (Tizl-Kjww-Rbyp/Limited) Poor/limited Impulse Control (Adequate-Impaired) Impaired Memory (Pxrmyjpxe-Mkskmu-Rokoel, Remote Impaired-Intact) Concentration (Intact-Impaired) Intact Attention (Intact-Impaired) Intact Behavior (Appropriate-Inappropriate) Appropriate Additional Comment Patient is calm, cooperative and communicative during assessment. Suicidal Ideation (Plan) No Homicidal Ideation (Plan) No Intervention Reviewed chart and discussed with ED Provider pt's medical status and discharge needs. ED COMPARATIVE SOCIOLOGY PROFESSOR meets with patient. Patient endorses hallucinations and symptoms congruent with ETOH withdrawal . ED COMPARATIVE SOCIOLOGY PROFESSOR and patient discuss goals of care. Patient explains they are agreeable to referral to ETOH detox at this time. At this time, it is the opinion of this COMPARATIVE SOCIOLOGY PROFESSOR that patient would benefit from ETOH detox. COMPARATIVE SOCIOLOGY PROFESSOR informs ED provider, Dr. Crow, who indicates agreement. COMPARATIVE SOCIOLOGY PROFESSOR informs RN Najma Rodriguez. RA Plan Once patient is medically clear, ED staff will attempt to find detox placement for patient.
--- NOTE | 2024-12-31 14:12 | PC.NURSE ---
Shift Note Assumed care on patient at 1300, report received from Andrey BRIGGS. Patient check, bed in low position, call light within reach.
--- NOTE | 2024-12-31 14:13 | CM.DANOTE ---
Initial DCP Assessment Note Pt is a 59 yo female, resident of [place], presents to the ER 12/29 with complaints of hallucinating, hx heavy alcohol use, states she has been trying to cut her drinking down at home. Patient with a BAL of 79, admitted for management of ETOH withdrawal and placed on CIWA protocol. PCP: Doug Trevino Payer: Teodora Castillo Spouse See requests to speak with this BOARDER STEAM. Met w/patient and spouse at bedside, patient A+Ox4 throughout our visit. Patient lives independently with spouse. Discussed recent falls and patient reports these falls are not related to alcohol use, patient states she has shoes that trip her. Discussed current ETOH use; patient reports 3 glasses of white wine in the evening. Patient denies hard alcohol or illicit drug use. This BOARDER STEAM asked patient if she feels her drinking is a problem in her life. Patient answers no and further states that she should cut down. Patient tells this BOARDER STEAM she does not consider herself an alcoholic states she has difficulty stopping when she starts, however, only drinks in the evening and socially which patient categorizes as having a problem with drinking. Patient reports drinking since college. No hx of inpatient or outpatient treatment according to patient. Spouse in obvious distress, states patient needs to go to an inpatient treatment facility or she's not coming home. Spouse admits to also drinking. Discussed outpatient vs inpatient [facility] treatment and general what to expect. Spouse prefers [facility] in [facility]. Patient hesitant throughout the remainder of our conversation; says she will go to treatment because I know it will appease him (spouse). Explained to both patient and spouse that if patient goes through treatment to appease someone else, it is likely the treatment will have no lasting effect. It is also very likely that patient will leave treatment earlier than advised. Left patient's room to allow patient and spouse to discuss next steps. SW team will plan to follow clinical closely. Another visit before discharge may be beneficial. Plan: Discharge home anticipated, patient agreeable this visit to getting list of AA meetings. ZECHARIAH Hung Discharge Planning/Care Management CM Discharge Assessment Start: 12/31/24 12:09 Freq: Status: Active Protocol: Document 12/31/24 12:09 JAMAR (Rec: 12/31/24 12:15 JAMAR [id number]) Discharge Planning Assessment Assigned Medical Advisor ZECHARIAH Amor DPOA/Assigned Designee Name zuly Condon Contact Information [phone] Advance Directives? Yes Advance Directives on File Yes: already in system from previous admissions History Provided By Patient,Significant Other, Medical Record Has Patient been admitted in last 30 No days? Comment In the ER 12/25/24 Prior Living Arrangements House Household Members significant other Type of transporation used prior to Drives own vehicle admit Independent with ADL's Yes Is patient alert and oriented? Yes Patient/Family Preference Drug/Alcohol Rehab Comment SO wants patient to go to D/A rehab, patient denies being an alcoholic, says she plans to cut down. Barriers to Discharge No Discharge Plan Home Transportation Arrangement Family or significant other. Referrals Initiated None needed,Other Additional Comment Following closely in case this changes.
[2024-12-31 16:00] VITALS: BP 122/57; PULSE 87; RESP 15; TEMP 36.6; O2SAT 98
--- NOTE | 2024-12-31 16:08 | PT.IIE ---
Current Diagnoses Alcohol use, unspecified with withdrawal, unspecified (12/30/24) Medical History (Last Updated 12/30/24 @ 08:44 by Kvng Schultz MD) Abdominal ascites Acute maxillary sinusitis Alcohol abuse Alcohol withdrawal Cirrhosis Portal hypertension Stress incontinence Well adult exam Physical Therapy Inpatient Evaluation/Re-Eval M1 PT/OT-IP Prior Functional Status Start: 12/31/24 17:22 Freq: NEEDED Status: Active Protocol: Document 12/31/24 15:33 AB (Rec: 12/31/24 17:37 AB [id number]) Medical Review Prior Functional Status Medical History Reviewed Yes Communication able to make needs known Mobility and Gait pt stated that she was independent with all mobilities and ambulation without AD; has h/o falls Social History Household Members significant other Living Arrangements House Number of Floors (Floors) One Floor Number of Stairs To Enter/Railing? 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 PT-IP Current Condition Start: 12/31/24 17:22 Freq: NEEDED Status: Active Protocol: Document 12/31/24 15:33 AB (Rec: 12/31/24 17:37 AB [id number]) Physical Therapy Current Condition Current Condition Evaluation Date 12/31/24 Treatment Diagnosis alcohol withdrawal; UTI; difficulty in walking Onset Date 12/30/24 M3 PT-IP Subjective Start: 12/31/24 17:22 Freq: NEEDED Status: Active Protocol: Document 12/31/24 15:33 AB (Rec: 12/31/24 17:37 AB [id number]) Subjective Physical Therapy Visit Type Type Initial Evaluation Visit Start Time 15:33 Visit Stop Time 16:08 Number of 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 Visits 0 Physical Therapy Visit Comments Patient Comments requesting to use the toilet M4 PT-IP Mobility and Gait Start: 12/31/24 17:22 Freq: NEEDED Status: Active Protocol: Document 12/31/24 15:33 AB (Rec: 12/31/24 17:37 AB [id number]) PT-Bed Mobility Assessment Supine to Sit Supine to Sit Standby Assistance Sit to Supine Sit to Supine Standby Assistance PT-Transfer Assessment Sit to and From Stand Sit to and from Stand Standby Assistance,Contact Guard Assistance,1 Person Assistance,Use of Upper Extremities Equipment Transfer Assistive Device None,Gait Belt,Front Wheeled Walker Orthotic/Prosthetic Devices or Brace: No Transfers Transfer Destination Toilet Transfer Technique ambulated Transfer Ability Level of Assist Contact Guard Assistance, Minimal Assistance,1 Person Assistance Comments Mobility Comments pt in bed and requesting to use the toilet. pt is very impulsive. supine to sit SBA. pt stand up quickly even though instructed to wait for PT. sit to stand SBA to CGA. pt ambulated to the toilet without AD min A and cues. presents with unsteady gait and pt bumping into the cheek/ doors. SBA for toileting needs. CGA for sit to stand from the toilet and ambulated to the sink min A. able to complete handwashing standing CGA for steadiness. pt ambulated to EOB. obtained PLOF and home set up. educated pt on safety and use of AD. educated pt on use of FWW. sit to stand CGA and ambulated in room using FWW CGA initially but is impuslive and needed constant cues to slow down. (+) LOB with turning with pt turning quickly requiring min A for steadiness. pt ambulated back to the bed. informed pt regarding d/c plan of SNF at this time. pt understood. sit to supine SBA. positioned pt in bed. call light and table placed within reach. Gait Assessment Gait Gait Assistance Required: Contact Guard Assist,Minimum Assistance Distance (Feet) 30 Able to Maintain Weight Bearing Status Yes During Gait Assistive Devices Assistive Device None,Gait Belt,Front Wheeled Walker Orthotic/Prosthetic Devices or Brace: No Gait Deviations General Gait Pattern Decreased Feet Clearance Factors Limiting Gait Function Factors Limiting Gait Function Decreased Activity Tolerance, Decreased Strength, Incoordination,Limited Range of Motion,Pain,Poor Balance, Poor Safety Awareness PT-Balance Assessment Sitting Balance and Reactions Static Sitting Balance Ability Good Dynamic Sitting Balance Ability Good Standing Balance and Reactions Static Standing Balance Ability Fair Dynamic Standing Balance Ability Poor Device Used without AD M5 PT-IP Objective Assessments Start: 12/31/24 17:22 Freq: NEEDED Status: Active Protocol: Document 12/31/24 15:33 AB (Rec: 12/31/24 17:37 AB [id number]) Orientation Orientation/Cognition Level of Alertness Alert Orientation Name,Place,Situation Safety Awareness Decreased Safety Awareness Memory Description No Deficits Noted Gross Range of Motion Lower Extremity ROM Assessment Within Functional Limits Strength Lower Extremity Strength Assessment Within Functional Limits Coordination Assessment Assessment Coordination Comments (+) R hand tremors Muscle Tone Muscle Tone WNL Yes M6 PT-IP Treatment Start: 12/31/24 17:22 Freq: NEEDED Status: Active Protocol: Document 12/31/24 15:33 AB (Rec: 12/31/24 17:37 AB [id number]) Physical Therapy Treatment Education Education Provided Safety M7 PT-IP Assessment and Plan Start: 12/31/24 17:22 Freq: NEEDED Status: Active Protocol: Document 12/31/24 15:33 AB (Rec: 12/31/24 17:37 AB [id number]) PT Summary Assessment and Plan Potential Rehabilitation Potential Fair Status of Condition at Evaluation Evolving Summary Impairments Pain,ROM,Strength,Balance, Coordination,Sensation,Tone, Cognition,Bed Mobility, Transfers,Gait,Activity Tolerance Assessment Summary pt is a 59 y/o F who is admitted for alcohol withdrawal, UTI. pt has h/o falls. pt requiring min A for ambulation without AD and CGA to min A with use of FWW. Recommending use of FWW at this time. pt is very impulsive and has decrease safety awareness affecting mobility independence. d/c plan depending on progress but at this time may require SNF rehab. will continue to assess progress. Goals Bed Mobility Goal Independent Transfer Goal Independent,Front Wheeled Walker Gait Goal Independent,Front Wheel Walker Gait Distance 200 Other Goals improve transfers, ambulation using LRAD/without AD mod I ~ 300 ft 2 flightso f steps R rail ascending SBA Days to Meet Goals 10 Frequency of Treatment Frequency Of Treatment Once a Day Treatment Plan Physical Therapy Treatment Plan Bed Mobility Training,Transfer Training,Gait Training, Therapeutic Exercise,Balance Retraining,Post Op Education, Discharge Planning,Hot or Cold Pack,Neuromuscular Re-ed, Coordination Retraining,Manual Therapy Precautions Other Precautions falls Recommendations To Nursing Amount of Assist Needed 1 Person Assist Discharge Recommendations PT Discharge Recommendations SNF Rehab Transportation Needs at Discharge Private Vehicle,Wheelchair/ Cabulance - PT assist 1
--- NOTE | 2024-12-31 19:15 | P.PN_ITS ---
Subjective Subjective Date Patient Seen: 12/31/24 Time Patient Seen: 09:30 Exam Vital Signs (past 8 hours): - 12/31/24 16:00 Temperature 97.9 F Pulse Rate 87 Respiratory Rate 15 Blood Pressure 122/57 L Pulse Oximetry 98 Oxygen Flow Rate 0 Oxygen Delivery Method Room Air Oxygen Flow Rate 0 Objective Labs 12/31/24 05:00 12/29/24 16:47 Labs: Laboratory Results - last 24 hr 12/31/24 05:00 WBC 3.1 L RBC 3.28 L Hgb 10.7 L Hct 31.4 L MCV 95.8 MCH 32.6 MCHC 34.1 RDW 17.0 H Plt Count 71 L Neut % (Auto) 34.6 L D Lymph % (Auto) 36.2 [place] % (Auto) 23.9 H Eos % (Auto) 3.4 Baso % (Auto) 1.9 Neut # (Auto) 1100 L Lymph # (Auto) 1100 [place] # (Auto) 700 Eos # (Auto) 100 Baso # (Auto) 100 PFSH Medical History (Updated 12/30/24 @ 08:44 by Kvng Schultz MD) Alcohol withdrawal Stress incontinence Acute maxillary sinusitis Well adult exam Alcohol abuse Portal hypertension Cirrhosis Abdominal ascites Social History household members: significant other Smoking Status: Never smoker alcohol intake: current Assessment & Plan Assessment & Plan narrative: [place] [address] History & Physical Report Patient: Alba Barboza MR#: [id number] : 1965 Acct:[id number] Age/Sex: 59 / F Admit Date: 12/30/24 Provider: Kvng Schultz MD History of Present Illness History of Present Illness Date Patient Seen: 12/30/24 Chief complaint: hallucinations, possible alcohol related, UTI Narrative: Chief complaint: Tremors hallucinosis secondary to alcohol withdrawal History of present illness: 59-year-old female history of heavy alcohol use head hallucinosis the day prior to today of presentation to the emergency department on 12/29 she was trying to cut back to 2 glasses of wine a day when these symptoms started. She had a fall with a closed head injury 4 days prior to this visit to the emergency room which prompted her to reduce her alcohol intake. Her previous alcohol level was 270 on 12/25 Patient was given 2 doses of phenobarbital and benzodiazepines with good resolution of symptoms and no further hallucinosis. Patient will be referred to admission for alcohol withdrawal and detoxification. Review of systems: No fever chills headache diplopia No difficulty swallowing No chest pain or shortness of breath The paresthesia or paresis Physical exam: Alert female with facial stigmata of alcoholism Neck no JVD Heart rate and rhythm regular Lungs clear Abdomen nondistended bowel sounds present nontender Extremities no cyanosis clubbing edema Patient alert and oriented x4 Neurologic nonfocal [facility] Medical History (Updated 12/30/24 @ 08:44 by Kvng Schultz MD) Alcohol withdrawal Stress incontinence Acute maxillary sinusitis Well adult exam Alcohol abuse Portal hypertension Cirrhosis Abdominal ascites Social History household members: significant other Smoking Status: Never smoker alcohol intake: current Meds Home Medications and Allergies Home Medications Medication Instructions Recorded Confirmed Type amoxicillin 500 mg capsule 500 mg PO TID #21 caps 12/08/24 12/30/24 Rx sulfamethoxazole 800 1 tab PO BID #14 tabs 12/08/24 12/30/24 Rx mg-trimethoprim 160 mg tablet (Bactrim DS) tolterodine 2 mg capsule,extended 2 mg PO BEDTIME #30 caps 12/08/24 12/30/24 Rx release 24 hr (Detrol [place]) Allergies Allergy/AdvReac Type Severity Reaction Status Date / Time No Known Drug Allergies Allergy Verified 12/25/24 18:40 Exam Vital Signs (past 8 hours): - 12/30/2505:30 12/30/2506:00 12/30/2506:00 Temperature Pulse Rate 83 83 Respiratory Rate 16 14 Blood Pressure 124/58 L Pulse Oximetry 93 94 Oxygen Flow Rate 12/30/2506:30 12/31/2507:00 12/31/2507:00 Temperature Pulse Rate 80 89 Respiratory Rate 15 17 Blood Pressure 123/57 L Pulse Oximetry 94 96 Oxygen Flow Rate 12/31/2507:30 12/30/2508:00 12/30/2508:00 Temperature Pulse Rate 80 77 Respiratory Rate 17 13 Blood Pressure 138/62 Pulse Oximetry 97 96 Oxygen Flow Rate 12/30/2508:27 12/30/2508:27 12/30/2508:30 Temperature Pulse Rate 75 81 Respiratory Rate 19 19 Blood Pressure 130/63 Pulse Oximetry 97 98 Oxygen Flow Rate 12/30/2508:44 12/30/2509:00 Temperature 98.0 F Pulse Rate 80 76 Respiratory Rate 18 14 Blood Pressure 130/58 L Pulse Oximetry 98 Oxygen Flow Rate 0 Oxygen Delivery Method Room Air Oxygen Flow Rate 0 Objective Labs 12/29/24 16:47 12/29/24 16:47 Labs: Laboratory Results - last 24 hr 12/29/24 12/29/24 12/29/24 16:47 17:20 17:20 WBC 5.5 RBC 3.45 L Hgb 11.2 L Hct 33.3 L MCV 96.7 MCH 32.4 MCHC 33.6 RDW 16.9 H Plt Count 73 L Neut % (Auto) 56.5 Lymph % (Auto) 20.6 L [place] % (Auto) 20.0 H Eos % (Auto) 1.6 L Baso % (Auto) 1.3 Neut # (Auto) 3100 Lymph # (Auto) 1100 [place] # (Auto) 1100 H Eos # (Auto) 100 Baso # (Auto) 100 Sodium 134 L Potassium 3.6 Chloride 101 Carbon Dioxide 21 L BUN 21 H Creatinine 1.37 H Estimated GFR 45 L BUN/Creatinine Ratio 15.3 Glucose 92 Lactate Calcium 8.8 Total Bilirubin 3.1 H AST 97 H ALT 27 Alkaline Phosphatase 103 Total Protein 7.0 Albumin 3.4 L Globulin 3.6 Albumin/Globulin Ratio 0.9 L TSH 4.18 Free T4 1.75 Urine Color Yellow Urine Appearance Clear Urine pH 6.0 Normal Ur Specific Casey 1.020 Urine Protein Trace H Urine Glucose (UA) Negative Urine Ketones Negative Urine Occult Blood 3+ H Urine Nitrate Negative Urine Bilirubin Negative Urine Urobilinogen 1.0 Ur Leukocyte Esterase Trace H Urine RBC 10-30/hpf H Urine WBC 1-5/hpf Ur Squamous Epith Cells 1-5 /hpf Amorphous Sediment 1+ Urine Bacteria Few (2-10) H Ur Culture Indicated? Cult not indicated Vol Urine Centrifuged 10ml (spun) Salicylates < 1.0 U Opiates 300ng/mL cut Negative Ur Oxycodone Screen Negative Urine Methadone Screen Negative Acetaminophen < 10 Ur Barbiturates Screen Negative U Tricyclic Antidepress Negative Ur Phencyclidine Scrn Negative Ur Amphetamines Screen Negative U Methamphetamines Scrn Negative Ur MDMA Scrn (Ecstasy) Negative U Benzodiazepines Scrn Positive H Urine Cocaine Screen Negative U Marijuana (THC) Screen Negative Urine Specific Casey Normal Ethyl Alcohol 79 H Ur Creatinine Normal 12/29/24 12/29/24 18:28 20:18 WBC RBC Hgb Hct MCV MCH MCHC RDW Plt Count Neut % (Auto) Lymph % (Auto) [place] % (Auto) Eos % (Auto) Baso % (Auto) Neut # (Auto) Lymph # (Auto) [place] # (Auto) Eos # (Auto) Baso # (Auto) Sodium Potassium Chloride Carbon Dioxide BUN Creatinine Estimated GFR BUN/Creatinine Ratio Glucose Lactate 2.1 1.4 Calcium Total Bilirubin AST ALT Alkaline Phosphatase Total Protein Albumin Globulin Albumin/Globulin Ratio TSH Free T4 Urine Color Urine Appearance Urine pH Ur Specific Casey Urine Protein Urine Glucose (UA) Urine Ketones Urine Occult Blood Urine Nitrate Urine Bilirubin Urine Urobilinogen Ur Leukocyte Esterase Urine RBC Urine WBC Ur Squamous Epith Cells Amorphous Sediment Urine Bacteria Ur Culture Indicated? Vol Urine Centrifuged Salicylates U Opiates 300ng/mL cut Ur Oxycodone Screen Urine Methadone Screen Acetaminophen Ur Barbiturates Screen U Tricyclic Antidepress Ur Phencyclidine Scrn Ur Amphetamines Screen U Methamphetamines Scrn Ur MDMA Scrn (Ecstasy) U Benzodiazepines Scrn Urine Cocaine Screen U Marijuana (THC) Screen Urine Specific Casey Ethyl Alcohol Ur Creatinine Assessment & Plan Assessment & Plan narrative: Acute alcohol withdrawal with hallucinosis and delirium with response to phenobarbital and lorazepam in the emergency department. -CIWA protocol as well as scheduled taper prophylaxis with benzodiazepine therapy -IV thiamine for prophylaxis against development Wernicke-Korsakoff syndrome -had discussion with acute inpatient alcohol rehab and alcoholics anonymous to which the patient seemed receptive Acute alcoholic hepatitis -monitor liver enzymes DVT prophylaxis with mechanical only due to risk of fall and previous head trauma status post suture laceration with stevan Full code blue Time-Based Coding Time-Based Coding :: 35 minutes spent with patient and on the chart (including review of chart, obtaining history, exam, reviewing outside data, placing orders, documenting exam and treatment plan, and counseling patient) on 12/31/2024
[2024-12-31 20:00] VITALS: BP 130/67; PULSE 82; RESP 18; TEMP 36.5; O2SAT 97
[2024-12-31] MEDS: SODIUM CHLORIDE 0.9% FLUSH 10 ML IV (20:19)
[2024-12-31] MEDS: SODIUM CHLORIDE 0.45% 1,000 ML 100 ML IV (21:24)
[2024-12-31 22:37] VITALS: BP 130/67; PULSE 72
[2024-12-31] MEDS: cloNIDine 0.1 MG TABLET PO (22:37)
[2024-12-31] MEDS: haloperidoL 5 MG TABLET PO (22:37)
[2024-12-31] MEDS: LORazepam 1 MG TABLET PO (22:40)
--- NOTE | 2024-12-31 23:02 | PC.NURSE ---
Addendum entered by Jemima Florez R.N. 01/01/25 06:12: Pt sleep after reassess of CIWA score of 20, and woke up removed her own IV at 0455, Pt then had a BM and Urinated on the floor. Pt is agitated and refusing to cooperate with staff and RN to do another CIWA assessment. Provider given a verbal okay to leave out IV until day staff can re-evaluate and possibly get IV access. 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
[2025-01-01 00:05] VITALS: PULSE 72; RESP 20
[2025-01-01] MEDS: MULTIVITAMIN 1 TABLET 1 TAB PO (09:30)
[2025-01-01] MEDS: FOLIC ACID 1 MG TABLET PO (09:30)
[2025-01-01] MEDS: SODIUM CHLORIDE 0.9% FLUSH 10 ML IV ×2 (09:30→21:51)
[2025-01-01] MEDS: THIAMINE 100 MG TABLET PO (09:30)
--- NOTE | 2025-01-01 10:33 | PT.IPTN ---
Current Diagnoses Alcohol use, unspecified with withdrawal, unspecified (12/30/24) Physical Therapy Treatment Note M2 PT-IP Current Condition Start: 12/31/24 17:22 Freq: NEEDED Status: Active Protocol: Document 12/31/24 15:33 AB (Rec: 12/31/24 17:37 AB [id number]) Physical Therapy Current Condition Current Condition Evaluation Date 12/31/24 Treatment Diagnosis alcohol withdrawal; UTI; difficulty in walking Onset Date 12/30/24 M3 PT-IP Subjective Start: 12/31/24 17:22 Freq: NEEDED Status: Active Protocol: Document 01/01/25 10:15 KS (Rec: 01/01/25 12:08 KS [id number]) Subjective Physical Therapy Visit Type Type Treatment Note Visit Start Time 10:15 Visit Stop Time 10:33 Notes present Number of HITTING COACH Visits 1 Physical Therapy Visit Comments Patient Comments agreeable to PT M4 PT-IP Mobility and Gait Start: 12/31/24 17:22 Freq: NEEDED Status: Active Protocol: Document 01/01/25 10:15 KS (Rec: 01/01/25 12:08 KS [id number]) PT-Bed Mobility Assessment Supine to Sit Supine to Sit Standby Assistance Sit to Supine Sit to Supine Standby Assistance Scooting Scooting to Edge of Bed Standby Assistance PT-Transfer Assessment Sit to and From Stand Sit to and from Stand Contact Guard Assistance,1 Person Assistance,Use of Upper Extremities Equipment Transfer Assistive Device Gait Belt,Front Wheeled Walker Orthotic/Prosthetic Devices or Brace: No Transfers Transfer Destination Bed Transfer Technique ambulated Transfer Ability Level of Assist Contact Guard Assistance,1 Person Assistance,Use of Upper Extremities Comments Mobility Comments Pt in bed upon arrival, reports feeling somewhat better than yesterday. Agreeable to ambulate. SBA for sup<>sit and scooting EOB. CGA for sit<>stand w/ FWW. Pt then abulated about 40 ft in room using FWW w/ CGA. She was slightly wobbly/unsteady but had no LOB. Able to stand at window for a few minutes and maintain balance. SBA for returning to bed. Gait Assessment Gait Gait Assistance Required: Contact Guard Assist,1 Person Assist Distance (Feet) 40 Able to Maintain Weight Bearing Status Yes During Gait Assistive Devices Assistive Device Gait Belt,Front Wheeled Walker Orthotic/Prosthetic Devices or Brace: No Gait Deviations General Gait Pattern Decreased Feet Clearance Factors Limiting Gait Function Factors Limiting Gait Function Decreased Activity Tolerance, Decreased Strength, Incoordination,Limited Range of Motion,Pain,Poor Balance, Poor Safety Awareness PT-Balance Assessment Sitting Balance and Reactions Static Sitting Balance Ability Good Dynamic Sitting Balance Ability Good Standing Balance and Reactions Static Standing Balance Ability Fair Dynamic Standing Balance Ability Fair Device Used FWW M5 PT-IP Objective Assessments Start: 12/31/24 17:22 Freq: NEEDED Status: Active Protocol: Document 12/31/24 15:33 AB (Rec: 12/31/24 17:37 AB [id number]) Orientation Orientation/Cognition Level of Alertness Alert Orientation Name,Place,Situation Safety Awareness Decreased Safety Awareness Memory Description No Deficits Noted Gross Range of Motion Lower Extremity ROM Assessment Within Functional Limits Strength Lower Extremity Strength Assessment Within Functional Limits Coordination Assessment Assessment Coordination Comments (+) R hand tremors Muscle Tone Muscle Tone WNL Yes M6 PT-IP Treatment Start: 12/31/24 17:22 Freq: NEEDED Status: Active Protocol: Document 01/01/25 10:15 KS (Rec: 01/01/25 12:08 KS [id number]) Physical Therapy Treatment Education Education Provided Safety M7 PT-IP Assessment and Plan Start: 12/31/24 17:22 Freq: NEEDED Status: Active Protocol: Document 01/01/25 10:15 KS (Rec: 01/01/25 12:08 KS [id number]) PT Summary Assessment and Plan Potential Rehabilitation Potential Fair Summary Impairments Pain,ROM,Strength,Balance, Coordination,Sensation,Tone, Cognition,Bed Mobility, Transfers,Gait,Activity Tolerance Progress Towards Goals Slow Progress due to Medical Issues,Slow Progress due to Activity Tolerance Assessment Summary Pt requires SBA for bed mobility and CGA for transfers and ambulation using FWW. She is slightly unsteady on her feet and still shaky, but had no actual LOB while using FWW. Overall, she reports feeling better than yesterday and confirms. Pt is high fall risk due to decreased safety awareness and poor balance. Would benefit from SNF to improve functional mobility independence. Will continue to assess progress. Goals Bed Mobility Goal Independent Transfer Goal Independent,Front Wheeled Walker Gait Goal Independent,Front Wheel Walker Gait Distance 200 Other Goals improve transfers, ambulation using LRAD/without AD mod I ~ 300 ft 2 flightso f steps R rail ascending SBA Days to Meet Goals 10 Frequency of Treatment Frequency Of Treatment Once a Day Treatment Plan Physical Therapy Treatment Plan Bed Mobility Training,Transfer Training,Gait Training, Therapeutic Exercise,Balance Retraining,Post Op Education, Discharge Planning,Hot or Cold Pack,Neuromuscular Re-ed, Coordination Retraining,Manual Therapy Precautions Other Precautions falls Recommendations To Nursing Amount of Assist Needed 1 Person Assist Discharge Recommendations PT Discharge Recommendations SNF Rehab Transportation Needs at Discharge Private Vehicle,Wheelchair/ Cabulance - PT assist 1
--- NOTE | 2025-01-01 11:17 | PM.PN.1 ---
Subjective Subjective Date Patient Seen: 01/01/25 Time Patient Seen: 11:17 Interval history: Chief complaint: Tremors hallucinosis secondary to alcohol withdrawal History of present illness: 59-year-old female history of heavy alcohol use head hallucinosis the day prior to today of presentation to the emergency department on 12/29 she was trying to cut back to 2 glasses of wine a day when these symptoms started. She had a fall with a closed head injury 4 days prior to this visit to the emergency room which prompted her to reduce her alcohol intake. Her previous alcohol level was 270 on 12/25 Patient was given 2 doses of phenobarbital and benzodiazepines with good resolution of symptoms and no further hallucinosis. Patient will be referred to admission for alcohol withdrawal and detoxification. Hospital course: 12/31: Continued on benzodiazepine taper and CIWA symptom driven tremulous and somewhat confused today 01/01: Escalating at agitated delirium overnight had intervened with Haldol and lorazepam. Switching to phenobarbital taper today 65 mg q.6 hours and tapering to 32.5 mg q.6 hours tomorrow Increase thiamine to 500 mg IV q.8 hours for suspected Wernicke-Korsakoff syndrome acute Will need inpatient alcohol detox discussed with Review of systems: No fever chills headache diplopia No difficulty swallowing No chest pain or shortness of breath The paresthesia or paresis Physical exam: Alert female with facial stigmata of alcoholism Neck no JVD Heart rate and rhythm regular Lungs clear Abdomen nondistended bowel sounds present nontender Extremities no cyanosis clubbing edema Patient alert and oriented x4 Neurologic nonfocal Laboratory and imaging at bottom of note: Assessment and plan: Acute alcohol withdrawal with hallucinosis and delirium with response to phenobarbital and lorazepam in the emergency department. -phenobarbital taper due to failure of benzodiazepine taper CIWA symptom driven protocol with benzodiazepine therapy -IV thiamine 500 IV q.8 hours for acute suspected Wernicke-Korsakoff syndrome -had discussion with acute inpatient alcohol rehab and alcoholics anonymous to which the patient seemed receptive Acute alcoholic hepatitis -monitor liver enzymes DVT prophylaxis with mechanical only due to risk of fall and previous head trauma status post suture laceration with stevan Full code blue Time-Based Coding :: 35 minutes spent with patient and on the chart (including review of chart, obtaining history, exam, reviewing outside data, placing orders, documenting exam and treatment plan, and counseling patient) on 01/01/2025 Exam Vital Signs (past 8 hours): Oxygen Delivery Method Room Air Oxygen Flow Rate 0 Objective Labs 12/31/24 05:00 12/29/24 16:47 [facility] Medical History (Updated 12/30/24 @ 08:44 by Kvng Schultz MD) Alcohol withdrawal Stress incontinence Acute maxillary sinusitis Well adult exam Alcohol abuse Portal hypertension Cirrhosis Abdominal ascites Social History household members: significant other Smoking Status: Never smoker alcohol intake: current Assessment & Plan Time-Based Coding :: [TOTAL MINUTES] spent with patient and on the chart (including review of chart, obtaining history, exam, reviewing outside data, placing orders, documenting exam and treatment plan, and counseling patient) on [DATE].
[2025-01-01] MEDS: PHENobarbital 65 MG/ML VIAL 130 MG IV (11:55)
[2025-01-01 12:00] VITALS: PULSE 108; RESP 18; TEMP 36.4; O2SAT 98
[2025-01-01] MEDS: THIAMINE 500 MG in SODIUM CHLORIDE 0.9% 100 ML 420 MG IV ×2 (14:26→21:47)
[2025-01-01 14:44] VITALS: BP 113/58; PULSE 75
[2025-01-01 16:00] VITALS: BP 125/81; PULSE 77; RESP 16; TEMP 36.2; O2SAT 97
[2025-01-01 16:38] LABS: Appearance Urine UA CLEAR; Bilirubin Urine UA NEGATIVE (NEGATIVE); Color Urine UA YELLOW; Glucose Urine UA NEGATIVE (Negative); Ketones Urine UA NEGATIVE (NEGATIVE); Leukocyte Esterase Urine UA NEGATIVE (NEGATIVE); Nitrite Urine UA NEGATIVE (Negative); Occult Blood Urine UA 3+ (Negative); Protein Urine UA NEGATIVE (Negative)
[2025-01-01 16:44] LABS: Bacteria Urine Occasional (0-1); Culture Indicated Urine Cult Not Indicated; RBC Urine 5-10/HPF (0-5/HPF); Squamous Epithelial Cell Urine 0-1 /HPF (0-5/HPF); Urine Volume 10mL (spun); WBC Urine 0-1/HPF (0-5/HPF)
[2025-01-01] MEDS: PHENobarbital 65 MG/ML VIAL IV (17:50)
[2025-01-01 19:32] VITALS: BP 129/66; PULSE 78; RESP 16; TEMP 36.1; O2SAT 99
[2025-01-02] VITALS: BP 105/53; PULSE 61; RESP 16; O2SAT 98
[2025-01-02 05:00] VITALS: BP 124/62; PULSE 72; RESP 16; TEMP 36.4; O2SAT 97
[2025-01-02] MEDS: THIAMINE 500 MG in SODIUM CHLORIDE 0.9% 100 ML 420 MG IV ×3 (07:38→20:27)
[2025-01-02] MEDS: PHENobarbital 65 MG/ML VIAL 32.5 MG IV ×4 (07:38→22:40)
[2025-01-02] MEDS: PANTOPRAZOLE DR 20 MG TABLET PO (07:42)
[2025-01-02 08:00] VITALS: BP 133/61; PULSE 74; RESP 16; TEMP 36.8; O2SAT 96
[2025-01-02] MEDS: SODIUM CHLORIDE 0.9% FLUSH 10 ML IV ×2 (08:14→20:28)
[2025-01-02] MEDS: FOLIC ACID 1 MG TABLET PO (08:14)
[2025-01-02] MEDS: MULTIVITAMIN 1 TABLET 1 TAB PO (08:14)
--- NOTE | 2025-01-02 10:15 | PT.IPTN ---
Current Diagnoses Alcohol use, unspecified with withdrawal, unspecified (12/30/24) Physical Therapy Treatment Note M2 PT-IP Current Condition Start: 12/31/24 17:22 Freq: NEEDED Status: Active Protocol: Document 12/31/24 15:33 AB (Rec: 12/31/24 17:37 AB [id number]) Physical Therapy Current Condition Current Condition Evaluation Date 12/31/24 Treatment Diagnosis alcohol withdrawal; UTI; difficulty in walking Onset Date 12/30/24 M3 PT-IP Subjective Start: 12/31/24 17:22 Freq: NEEDED Status: Active Protocol: Document 01/02/25 10:15 AB (Rec: 01/02/25 13:24 AB [id number]) Subjective Physical Therapy Visit Type Type Treatment Note Visit Start Time 10:15 Visit Stop Time 10:35 Number of CLINIC OFFICE MANAGER Visits 0 Physical Therapy Visit Comments Patient Comments agreeable to do PT M4 PT-IP Mobility and Gait Start: 12/31/24 17:22 Freq: NEEDED Status: Active Protocol: Document 01/02/25 10:15 AB (Rec: 01/02/25 13:24 AB [id number]) PT-Bed Mobility Assessment Supine to Sit Supine to Sit Independent Sit to Supine Sit to Supine Independent PT-Transfer Assessment Sit to and From Stand Sit to and from Stand Contact Guard Assistance,1 Person Assistance,Use of Upper Extremities Equipment Transfer Assistive Device Gait Belt,Front Wheeled Walker Orthotic/Prosthetic Devices or Brace: No Comments Mobility Comments pt in bed and agreeable to do PT. supine to sit SBA. able to sit on EOB SBA. sit to stand SBA and ambulated in room without AD ~ 30 ft CGA and cues. pt continues to have unsteady wide base gait without AD without LOB. pt agreed to walk with fWW. ambulated in the hallway ~ 200 ft using fWW SBA to CGA. completed up/down steps using 2 rail SBA. pt ambulated back to her room using FWW SBA to CGA. sit to supine mod I. positioned pt in bed. call light and table placed within reach. Gait Assessment Gait Gait Assistance Required: Standby Assistance,Contact Guard Assist Distance (Feet) 200 Able to Maintain Weight Bearing Status Yes During Gait Assistive Devices Assistive Device None,Gait Belt,Front Wheeled Walker Orthotic/Prosthetic Devices or Brace: No Gait Deviations General Gait Pattern Ataxic,Decreased Stride Length ,Decreased Feet Clearance,Wide Based Gait Factors Limiting Gait Function Factors Limiting Gait Function Decreased Activity Tolerance, Decreased Strength,Poor Balance,Poor Safety Awareness Stair Climbing Assessment Evaluation Level of Assist On Stairs Standby Assistance Devices Stair Climbing Assistive Devices Left Railing,Right Railing Technique/Endurance Stair Climbing Direction Ascend and Descend Stair Climbing Technique Step to Step Number of Steps Climbed 3 Stair Climbing Set # Repetitions (reps) 2 M5 PT-IP Objective Assessments Start: 12/31/24 17:22 Freq: NEEDED Status: Active Protocol: Document 12/31/24 15:33 AB (Rec: 12/31/24 17:37 AB [id number]) Orientation Orientation/Cognition Level of Alertness Alert Orientation Name,Place,Situation Safety Awareness Decreased Safety Awareness Memory Description No Deficits Noted Gross Range of Motion Lower Extremity ROM Assessment Within Functional Limits Strength Lower Extremity Strength Assessment Within Functional Limits Coordination Assessment Assessment Coordination Comments (+) R hand tremors Muscle Tone Muscle Tone WNL Yes M6 PT-IP Treatment Start: 12/31/24 17:22 Freq: NEEDED Status: Active Protocol: Document 01/02/25 10:15 AB (Rec: 01/02/25 13:24 AB [id number]) Physical Therapy Treatment Education Education Provided Safety M7 PT-IP Assessment and Plan Start: 12/31/24 17:22 Freq: NEEDED Status: Active Protocol: Document 01/02/25 10:15 AB (Rec: 01/02/25 13:24 AB [id number]) PT Summary Assessment and Plan Potential Rehabilitation Potential Fair Summary Impairments Balance,Coordination,Cognition ,Bed Mobility,Transfers,Gait, Activity Tolerance Progress Towards Goals Slow Progress due to Medical Issues,Slow Progress - Other Assessment Summary pt is progressing with mobility and able to ambulate without AD CGA and presents with unsteady wide base gait. Recommending continued use of FWW at this time for safety. pt plans to go home with spouse to assist her and will benefit from HHPT. Goals Bed Mobility Goal Independent Transfer Goal Independent,Front Wheeled Walker Gait Goal Independent,Front Wheel Walker Gait Distance 200 Other Goals improve transfers, ambulation using LRAD/without AD mod I ~ 300 ft 2 flightso f steps R rail ascending SBA Days to Meet Goals 10 Frequency of Treatment Frequency Of Treatment Once a Day Treatment Plan Physical Therapy Treatment Plan Bed Mobility Training,Transfer Training,Gait Training, Therapeutic Exercise,Balance Retraining,Post Op Education, Discharge Planning,Hot or Cold Pack,Neuromuscular Re-ed, Coordination Retraining,Manual Therapy Precautions Other Precautions falls Recommendations To Nursing Amount of Assist Needed 1 Person Assist Discharge Recommendations PT Discharge Recommendations Home with 07/05 Assist Available,Home Health Transportation Needs at Discharge Private Vehicle,Wheelchair/ Cabulance - PT assist 1
[2025-01-02 12:00] VITALS: BP 127/63; PULSE 76; RESP 16; TEMP 36.6; O2SAT 99
--- NOTE | 2025-01-02 14:46 | CM.DPC ---
I spoke to patient regarding her plan for abstaining from alcohol after she leaves the hospital. Patient said she is feeling very motivated to stop drinking for good. Patient said she is planning to begin AA meetings right away. I printed a copy of AA meetings happening in [facility] this month. Patient said she does not currently feel open to inpatient alchol treatment. I don't think I will need it. Patient said if that changes and she is having a hard time staying away from alcohol she will be open to inpatient treatment. I gave the patient a printed list of local substance use treatment facilities. Patient said if this becomes necessary she will not hesitate to call one of these places to begin care. Patient understands that most of the listed facilities with provide an assessment and will then arrange inpatient care to begin.
--- NOTE | 2025-01-02 15:14 | DIET.CONS ---
Dietary Consultation Note Admission Date: 12/30/2024 08:37 Assessment: RD f/u. Met with pt at bedside. Reports slightly reduced PO intakes in last week or two - sometimes forgetting to eat breakfast. Reports she has to have scheduled meals and reminders to not forget to eat. Normally does 4-5 small freq meal and homemade dinner. Options include things such as apple and pb, cheese and crackers, deli sandwiches. Reports weight is between 139-145 lb (63-66 kg). Reports no recent weight loss. Ht: 172.72 cm Wt: 64.41 kg BMI: 21.6 UBW: 69.938 kg on 08/07/24 (-8% weight loss in 5 months, non-severe), 67.755 kg on 12/08/24 (-5% weight loss within 1 month, moderate wt at doctor's office) Last BM: 01/01/25 (01/01/25 06:00) MNA: Dat Score: 21 Diet: 12/30/24 Lunch General (Regular) Diet Diet Modifications: Safety Tray needed?: No Nutrition Percent Meal Consumed 60 01/01/25 18:00 Labs: RBC 3.28 X10^6/uL (4.0-5.2) L 12/31/24 05:00 Hgb 10.7 g/dL (12.0-16.0) L 12/31/24 05:00 Hct 31.4 % (36-46) L 12/31/24 05:00 Creatinine 1.37 mg/dL (0.52-1.04) H 12/29/24 16:47 Lactate 1.4 mmol/L (0.7-2.1) 12/29/24 20:18 Nutrition Diagnosis: Unintentional weight loss r/t excessive EtOH intake and skipping breakfast aeb 5% weight loss in 1 month (moderate) Interventions: -Discussed methods to remembering to have breakfast daily - pt will have reminder on fridge -Discussed ONS, smoothie, and additional protein based food options patient can add onto tray to support energy-protein needs. Will consider. Coordination with unit host. Monitoring/Evaluations: PO intakes Electronically Signed by: Erma Anthony 01/02/25 15:14 Clinical Dietitian [address] [address]
[2025-01-02 16:00] VITALS: BP 116/57; PULSE 77; RESP 16; TEMP 36.3; O2SAT 97
[2025-01-02] MEDS: SODIUM CHLORIDE 0.45% 1,000 ML 100 ML IV (17:54)
[2025-01-02 19:56] VITALS: BP 130/74; PULSE 77; RESP 18; TEMP 37; O2SAT 98
[2025-01-03] VITALS: BP 136/82; PULSE 84; RESP 19; TEMP 36.6; O2SAT 96
[2025-01-03 04:00] VITALS: BP 140/86; PULSE 77; RESP 18; TEMP 36.7; O2SAT 98
[2025-01-03] MEDS: SODIUM CHLORIDE 0.45% 1,000 ML 100 ML IV (04:28)
[2025-01-03] MEDS: THIAMINE 500 MG in SODIUM CHLORIDE 0.9% 100 ML 420 MG IV (04:42)
[2025-01-03] MEDS: PANTOPRAZOLE DR 20 MG TABLET PO (06:10)
[2025-01-03 08:00] VITALS: BP 136/76; PULSE 92; RESP 16; TEMP 36.6; O2SAT 98
[2025-01-03] MEDS: SODIUM CHLORIDE 0.9% FLUSH 10 ML IV (09:00)
[2025-01-03] MEDS: MULTIVITAMIN 1 TABLET 1 TAB PO (09:35)
[2025-01-03] MEDS: FOLIC ACID 1 MG TABLET PO (09:36)
[2025-01-03 12:00] VITALS: BP 122/62; PULSE 87; RESP 16; TEMP 36.2; O2SAT 100
--- NOTE | 2025-01-03 12:05 | PT.IPTN ---
Current Diagnoses Alcohol use, unspecified with withdrawal, unspecified (12/30/24) Physical Therapy Treatment Note M2 PT-IP Current Condition Start: 12/31/24 17:22 Freq: NEEDED Status: Active Protocol: Document 12/31/24 15:33 AB (Rec: 12/31/24 17:37 AB [id number]) Physical Therapy Current Condition Current Condition Evaluation Date 12/31/24 Treatment Diagnosis alcohol withdrawal; UTI; difficulty in walking Onset Date 12/30/24 M3 PT-IP Subjective Start: 12/31/24 17:22 Freq: NEEDED Status: Active Protocol: Document 01/03/25 12:05 DLM (Rec: 01/03/25 12:25 DLM [id number]) Subjective Physical Therapy Visit Type Type Treatment Note Visit Start Time 11:30 Visit Stop Time 12:05 Notes 35 minutes Number of SECURITIES SUPERVISOR Visits 0 Physical Therapy Visit Comments Patient Comments She does not feel she needs the walker any more. Patient Goals Discharge home with help from S.O. Therapy Pain Assessment Pain Present Pain Present Denied Pain M4 PT-IP Mobility and Gait Start: 12/31/24 17:22 Freq: NEEDED Status: Active Protocol: Document 01/03/25 12:05 DLM (Rec: 01/03/25 12:25 DLM [id number]) PT-Bed Mobility Assessment Rolling Level of Assist Independent Supine to Sit Supine to Sit Independent Sit to Supine Sit to Supine Independent Scooting Scooting to Edge of Bed Independent Scooting Up and Down in Bed Independent PT-Transfer Assessment Sit to and From Stand Sit to and from Stand Standby Assistance Equipment Transfer Assistive Device Gait Belt Transfers Transfer Destination Bed Transfer Technique Stand Step Pivot Transfer Ability Level of Assist Standby Assistance,Contact Guard Assistance,Use of Upper Extremities Comments Mobility Comments She frequently uses her UE's to assist with sit-stand. Testing shows she can so this from the bed without UE support. She continues to use a wider base of support in standing for balance. Gait Assessment Gait Gait Assistance Required: Contact Guard Assist Distance (Feet) 300 Assistive Devices Assistive Device None,Gait Belt Gait Deviations General Gait Pattern Ataxic,Wide Based Gait Factors Limiting Gait Function Factors Limiting Gait Function Decreased Activity Tolerance, Poor Balance Comments Gait Comments she has wide bases of support with gait, mild ataxia, mild increase in lateral pattern but no losses of balance Stair Climbing Assessment Comments Stair Climbing Comments verbally discussed her concerns about doing stairs at home PT-Balance Assessment Sitting Balance and Reactions Static Sitting Balance Ability Good Dynamic Sitting Balance Ability Good Standing Balance and Reactions Static Standing Balance Ability Fair Dynamic Standing Balance Ability Fair Device Used none Balance Tests Single Limb Standing right 2-3 sec, left unable to hold Romberg increased sway with eyes open, losses of balance w/EC Tandem Standing needs assistance Comments Other Balance Tests/Deviations/Treatment able to industrial design intern narrow base : of support to do head motions without loss of balance Functional Assessments Functional Tests Tinetti Balance and Gait Assessment Balance=07/30, gait=04/25, Total M5 PT-IP Objective Assessments Start: 12/31/24 17:22 Freq: NEEDED Status: Active Protocol: Document 01/03/25 12:05 DLM (Rec: 01/03/25 12:25 DL [id number]) Orientation Orientation/Cognition Level of Alertness Alert Orientation Name,Age,Birthday,Month,Date, Year,Day of Week,Place, Situation Language Function Ability No Deficits Noted Safety Awareness Decreased Safety Awareness Memory Description No Deficits Noted Gross Range of Motion Upper Extremity ROM Assessment Within Functional Limits Lower Extremity ROM Assessment Within Functional Limits Strength Upper Extremity Strength Assessment Within Functional Limits Lower Extremity Strength Assessment Within Functional Limits Coordination Assessment Gross Coordination Gross Coordination Impaired Assessment Finger to Nose Test Minimal Impairment Foot Tapping Test Minimal Impairment Heel on Haley Test Minimal Impairment Coordination Comments right hand tremor Sensation Assessment Sensation Gross Sensation WNL Muscle Tone Muscle Tone WNL Yes M6 PT-IP Treatment Start: 12/31/24 17:22 Freq: NEEDED Status: Active Protocol: Document 01/03/25 12:05 DLM (Rec: 01/03/25 12:25 DL [id number]) Physical Therapy Treatment Education Education Provided Safety Other Treatments Other Treatment Performed balance retraining activities in standing 5 x sit-stand performed from bed without UE support x 3 reps. M7 PT-IP Assessment and Plan Start: 12/31/24 17:22 Freq: NEEDED Status: Active Protocol: Document 01/03/25 12:05 DLM (Rec: 01/03/25 12:25 DL [id number]) PT Summary Assessment and Plan Summary Impairments Balance,Coordination,Cognition ,Transfers,Gait,Activity Tolerance Progress Towards Goals Progressing Toward Goals Assessment Summary Alba continues to progress well in therapy. She was able to ambulate in the hassan without an assistive device with mild decreased standing balance and wide base of support. Her activity tolerance continues to improve . She does not want to have a walker for home use. She tolerated balance retraining activities well. Her S.O. plans to help her at home. She could benefit from ongoing Physical therapy for balance and coordination training that will help decrease her fall risks. Goals Bed Mobility Goal Independent Transfer Goal Independent,Front Wheeled Walker Gait Goal Independent,Front Wheel Walker Gait Distance 200 Other Goals improve transfers, ambulation using LRAD/without AD mod I ~ 300 ft 2 flights of steps R rail ascending SBA Days to Meet Goals 10 Frequency of Treatment Frequency Of Treatment Once a Day Treatment Plan Physical Therapy Treatment Plan Transfer Training,Gait Training,Therapeutic Exercise, Balance Retraining,Discharge Planning,Neuromuscular Re-ed, Coordination Retraining Precautions Other Precautions fall risk, seizure pads on bed Recommendations To Nursing Amount of Assist Needed 1 Person Assist Discharge Recommendations PT Discharge Recommendations Home with 07/05 Assist Available,Home Health Equipment Needed for Home Before her S.O. wants to bring gait Discharge belt home to assist pt as needed Transportation Needs at Discharge Private Vehicle - PT assist 1P
--- NOTE | 2025-01-03 12:43 | PM.DS.IH.1 ---
History of Present Illness History of Present Illness Date Patient Seen: 01/03/25 Time Patient Seen: 08:27 Chief complaint: hallucinations, possible alcohol related, UTI Narrative: 59-year-old female history of heavy alcohol use head hallucinosis the day prior to today of presentation to the emergency department on 12/29 she was trying to cut back to 2 glasses of wine a day when these symptoms started. She had a fall with a closed head injury 4 days prior to this visit to the emergency room which prompted her to reduce her alcohol intake. Her previous alcohol level was 270 on 12/25 Patient was given 2 doses of phenobarbital and benzodiazepines with good resolution of symptoms and no further hallucinosis. Patient will be referred to admission for alcohol withdrawal and detoxification. Discharge Providers Provider Date of admission: 12/30/24 08:37 Discharge Date: 01/03/25 Primary care physician: Doug Trevino DO Consults: 12/29/24 20:03 Consult to [facility] Cutter Operator Helper Stat Comment: Cutter Operator Helper Consult needed for:: Substance abuse 12/30/24 08:46 Consult to Dietitian, Adult Routine Comment: Reason For Exam: malnutrition 12/31/24 10:49 Consult to Physical Therapy Evaluate & Treat Comment: Physician Instructions: Evaluate and Treat Discharge provider: Cassius Rivera MD Summary Hospital Course Discharge Diagnosis: 1. Acute alcohol withdrawal with hallucinosis and delirium 2. Acute alcoholic hepatitis 3. Alcohol use disorder 4. Sinusitis 5. 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 Symptoms resolved and she was doing well at discharge and not requiring further alcohol withdrawal therapy. Options were explored including acute inpatient alcohol rehab and the patient decided to pursue inpatient alcohol rehabilitation through the [facility] following discharge. She will complete and continue antibiotics prescribed prior to admission following discharge. Status at Discharge Cognitive/behavioral status at discharge: oriented Functional status at discharge: independent ambulation Overall status at discharge: patient is back to baseline Time Spent with Patient Time spent: Greater than 30 minutes Exam Vital Signs (past 8 hours): - 01/03/25 08:00 Temperature 97.8 F Pulse Rate 92 H Respiratory Rate 16 Blood Pressure 136/76 Pulse Oximetry 98 Oxygen Flow Rate 0 Oxygen Delivery Method Room Air Oxygen Flow Rate 0 Narrative Exam Narrative: Alert female, pleasant, calm Neck no JVD Heart rate and rhythm regular Lungs clear Abdomen nondistended bowel sounds present nontender Extremities no cyanosis clubbing edema Patient alert and oriented x 3 Neurologic nonfocal Objective Imaging CT scan - head: Radiologist's impression: No acute intracranial pathology. 12/29/2024 Labs 12/31/24 05:00 12/29/24 16:47 [facility] Medical History Abdominal ascites Acute maxillary sinusitis Alcohol abuse Alcohol withdrawal Cirrhosis Portal hypertension Stress incontinence Well adult exam Social History household members: significant other Smoking Status: Never smoker alcohol intake: current Discharge Plan Discharge Plan Patient Disposition: Home Provider Discharge Comment: Followup with Dr. Trevino 1 week, and inpatient alcohol rehabilitation as planned Discharge orders & Medications Prescriptions: New thiamine HCl (vitamin B1) 100 mg tablet 100 mg PO DAILY Qty: 30 0RF folic acid 1 mg tablet 1 mg PO DAILY Qty: 30 0RF amoxicillin 500 mg tablet 500 mg PO TID Qty: 1 0RF sulfamethoxazole-trimethoprim 800-160 mg tablet 1 tab PO BID Qty: 1 0RF Continued tolterodine [Detrol LA] 2 mg capsule,extended release 24hr 2 mg PO BEDTIME Qty: 30 2RF Discontinued amoxicillin 500 mg capsule 500 mg PO TID Qty: 21 0RF sulfamethoxazole-trimethoprim [Bactrim DS] 800-160 mg tablet 1 tab PO BID Qty: 14 0RF Rx Instructions: Take at onset of UTI symptoms Follow up/Referrals: Doug Trevino, DO [Primary Care Provider] - Visit Report/Discharge Packet Stand Alone Forms: Patient Portal/API, Stroke Signs & Symptoms Discharge Data Primary Care Provider: Doug Trevino Quality MIPS - Admit I confirm the patient?s Advance Care Plan is present, Code status is documented, Surrogate decision maker is in patient?s record [If Yes, STOP here]: Yes MIPS - Meds 'Current medications' to include all prescriptions, [id number] products, herbals, cannabis/cannabidiol products, and vitamin/mineral/dietary (nutritional) supplements. I have utilized all available resources to obtain, update, or review the patient?s current medications. [If Yes, STOP here]: Yes MIPS - DC The patient has a history of heart transplant or Left Ventricular Assist Device (LVAD). If yes, STOP here.: No The patient has current or prior documentation of left ventricular ejection fraction (LVEF) less than or equal to 40%, or moderate or severely depressed left ventricular systolic function.: No A. The patient was prescribed or already taking an Angiotensin-Converting Enzyme (ALICIA) Inhibitor, or Angiotensin Receptor Nanette (ARB).: No B. The patient was prescribed or already taking a beta-nanette. [If Yes to Both A & B, STOP here]: No Patient not prescribed/taking ALICIA or ARB, no reason given.: No Patient not prescribed/taking beta-nanette, no reason given.: No PROFEE Charge Codes Discharge inpatient/observation: [id number]
--- NOTE | 2025-01-03 12:58 | PC.NURSE ---
D/c packet printed and reviewed with pt and her spouse. Discussed new meds that were sent to pharmacy. IV removed. Pt exited via w/c with HOSPITAL WARD CLERK and spouse to private vehicle.
== END 2025-01-03 13:10 | disposition home or self-care (01) | DRG 897 ==
LOC: ED 12-30 08:19 → AC 12-30 12:43
PROVIDERS: Emergency Medicine; Admitting Provider Internal Medicine; Emergency Provider Emergency Medicine; PCP Family Medicine; Referring Provider Emergency Medicine; Visit Provider Internal Medicine
DX: F10.951 Alcohol use, unspecified with alcohol-induced psychotic disorder with hallucinations (principal); N39.0 Urinary tract infection, site not specified; K70.10 Alcoholic hepatitis without ascites; Y90.3 Blood alcohol level of 60-79 mg/100 ml; F10.931 Alcohol use, unspecified with withdrawal delirium; F10.96 Alcohol use, unspecified with alcohol-induced persisting amnestic disorder; J01.00 Acute maxillary sinusitis, unspecified
CPT/HCPCS: 36415; 70450; 80053; 80305; 80320; 80329; 81001; 82962; 83605; 84439; 84443; 85025; 96365; 96375; 96376; 97112; 97116; 97163; 97530; 99284; G0480; J0696; J2060; J2560; J7050

== ENCOUNTER → 2025-07-22 13:09 | Outpatient (CLI) | payer BC, SELFPAY ==
[2024-12-30 09:02] VITALS: BMI 21.6
== END ==
PROVIDERS: PCP Family Medicine; Visit Provider Chiropractor
DX: R39.15 Urgency of urination (principal); N89.8 Other specified noninflammatory disorders of vagina
CPT/HCPCS: 87086; 87210